=== PATIENT | female | born 1995 | race Caucasian/White ===

== ENCOUNTER 2016-07-13 02:15 | Emergency (ER) | payer BC ==
[2016-07-13 02:27] VITALS: BP 111/77
[2016-07-13] MEDS ORDERED: Sodium Chloride 0.9% 10 ML Syringe FLUSH PRN (02:36)
[2016-07-13] MEDS ORDERED: Famotidine 20 MG/2 ML SDV IVPUSH ONE (02:36)
[2016-07-13] MEDS ORDERED: Ondansetron 4 MG/2 ML SDV IVPUSH ONE (02:36)
[2016-07-13] MEDS ORDERED: Sodium Chloride 0.9% 1,000 ML IV SCH (02:45)
--- NOTE | 2016-07-13 03:56 | EDM.PDOC ---
ED HPI GI/ABDOMINAL - General Chief Complaint: Gastrointestinal Problem Stated Complaint: VOMITING BLOOD Time Seen by Provider: 07/13/16 02:35 Source of Information: Reports: Patient, RN notes reviewed - History of Present Illness INITIAL COMMENTS - FREE TEXT/NARRATIVE: 20-year-old female vomited blood twice this floor person about one hour ago just a few minutes apart. She had been drinking alcohol quite heavily this last evening about 1-1/2 bottles of wine per her report. She was drinking some type of white wine. She then became ill about one hour ago felt like she needed to vomit, went to the bathroom and did vomit and with that there was a small amount of blood associated with the vomitus. When she vomited a second time once again there was a small amount of blood with that. She continues to feel very mildly nauseated. She's had no abdominal chest or other discomfort. She has not been having recent abdominal discomfort or heartburn. No history of peptic ulcer disease. No other known medical problems. - Related Data Allergies/ADRs: Allergies Allergy/AdvReac Type Severity Reaction Status Date / Time No Known Allergies Allergy Verified 07/13/16 02:27 Past Medical History Neurological History: Reports: Migraines Psychiatric History: Reports: Anxiety, Depression Social & Family History - Tobacco Use Smoking Status *Q: Current Every Day Smoker Years of Tobacco use: 5 Packs/Tins Daily: 0.5 Used Tobacco, but Quit: No Second Hand Smoke Exposure: Yes - Caffeine Use Caffeine Use: Reports: Soda - Recreational Drug Use Recreational Drug Use: No ED ROS GENERAL - Review of Systems Review Of Systems: See Below Constitutional: Reports: no symptoms HEENT: Denies: Throat pain Respiratory: Denies: shortness of breath Cardiovascular: Denies: Chest pain GI/Abdominal: Reports: Hematemesis, Nausea, Vomiting. Denies: Abdominal pain Musculoskeletal: Reports: no symptoms Skin: Reports: no symptoms Neurological: Reports: dizziness (mild). Denies: trouble speaking, difficulty walking ED EXAM, GI/ABD - Physical Exam Exam: See Below General Appearance: alert, no apparent distress Eyes: bilateral: pale conjunctiva (there is mild conjunctival injection bilaterally) Nose: normal inspection, other (no blood or other drainage) Throat/Mouth: Normal inspection, Normal oropharynx, Other (no intraoral lesions visible, no blood) Head: atraumatic. No: facial swelling Neck: supple, full range of motion Respiratory/Chest: lungs clear, normal breath sounds Cardiovascular: tachycardia GI/Abdominal: soft, non tender. No: guarding, rebound Extremities: normal inspection, normal range of motion Neurological: alert, oriented, no motor/sensory deficits Skin Exam: Warm, Dry, Normal color, No rash Course - Vital Signs Last Recorded V/S: Last Vital Signs Temp 97.1 F 07/13/16 02:22 Pulse 105 H 07/13/16 02:22 Resp 18 07/13/16 02:22 BP 111/77 07/13/16 02:22 Pulse Ox 100 07/13/16 02:22 - Orders/Labs/Meds Orders: Active Orders 24 hr Category Date Time Status Peripheral IV Care [RC] . DIRECTED Care 07/13/16 02:36 Active Sodium Chloride 0.9% [Normal Saline] 1,000 ml Med 07/13/16 02:45 Active IV ONETIME Sodium Chloride 0.9% [Saline Flush] Med 07/13/16 02:36 Active 10 ml FLUSH ASDIRECTED PRN Peripheral IV Insertion Adult [OM.PC] Stat Oth 07/13/16 02:36 Ordered Medication Orders Sodium Chloride (Normal Saline) 1,000 mls @ 999 mls/hr IV ONETIME VALDO Last Admin: 07/13/16 02:48 Dose: 999 mls/hr Sodium Chloride (Saline Flush) 10 ml FLUSH ASDIRECTED PRN PRN Reason: Keep Vein Open Last Admin: 07/13/16 02:45 Dose: 10 ml Labs: Laboratory Tests 07/13/16 07/13/16 Range/Units 02:45 02:45 WBC 10.28 H (3.98-10.04) K/mm3 RBC 5.07 (3.98-5.22) M/mm3 Hgb 15.6 (11.2-15.7) gm/L Hct 45.1 H (34.1-44.9) % MCV 89.0 (79.4-94.8) fl MCH 30.8 (25.6-32.2) pg MCHC 34.6 (32.2-35.5) g/dl RDW Std Deviation 42.0 (36.4-46.3) fL Plt Count 284 (182-369) K/mm3 MPV 9.7 (9.4-12.3) fl Neut % (Auto) 69.0 (34.0-71.1) % Lymph % (Auto) 24.6 (19.3-51.7) % [place] % (Auto) 4.7 (4.7-12.5) % Eos % (Auto) 0.5 L (0.7-5.8) Baso % (Auto) 0.6 (0.1-1.2) % Neut # 7.10 H (1.56-6.13) K/mm3 Lymph # 2.53 (1.18-3.74) K/mm3 [place] # 0.48 H (0.24-0.36) K/mm3 Eos # 0.05 (0.04-0.36) K/mm3 Baso # 0.06 (0.01-0.08) K/mm3 Sodium 141 (136-145) mEq/L Potassium 3.9 (3.5-5.1) mEq/L Chloride 105 (98-107) mEq/L Carbon Dioxide 24 (21-32) mEq/L Anion Gap 15.9 H (5-15) BUN 9 (7-18) mg/dL Creatinine 0.6 (0.55-1.02) mg/dL Est Cr Clr Drug Dosing 105.64 mL/min Estimated GFR (MDRD) > 60 (>60) mL/min BUN/Creatinine Ratio 15.0 (14-18) Glucose 102 (74-106) mg/dL Calcium 8.3 L (8.5-10.1) mg/dL Total Bilirubin 0.2 (0.2-1.0) mg/dL AST 17 (15-37) U/L ALT 24 (14-59) U/L Alkaline Phosphatase 77 (46-116) U/L Total Protein 7.6 (6.4-8.2) g/dl Albumin 4.1 (3.4-5.0) g/dl Globulin 3.5 gm/dL Albumin/Globulin Ratio 1.2 (1-2) Ethyl Alcohol 0.22 (0.00) gm% Meds: Medications Generic Name Dose Route Start Last Admin Trade Name Freq PRN Reason Stop Dose Admin Sodium Chloride 1,000 mls @ 999 mls/hr 07/13/16 02:45 07/13/16 02:48 Normal Saline IV 999 mls/hr ONETIME VALDO Administration Sodium Chloride 10 ml 07/13/16 02:36 07/13/16 02:45 Saline Flush FLUSH 10 ml ASDIRECTED PRN Administration Keep Vein Open Discontinued Medications Generic Name Dose Route Start Last Admin Trade Name Isaacq PRN Reason Stop Dose Admin Famotidine 20 mg 07/13/16 02:36 07/13/16 02:52 Pepcid IVPUSH 07/13/16 02:37 20 mg ONETIME ONE Administration Ondansetron HCl 4 mg 07/13/16 02:36 07/13/16 02:49 Zofran IVPUSH 07/13/16 02:37 4 mg ONETIME ONE Administration - Re-Assessments/Exams Free Text/Narrative Re-Assessment/Exam: 07/13/16 04:00. there has been no nausea, vomiting or hematemesis while here in the ED. No chest or abdominal pain. Labs are as documented. Discharge instructions as documented Departure - Departure Time of Disposition: 03:55 Disposition: Home, Self-Care 01 Condition: fair Clinical Impression: Hematemesis Qualifiers: Nausea presence: with nausea Qualified Code(s): K92.0 - Hematemesis Alcohol intoxication Qualifiers: Complication of substance-induced condition: uncomplicated Qualified Code(s): F10.120 - Alcohol abuse with intoxication, uncomplicated Referrals: PCP,None [Primary Care Provider] - Forms: ED Department Discharge Additional Instructions: rest, drink plenty of water this morning, stick to clear liquids for the next few hours and then careful bland diet as tolerated, avoid further alcohol. Followup clinic as needed, return to ED as needed - My Orders Last 24 Hours: My Active Orders 07/13/16 02:36 Peripheral IV Care [RC] . DIRECTED Sodium Chloride 0.9% [Saline Flush] 10 ml FLUSH ASDIRECTED PRN Peripheral IV Insertion Adult [OM.PC] Stat 07/13/16 02:45 Sodium Chloride 0.9% [Normal Saline] 1,000 ml IV ONETIME - Assessment/Plan Last 24 Hours: My Active Orders 07/13/16 02:36 Peripheral IV Care [RC] . DIRECTED Sodium Chloride 0.9% [Saline Flush] 10 ml FLUSH ASDIRECTED PRN Peripheral IV Insertion Adult [OM.PC] Stat 07/13/16 02:45 Sodium Chloride 0.9% [Normal Saline] 1,000 ml IV ONETIME
== END 2016-07-13 04:11 | disposition home or self-care (01) ==
LOC: JD.ED 02:15
DX: K92.0 Hematemesis (principal); F10.120 Alcohol abuse with intoxication, uncomplicated; F17.200 Nicotine dependence, unspecified, uncomplicated
CPT/HCPCS: 36415; 80053; 85025; 96361; 96374; 96375; 99285; G0480; J2405; J7040; J7050; 99284

== ENCOUNTER 2020-05-10 13:04 | Emergency (ER) | payer SELFPAY ==
[2020-05-10 13:17] VITALS: BP 125/75; PULSE 116
[2020-05-10] MEDS ORDERED: Ketorolac 60 MG/2 ML SDV IM ONE (13:31)
--- NOTE | 2020-05-10 13:35 | EDM.PDOC ---
ED HPI GENERAL MEDICAL PROBLEM - General Chief Complaint: Flank Pain Stated Complaint: R SIDE PAIN Time Seen by Provider: 05/10/20 13:12 Source of Information: Reports: Patient History Limitations: Reports: No Limitations - History of Present Illness INITIAL COMMENTS - FREE TEXT/NARRATIVE: 24-year-old female presents to the emergency department with complaints of right anterior posterior rib pain. Patient states that 2 days ago she fell out of bed and hit her right lateral rib area on the corner of the nightstand. 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 Patient states it is almost unbearable to take a deep breath. Right Chest Pain Score (Numeric/FACES): 10 - Related Data Allergies Allergy/AdvReac Type Severity Reaction Status Date / Time No Known Allergies Allergy Verified 05/10/20 13:15 Home Meds: Home Meds Naproxen 500 mg PO Q12H #10 tablet 05/10/20 [Rx] Past Medical History - Past Health History Medical/Surgical History: Denies Medical/Surgical History Neurological History: Reports: Migraines Psychiatric History: Reports: Anxiety, Depression Social & Family History - Tobacco Use Tobacco Use Status *Q: Never Tobacco User - Caffeine Use Caffeine Use: Reports: Soda ED ROS GENERAL - Review of Systems Review Of Systems: See Below Constitutional: Reports: No Symptoms HEENT: Reports: No Symptoms Respiratory: Reports: No Symptoms Cardiovascular: Reports: No Symptoms Endocrine: Reports: No Symptoms GI/Abdominal: Reports: No Symptoms : Reports: No Symptoms Musculoskeletal: Reports: Back Pain (Right lateral rib pain) Skin: Reports: No Symptoms Neurological: Reports: No Symptoms Psychiatric: Reports: No Symptoms Hematologic/Lymphatic: Reports: No Symptoms Immunologic: Reports: No Symptoms ED EXAM, UPPER BACK/NECK PAIN - Physical Exam Exam: See Below Exam Limited By: No Limitations General Appearance: Alert, WD/WN, Moderate Distress Eye Exam: Bilateral Eye: PERRL Ears Exam: Hearing Grossly Normal Nose Exam: Normal Inspection Throat/Mouth Exam: Normal Voice, No Airway Compromise Head Exam: Atraumatic, Normocephalic Neck Exam: Non-Tender, Full Range of Motion, Normal Alignment, Normal Inspection GI/Abdominal: Normal Bowel Sounds, Soft, Non-Tender, No Distention (Female) Exam: Deferred Rectal (Female) Exam: Deferred Back Exam: Normal Inspection, Full Range of Motion, Other (Right lateral rib pain with coughing, deep breathing, and palpation) Extremities: Normal Inspection, Normal Range of Motion, Non-Tender, No Pedal Edema, Normal Capillary Refill Neurologic: Alert, Normal Mood/Affect, Oriented x 3 Psychiatric: Normal Affect, Anxious Skin Exam: Normal Color, Warm/Dry Lymphatic: No Adenopathy Course - Vital Signs Text/Narrative:: I have ordered a chest x-ray on this patient with rib detail and will also order Toradol for this patient. Last Recorded V/S: Last Vital Signs Temp 98.3 F 05/10/20 13:15 Pulse 116 H 05/10/20 13:15 Resp 16 05/10/20 13:15 BP 125/75 05/10/20 13:15 Pulse Ox 100 05/10/20 13:15 - Orders/Labs/Meds Orders: Active Orders 24 hr Category Date Time Status Chest Abdomen Pelvis w Cont [CT] Stat Exams 05/10/20 14:27 Taken Ribs 3V w Chest Bi [CR] Stat Exams 05/10/20 13:26 Taken Meds: Medications Discontinued Medications Generic Name Dose Route Start Last Admin Trade Name Freq PRN Reason Stop Dose Admin Iopamidol 100 ml 05/10/20 14:30 05/10/20 14:55 Isovue-300 (61%) IVPUSH 05/10/20 14:31 100 ml ONETIME ONE Administration Ketorolac Tromethamine 60 mg 05/10/20 13:31 05/10/20 13:56 Toradol IM 05/10/20 13:32 60 mg ONETIME ONE Administration - Radiology Interpretation Free Text/Narrative:: X-ray of the ribs with PA chest for review radiology report: No acute findings. - Re-Assessments/Exams Free Text/Narrative Re-Assessment/Exam: 05/10/20 14:28 Patient reports that she does have some pain relief from the Toradol, however she is still exquisitely tender to right upper abdomen just below the ribs with palpation or deep breathing. Discussed the option of CT of the chest abdomen and pelvis and the patient is agreeable to this 05/10/20 15:12 CT of the chest abdomen and pelvis radiology impression: 1. There is no evidence of pneumothorax. 2. There are no pleural effusions present. 3. No acute changes. 4. There is fat-containing umbilical hernia. 5. Right adnexal cystic lesion measuring 2.5 cm. 6. There is a diffuse decrease in hepatic parenchymal density, consistent with mild fatty infiltration. 7. Nonspecific thickening of the irby of the ascending and transverse colon may be consistent with colitis. Departure - Departure Time of Disposition: 15:13 Disposition: Home, Self-Care 01 Condition: Good Clinical Impression: Muscle strain - Discharge Information Prescriptions: Naproxen 500 mg PO Q12H #10 tablet Instructions: Flank Pain, Adult, [id number] Referrals: PCP,None [Primary Care Provider] - Forms: ED Department Discharge Additional Instructions: You were seen in the emergency department today with complaints with right rib and back pain after sustaining a fall off a bed and hitting a nightstand. X-ray does not reveal any acute rib fractures. A CT scan was performed and there is no rib fracture seen no it is there any liver lacerations or any acute abdominal trauma. Go home and rest. Take naproxen 500 mg every 12 hours for the next 48 hours. Be sure to take this with food. You can also try ice or heat for comfort. Should your condition worsen or change please return to the emergency department Sepsis Event Note (ED) - Evaluation Sepsis Screening Result: No Definite Risk - Focused Exam Vital Signs: Vital Signs Temp Pulse Resp BP Pulse Ox 05/10/20 13:15 98.3 F 116 H 16 125/75 100 - My Orders Last 24 Hours: My Active Orders 05/10/20 13:26 Ribs 3V w Chest Bi [CR] Stat 05/10/20 14:27 Chest Abdomen Pelvis w Cont [CT] Stat - Assessment/Plan Last 24 Hours: My Active Orders 05/10/20 13:26 Ribs 3V w Chest Bi [CR] Stat 05/10/20 14:27 Chest Abdomen Pelvis w Cont [CT] Stat
[2020-05-10] MEDS ORDERED: Iohexol 350 MG/ML 75 ML Bottle IVPUSH ONE (14:30)
[2020-05-10] MEDS ORDERED: Iopamidol 612 MG/ML 100 ML Bottle IVPUSH ONE (14:30)
--- NOTE | 2020-05-11 10:43 | CT ---
CT chest Technique: Multiple axial sections were obtained from above the lung apices inferiorly through the lung bases. Intravenous contrast was utilized. Reconstructed coronal and sagittal images were obtained. Findings: Mediastinum appears within normal limits. Respiratory motion artifact is noted within the ascending aorta with no aneurysm. No pericardial thickening is seen. No mediastinal mass or adenopathy is seen. Axillary regions are within normal limits. Lung window settings were reviewed. No acute parenchymal process is appreciated. Bone window settings were reviewed which show no acute osseous finding. Impression: 1. Nothing acute seen on CT study of the chest. Diagnostic code #1 I agree with preliminary report from [facility], finalized on 05/08/20, 4:[address] abdomen and pelvis Technique: Multiple axial sections were obtained from above the dome of the diaphragm inferiorly through the pubic symphysis. Intravenous contrast was utilized. No oral contrast has been given. Comparison: Prior CT abdomen and pelvis study of 07/03/10. Findings: Liver shows decreased density which is compatible with fatty infiltration. Spleen appears within normal limits. Small hiatal hernia is noted. Adrenal glands show no nodule. Kidneys show symmetric contrast enhancement without hydronephrosis or mass. Pancreas appears normal. Gallbladder contains no calcified gallstones. Aorta shows no aneurysm. No retroperitoneal adenopathy or mesenteric abnormalities are seen. Small fat-containing umbilical hernia is noted. 2.6 cm cyst is noted within the right ovary most likely physiologic. No pelvic mass or adenopathy is appreciated. Appendix is felt to be visualized and is normal in size. Ascending aorta shows no definite abnormality when allowing for lack of distention. Bone window settings were reviewed which show no acute osseous findings. Impression: 1. Fatty infiltration within the liver. 2. Nothing acute is appreciated. 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
--- NOTE | 2020-05-11 10:44 | CR ---
Chest and bilateral ribs: Frontal view of the chest was obtained as well as oblique views of both ribs. Comparison: No previous study. Findings: Heart size and mediastinum are normal. Lungs are clear with no acute parenchymal change. No discrete rib abnormality is appreciated. Impression: 1. Nothing acute is seen on chest and oblique view of both ribs. 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
== END 2020-05-10 15:34 | disposition home or self-care (01) ==
LOC: JD.ED 13:04
DX: S29.011A Strain of muscle and tendon of front wall of thorax, initial encounter (principal); W06.XXXA Fall from bed, initial encounter
CPT/HCPCS: 71111; 71260; 74177; 96372; 99284; J1885; Q9967; 99283

== ENCOUNTER 2021-01-08 13:37 | Inpatient (IN) | payer MEDICAID ==
--- NOTE | 2021-01-08 13:53 | EDM.PDOC ---
ED HPI GENERAL MEDICAL PROBLEM - General Chief Complaint: Drug or Alcohol Abuse Stated Complaint: UNRESPONSIVE Time Seen by Provider: 01/08/21 13:56 Source of Information: Reports: Other (Brother secondhand through the nurse) History Limitations: Reports: Altered Mental Status - History of Present Illness INITIAL COMMENTS - FREE TEXT/NARRATIVE: 25-year-old female is brought to the ED by her brother from home due to being unresponsive. She apparently gets up and smokes a cigarette almost every hour and she did get up at all last night. She is acting confused and hallucinating it appears primarily visual hallucinations. He knows that she drinks alcohol to excess usually whiskey but he is not sure if anything else. Not sure about any recreational drug use. To his knowledge she has not been diagnosed with cirrhosis of the liver. She will answer 1 word answers to a few questions asked of her. She appears confused and disoriented Onset: Gradual (Atypical for her. And did not apparently awaken at all overnight which is) Onset Date: 01/07/21 Duration: Hour(s):, Getting Worse Location: Reports: Generalized ([facility] to the ED unresponsive) Quality: Reports: Other Severity: Severe Improves with: Reports: None Worsens with: Reports: None Context: Denies: Activity, Exercise, Lifting, Sick Contact, Trauma, Other Associated Symptoms: Reports: Confusion, Loss of Appetite, Malaise, Shortness of Breath Treatments [employer]PERATOR: Reports: Other (see below) (Unknown.) - Related Data Allergies Allergy/AdvReac Type Severity Reaction Status Date / Time No Known Allergies Allergy Verified 01/08/21 14:00 Home Meds: Home Meds . 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 Denies: Fever, Chills HEENT: Reports: No Symptoms Respiratory: Reports: No Symptoms Cardiovascular: Reports: No Symptoms Endocrine: Reports: Fatigue GI/Abdominal: Reports: Abdominal Pain, Nausea : Reports: Other Musculoskeletal: Reports: No Symptoms Skin: Reports: Bruising Neurological: Reports: No Symptoms Psychiatric: Reports: No Symptoms Hematologic/Lymphatic: Reports: No Symptoms Immunologic: Reports: No Symptoms - Physical Exam Exam: See Below Exam Limited By: Altered Mental Status General Appearance: Lethargic, Other (Opens and closes her eyes and will monitor the occasional word. Temperature is 36.7 she feels cool to touch. Heart rate was 136/min in sinus on the monitor respiratory is 18 with O2 sats 100% room air. BP is 94/33.). No: Alert Eye Exam: Bilateral Eye: Normal Inspection (Mild scleral icterus bilaterally. Mild blepharal pallor), PERRL (No gaze palsy pupils are equal and responsive to light and accommodation) Throat/Mouth: Other (Tongue is very dry and coated). No: Normal Oropharynx Head Exam: Atraumatic, Normocephalic, Other Neck: Normal Inspection. No: Lymphadenopathy (L), Lymphadenopathy (R) Respiratory/Chest: No Respiratory Distress, Lungs Clear, Normal Breath Sounds, No Accessory Muscle Use Cardiovascular: Normal Peripheral Pulses, No Edema, No Gallop, No Murmur, Tachycardia (Sinus tachycardia on the monitor at 135/min) GI/Abdominal: Soft, Abnormal Bowel Sounds, Hepatomegaly (Bowel sounds are absent there is palpable 4 fingerbreadths below the right costal margin), Other (Obvious ascites no palpable uterus) Neuro Exam (Abbreviated): Inattentive, Confused, Disoriented, Other (Answers occasionally in a one-word response) DTR: 0: Bicep (R), Bicep (L), Patella (R), Patella (L), Achilles (R), Achilles (L) Back Exam: Normal Inspection, Full Range of Motion. No: CVA Tenderness (L), CVA Tenderness (R) Extremities: Normal Inspection, Normal Range of Motion, Non-Tender, No Pedal Edema Psychiatric: Other (Unable to assess) Skin Exam: Dry, Intact, Cool, Other (Patient is a moreno sallow color to her suggestive of renal insufficiency). No: Normal Color #1 Interpretation EKG Date: 01/08/21 Time: 14:07 Rhythm: Other (Sinus tachycardia) Rate (Beats/Min): 135 [place]: Normal P-Wave: Present (P wave is inverted in V1 V2 unclear etiology consider left atrial hypertrophy) QRS: Other (There are Q waves in leads II, III and aVF less than 25% of the QRS complex and are considered insignificant Q waves are also present in leads V3 to V6 again less than 25% the QRS complex considered insignificant) ST-T: Other (Baseline wanders. Diffuse repolarization abnormality suspect metabolic abnormality) QT: Normal EKG Interpretation Comments: Abnormal ECG Course - Vital Signs Last Recorded V/S: Last Vital Signs Temp 36.7 C 01/08/21 13:56 Pulse 130 H 01/08/21 13:56 Resp 18 01/08/21 13:56 BP 94/33 L 01/08/21 13:56 Pulse Ox 100 01/08/21 13:56 - Orders/Labs/Meds Orders: Active Orders 24 hr Category Date Time Status Admission Status [Patient Status] [ADT] Routine ADT 01/08/21 20:13 Ordered Insert Tineo Catheter [Insert Urinary Catheter] [OM.PC] Care 01/08/21 19:15 Ordered Q24H Insert Tineo Catheter [Insert Urinary Catheter] [OM.PC] Care 01/08/21 19:30 Ordered Q24H Urinary Catheter Assessment [RC] ASDIRECTED Care 01/08/21 19:05 Active Abdomen Pelvis w Cont [CT] Stat Exams 01/08/21 14:53 Taken Chest 1V Frontal [CR] Stat Exams 01/08/21 13:47 Taken Head wo Cont [CT] Stat Exams 01/08/21 14:55 Taken BLOOD CULTURE [MREF] Stat Lab 01/08/21 14:05 Received BLOOD CULTURE [MREF] Stat Lab 01/08/21 14:16 Received CULTURE URINE [MREF] Stat Lab 01/08/21 13:50 Received REFLEX LACTIC ACID YES OR NO [CHEM] Routine Lab 01/08/21 18:46 Received Dextrose 5%-0.9% NaCl [Dextrose 5%-Normal Saline] 1,000 Med 01/08/21 14:00 Active ml IV ASDIRECTED Dextrose 5%-0.9% NaCl [Dextrose 5%-Normal Saline] 1,000 Med 01/08/21 19:15 Active ml IV ASDIRECTED Sodium Chloride 0.9% [Normal Saline] 1,000 ml Med 01/08/21 15:30 Active IV ASDIRECTED Sodium Chloride 0.9% [Normal Saline] 1,000 ml Med 01/08/21 17:45 Active IV ASDIRECTED Sodium Chloride 0.9% [Normal Saline] 1,000 ml Med 01/08/21 19:00 Active IV ASDIRECTED Blood Culture x2 Reflex Set [OM.PC] Stat Oth 01/08/21 13:47 Ordered Medication Orders Dextrose/Sodium Chloride (Dextrose 5%-Normal Saline) 1,000 mls @ 500 mls/hr IV ASDIRECTED VALDO Last Infusion: 01/08/21 14:07 Dose: 500 mls/hr Documented by: Admin: 01/08/21 14:07 Dose: 250 mls/hr Documented by: DARVIN Sodium Chloride (Normal Saline) 1,000 mls @ 999 mls/hr IV ASDIRECTED VALDO Last Admin: 01/08/21 15:40 Dose: 999 mls/hr Documented by: DARVIN Sodium Chloride (Normal Saline) 1,000 mls @ 999 mls/hr IV ASDIRECTED VALDO Last Admin: 01/08/21 17:46 Dose: 999 mls/hr Documented by: DARVIN Sodium Chloride (Normal Saline) 1,000 mls @ 150 mls/hr IV ASDIRECTED VALDO Last Admin: 01/08/21 18:56 Dose: 150 mls/hr Documented by: DARVIN Dextrose/Sodium Chloride (Dextrose 5%-Normal Saline) 1,000 mls @ 999 mls/hr IV ASDIRECTED VALDO Last Admin: 01/08/21 19:18 Dose: 999 mls/hr Documented by: DARVIN Labs: Laboratory Tests 01/08/21 01/08/21 01/08/21 Range/Units 09:14 13:45 13:46 WBC (3.98-10.04) K/mm3 RBC (3.98-5.22) M/mm3 Hgb (11.2-15.7) gm/dl Hct (34.1-44.9) % MCV (79.4-94.8) fl MCH (25.6-32.2) pg MCHC (32.2-35.5) g/dl RDW Std Deviation (36.4-46.3) fL Plt Count (182-369) K/mm3 MPV (9.4-12.3) fl Neut % (Auto) (34.0-71.1) % Lymph % (Auto) (19.3-51.7) % [place] % (Auto) (4.7-12.5) % Eos % (Auto) (0.7-5.8) Baso % (Auto) (0.1-1.2) % Neut # (Auto) (1.56-6.13) K/mm3 Lymph # (Auto) (1.18-3.74) K/mm3 [place] # (Auto) (0.24-0.36) K/mm3 Eos # (Auto) (0.04-0.36) K/mm3 Baso # (Auto) (0.01-0.08) K/mm3 Manual Slide Review PT (9.7-12.0) SECONDS INR APTT (21.7-31.4) SECONDS Puncture Site Lt radial ABG pH 7.47 H (7.35-7.45) ABG pCO2 24.3 L (35.0-45.0) mmHg ABG pO2 78.0 L (80.0-100.0) mmHg ABG HCO3 17.6 L (22.0-26.0) meq/L ABG O2 Saturation 96.1 (96.0-97.0) % ABG Base Excess -4.1 L (-2-2.0) O2 Delivery Device Room air Sodium (136-145) mEq/L Potassium (3.5-5.1) mEq/L Chloride (98-107) mEq/L Carbon Dioxide (21-32) mEq/L Anion Gap (5-15) BUN (7-18) mg/dL Creatinine (0.55-1.02) mg/dL Est Cr Clr Drug Dosing Estimated GFR (MDRD) (>60) mL/min BUN/Creatinine Ratio (14-18) Glucose (70-99) mg/dL POC Glucose 132 H (70-99) mg/dL Lactic Acid (0.4-2.0) mmol/L Calcium (8.5-10.1) mg/dL Magnesium (1.8-2.4) mg/dL Total Bilirubin (0.2-1.0) mg/dL GGT (5-55) U/L AST (15-37) U/L ALT (14-59) U/L Alkaline Phosphatase (46-116) U/L Ammonia (11-32) umol/L Creatine Kinase 149 (26-192) U/L Troponin I (0.00-0.056) ng/mL C-Reactive Protein (<1.0) mg/dL NT-Pro-B Natriuret Pep (0-125) pg/mL Total Protein (6.4-8.2) g/dl Albumin (3.4-5.0) g/dl Globulin gm/dL Albumin/Globulin Ratio (1-2) Lipase (73-393) U/L HCG, Qual (NEGATIVE) Urine Color (Yellow) Urine Appearance (Clear) Urine pH (5.0-8.0) Ur Specific [place] (1.005-1.030) Urine Protein (Negative) Urine Glucose (UA) (Negative) Urine Ketones (Negative) Urine Occult Blood (Negative) Urine Nitrite (Negative) Urine Bilirubin (Negative) Urine Urobilinogen (0.2-1.0) Ur Leukocyte Esterase (Negative) U Hyaline Cast (Auto) (0-5) /lpf Urine RBC (0-5) /hpf Urine WBC (0-5) /hpf Ur Squamous Epith Cells (0-5) /hpf Urine Bacteria (FEW) /hpf Urine Mucus (FEW) /hpf Urine Opiates Screen (HLHFGH=195) Ur Buprenorphine Scrn (CUTOFF=10) Ur Oxycodone Screen (YNS5WE=280) Urine Methadone Screen (FKPZJT=416) Ur Propoxyphene Screen (XSQYGN=361) Ur Barbiturates Screen (VIGHIW=946) Ur Tricyclics Screen (BTEQWU=352) Ur Phencyclidine Scrn (CUTOFF=25) Ur Amphetamine Screen (FZVZQM=149) U Methamphetamines Scrn (PBWJCE=741) U Benzodiazepines Scrn (LCFIKL=673) U Cocaine Metab Screen (XUCYZR=169) U Marijuana (THC) Screen (CUTOFF=50) Ethyl Alcohol (0.00) gm% Ketones (0.0-0.3) mM SARS-CoV-2 RNA (ROZINA) (NEGATIVE) 01/08/21 01/08/21 01/08/21 Range/Units 13:46 13:47 13:50 WBC (3.98-10.04) K/mm3 RBC (3.98-5.22) M/mm3 Hgb (11.2-15.7) gm/dl Hct (34.1-44.9) % MCV (79.4-94.8) fl MCH (25.6-32.2) pg MCHC (32.2-35.5) g/dl RDW Std Deviation (36.4-46.3) fL Plt Count (182-369) K/mm3 MPV (9.4-12.3) fl Neut % (Auto) (34.0-71.1) % Lymph % (Auto) (19.3-51.7) % [place] % (Auto) (4.7-12.5) % Eos % (Auto) (0.7-5.8) Baso % (Auto) (0.1-1.2) % Neut # (Auto) (1.56-6.13) K/mm3 Lymph # (Auto) (1.18-3.74) K/mm3 [place] # (Auto) (0.24-0.36) K/mm3 Eos # (Auto) (0.04-0.36) K/mm3 Baso # (Auto) (0.01-0.08) K/mm3 Manual Slide Review PT 12.3 H (9.7-12.0) SECONDS INR 1.15 APTT 22.6 (21.7-31.4) SECONDS Puncture Site ABG pH (7.35-7.45) ABG pCO2 (35.0-45.0) mmHg ABG pO2 (80.0-100.0) mmHg ABG HCO3 (22.0-26.0) meq/L ABG O2 Saturation (96.0-97.0) % ABG Base Excess (-2-2.0) O2 Delivery Device Sodium (136-145) mEq/L Potassium (3.5-5.1) mEq/L Chloride (98-107) mEq/L Carbon Dioxide (21-32) mEq/L Anion Gap (5-15) BUN (7-18) mg/dL Creatinine (0.55-1.02) mg/dL Est Cr Clr Drug Dosing Estimated GFR (MDRD) (>60) mL/min BUN/Creatinine Ratio (14-18) Glucose (70-99) mg/dL POC Glucose (70-99) mg/dL Lactic Acid (0.4-2.0) mmol/L Calcium (8.5-10.1) mg/dL Magnesium (1.8-2.4) mg/dL Total Bilirubin (0.2-1.0) mg/dL GGT (5-55) U/L AST (15-37) U/L ALT (14-59) U/L Alkaline Phosphatase (46-116) U/L Ammonia (11-32) umol/L Creatine Kinase (26-192) U/L Troponin I (0.00-0.056) ng/mL C-Reactive Protein (<1.0) mg/dL NT-Pro-B Natriuret Pep (0-125) pg/mL Total Protein (6.4-8.2) g/dl Albumin (3.4-5.0) g/dl Globulin gm/dL Albumin/Globulin Ratio (1-2) Lipase (73-393) U/L HCG, Qual (NEGATIVE) Urine Color (Yellow) Urine Appearance (Clear) Urine pH (5.0-8.0) Ur Specific [place] (1.005-1.030) Urine Protein (Negative) Urine Glucose (UA) (Negative) Urine Ketones (Negative) Urine Occult Blood (Negative) Urine Nitrite (Negative) Urine Bilirubin (Negative) Urine Urobilinogen (0.2-1.0) Ur Leukocyte Esterase (Negative) U Hyaline Cast (Auto) (0-5) /lpf Urine RBC (0-5) /hpf Urine WBC (0-5) /hpf Ur Squamous Epith Cells (0-5) /hpf Urine Bacteria (FEW) /hpf Urine Mucus (FEW) /hpf Urine Opiates Screen (PXDTZX=209) Ur Buprenorphine Scrn (CUTOFF=10) Ur Oxycodone Screen (UYH9VT=957) Urine Methadone Screen (QHPTZJ=721) Ur Propoxyphene Screen (TPEYLI=278) Ur Barbiturates Screen (YAYAYF=608) Ur Tricyclics Screen (QECQMJ=251) Ur Phencyclidine Scrn (CUTOFF=25) Ur Amphetamine Screen (ZHPHPM=478) U Methamphetamines Scrn (RADFII=025) U Benzodiazepines Scrn (YKGPEX=276) U Cocaine Metab Screen (SKNMHL=793) U Marijuana (THC) Screen (CUTOFF=50) Ethyl Alcohol (0.00) gm% Ketones 2.46 (0.0-0.3) mM SARS-CoV-2 RNA (ROZINA) Negative (NEGATIVE) 01/08/21 01/08/21 01/08/21 Range/Units 13:50 13:55 14:06 WBC 15.56 H (3.98-10.04) K/mm3 RBC 4.29 (3.98-5.22) M/mm3 Hgb 15.3 (11.2-15.7) gm/dl Hct 44.4 (34.1-44.9) % MCV 103.5 H D (79.4-94.8) fl MCH 35.7 H (25.6-32.2) pg MCHC 34.5 (32.2-35.5) g/dl RDW Std Deviation 55.1 H (36.4-46.3) fL Plt Count 390 H D (182-369) K/mm3 MPV 11.2 (9.4-12.3) fl Neut % (Auto) 77.1 H (34.0-71.1) % Lymph % (Auto) 13.6 L (19.3-51.7) % [place] % (Auto) 7.3 (4.7-12.5) % Eos % (Auto) 0.2 L (0.7-5.8) Baso % (Auto) 0.9 (0.1-1.2) % Neut # (Auto) 11.99 H (1.56-6.13) K/mm3 Lymph # (Auto) 2.12 (1.18-3.74) K/mm3 [place] # (Auto) 1.14 H (0.24-0.36) K/mm3 Eos # (Auto) 0.03 L (0.04-0.36) K/mm3 Baso # (Auto) 0.14 H (0.01-0.08) K/mm3 Manual Slide Review Abnormal smear PT (9.7-12.0) SECONDS INR APTT (21.7-31.4) SECONDS Puncture Site ABG pH (7.35-7.45) ABG pCO2 (35.0-45.0) mmHg ABG pO2 (80.0-100.0) mmHg ABG HCO3 (22.0-26.0) meq/L ABG O2 Saturation (96.0-97.0) % ABG Base Excess (-2-2.0) O2 Delivery Device Sodium (136-145) mEq/L Potassium (3.5-5.1) mEq/L Chloride (98-107) mEq/L Carbon Dioxide (21-32) mEq/L Anion Gap (5-15) BUN (7-18) mg/dL Creatinine (0.55-1.02) mg/dL Est Cr Clr Drug Dosing Estimated GFR (MDRD) (>60) mL/min BUN/Creatinine Ratio (14-18) Glucose (70-99) mg/dL POC Glucose (70-99) mg/dL Lactic Acid (0.4-2.0) mmol/L Calcium (8.5-10.1) mg/dL Magnesium (1.8-2.4) mg/dL Total Bilirubin (0.2-1.0) mg/dL GGT (5-55) U/L AST (15-37) U/L ALT (14-59) U/L Alkaline Phosphatase (46-116) U/L Ammonia (11-32) umol/L Creatine Kinase (26-192) U/L Troponin I (0.00-0.056) ng/mL C-Reactive Protein (<1.0) mg/dL NT-Pro-B Natriuret Pep (0-125) pg/mL Total Protein (6.4-8.2) g/dl Albumin (3.4-5.0) g/dl Globulin gm/dL Albumin/Globulin Ratio (1-2) Lipase (73-393) U/L HCG, Qual (NEGATIVE) Urine Color [place] H (Yellow) Urine Appearance Cloudy H (Clear) Urine pH 5.5 (5.0-8.0) Ur Specific [place] 1.025 (1.005-1.030) Urine Protein 1+ H (Negative) Urine Glucose (UA) Negative (Negative) Urine Ketones 1+ H (Negative) Urine Occult Blood Negative (Negative) Urine Nitrite Negative (Negative) Urine Bilirubin 3+ H (Negative) Urine Urobilinogen >=8.0 H (0.2-1.0) Ur Leukocyte Esterase Negative (Negative) U Hyaline Cast (Auto) 10-20 H (0-5) /lpf Urine RBC 0-5 (0-5) /hpf Urine WBC 5-10 H (0-5) /hpf Ur Squamous Epith Cells 0-5 (0-5) /hpf Urine Bacteria Many H (FEW) /hpf Urine Mucus Few (FEW) /hpf Urine Opiates Screen Negative (XNOEYQ=372) Ur Buprenorphine Scrn Negative (CUTOFF=10) Ur Oxycodone Screen Negative (KYV0NK=271) Urine Methadone Screen Negative (FKMYOD=530) Ur Propoxyphene Screen Negative (TOHTXA=667) Ur Barbiturates Screen Negative (GTQQDW=775) Ur Tricyclics Screen Negative (UJLMDC=090) Ur Phencyclidine Scrn Negative (CUTOFF=25) Ur Amphetamine Screen Negative (DVOIPK=094) U Methamphetamines Scrn Negative (SYSXCY=856) U Benzodiazepines Scrn Negative (EEBLIQ=740) U Cocaine Metab Screen Negative (MJAOAJ=118) U Marijuana (THC) Screen Negative (CUTOFF=50) Ethyl Alcohol (0.00) gm% Ketones (0.0-0.3) mM SARS-CoV-2 RNA (ROZINA) (NEGATIVE) 01/08/21 01/08/21 01/08/21 Range/Units 14:10 14:10 14:10 WBC (3.98-10.04) K/mm3 RBC (3.98-5.22) M/mm3 Hgb (11.2-15.7) gm/dl Hct (34.1-44.9) % MCV (79.4-94.8) fl MCH (25.6-32.2) pg MCHC (32.2-35.5) g/dl RDW Std Deviation (36.4-46.3) fL Plt Count (182-369) K/mm3 MPV (9.4-12.3) fl Neut % (Auto) (34.0-71.1) % Lymph % (Auto) (19.3-51.7) % [place] % (Auto) (4.7-12.5) % Eos % (Auto) (0.7-5.8) Baso % (Auto) (0.1-1.2) % Neut # (Auto) (1.56-6.13) K/mm3 Lymph # (Auto) (1.18-3.74) K/mm3 [place] # (Auto) (0.24-0.36) K/mm3 Eos # (Auto) (0.04-0.36) K/mm3 Baso # (Auto) (0.01-0.08) K/mm3 Manual Slide Review PT (9.7-12.0) SECONDS INR APTT (21.7-31.4) SECONDS Puncture Site ABG pH (7.35-7.45) ABG pCO2 (35.0-45.0) mmHg ABG pO2 (80.0-100.0) mmHg ABG HCO3 (22.0-26.0) meq/L ABG O2 Saturation (96.0-97.0) % ABG Base Excess (-2-2.0) O2 Delivery Device Sodium 136 (136-145) mEq/L Potassium 3.3 L (3.5-5.1) mEq/L Chloride 93 L D (98-107) mEq/L Carbon Dioxide 22 (21-32) mEq/L Anion Gap 24.3 H (5-15) BUN 26 H (7-18) mg/dL Creatinine 1.0 (0.55-1.02) mg/dL Est Cr Clr Drug Dosing TNP Estimated GFR (MDRD) > 60 (>60) mL/min BUN/Creatinine Ratio 26.0 H (14-18) Glucose 139 H (70-99) mg/dL POC Glucose (70-99) mg/dL Lactic Acid (0.4-2.0) mmol/L Calcium 9.0 (8.5-10.1) mg/dL Magnesium 2.4 (1.8-2.4) mg/dL Total Bilirubin 4.9 H (0.2-1.0) mg/dL GGT 494 H (5-55) U/L AST 371 H (15-37) U/L ALT 256 H (14-59) U/L Alkaline Phosphatase 156 H (46-116) U/L Ammonia (11-32) umol/L Creatine Kinase (26-192) U/L Troponin I 0.026 (0.00-0.056) ng/mL C-Reactive Protein 1.9 H* (<1.0) mg/dL NT-Pro-B Natriuret Pep 847 H (0-125) pg/mL Total Protein 6.9 (6.4-8.2) g/dl Albumin 3.1 L (3.4-5.0) g/dl Globulin 3.8 gm/dL Albumin/Globulin Ratio 0.8 L (1-2) Lipase 110 (73-393) U/L HCG, Qual Negative (NEGATIVE) Urine Color (Yellow) Urine Appearance (Clear) Urine pH (5.0-8.0) Ur Specific [place] (1.005-1.030) Urine Protein (Negative) Urine Glucose (UA) (Negative) Urine Ketones (Negative) Urine Occult Blood (Negative) Urine Nitrite (Negative) Urine Bilirubin (Negative) Urine Urobilinogen (0.2-1.0) Ur Leukocyte Esterase (Negative) U Hyaline Cast (Auto) (0-5) /lpf Urine RBC (0-5) /hpf Urine WBC (0-5) /hpf Ur Squamous Epith Cells (0-5) /hpf Urine Bacteria (FEW) /hpf Urine Mucus (FEW) /hpf Urine Opiates Screen (DXPAJC=393) Ur Buprenorphine Scrn (CUTOFF=10) Ur Oxycodone Screen (OSJ1BH=465) Urine Methadone Screen (TIZHFD=232) Ur Propoxyphene Screen (UVDWDL=433) Ur Barbiturates Screen (SEHMGR=485) Ur Tricyclics Screen (MPVJAN=540) Ur Phencyclidine Scrn (CUTOFF=25) Ur Amphetamine Screen (FAZDWA=144) U Methamphetamines Scrn (ZGYICV=690) U Benzodiazepines Scrn (LNXYZD=445) U Cocaine Metab Screen (QHLQEB=803) U Marijuana (THC) Screen (CUTOFF=50) Ethyl Alcohol 0.00 (0.00) gm% Ketones (0.0-0.3) mM SARS-CoV-2 RNA (ROZINA) (NEGATIVE) 01/08/21 01/08/21 01/08/21 Range/Units 14:16 14:16 18:05 WBC (3.98-10.04) K/mm3 RBC (3.98-5.22) M/mm3 Hgb (11.2-15.7) gm/dl Hct (34.1-44.9) % MCV (79.4-94.8) fl MCH (25.6-32.2) pg MCHC (32.2-35.5) g/dl RDW Std Deviation (36.4-46.3) fL Plt Count (182-369) K/mm3 MPV (9.4-12.3) fl Neut % (Auto) (34.0-71.1) % Lymph % (Auto) (19.3-51.7) % [place] % (Auto) (4.7-12.5) % Eos % (Auto) (0.7-5.8) Baso % (Auto) (0.1-1.2) % Neut # (Auto) (1.56-6.13) K/mm3 Lymph # (Auto) (1.18-3.74) K/mm3 [place] # (Auto) (0.24-0.36) K/mm3 Eos # (Auto) (0.04-0.36) K/mm3 Baso # (Auto) (0.01-0.08) K/mm3 Manual Slide Review PT (9.7-12.0) SECONDS INR APTT (21.7-31.4) SECONDS Puncture Site ABG pH (7.35-7.45) ABG pCO2 (35.0-45.0) mmHg ABG pO2 (80.0-100.0) mmHg ABG HCO3 (22.0-26.0) meq/L ABG O2 Saturation (96.0-97.0) % ABG Base Excess (-2-2.0) O2 Delivery Device Sodium (136-145) mEq/L Potassium (3.5-5.1) mEq/L Chloride (98-107) mEq/L Carbon Dioxide (21-32) mEq/L Anion Gap (5-15) BUN (7-18) mg/dL Creatinine (0.55-1.02) mg/dL Est Cr Clr Drug Dosing Estimated GFR (MDRD) (>60) mL/min BUN/Creatinine Ratio (14-18) Glucose (70-99) mg/dL POC Glucose (70-99) mg/dL Lactic Acid 10.7 H* 8.3 H* (0.4-2.0) mmol/L Calcium (8.5-10.1) mg/dL Magnesium (1.8-2.4) mg/dL Total Bilirubin (0.2-1.0) mg/dL GGT (5-55) U/L AST (15-37) U/L ALT (14-59) U/L Alkaline Phosphatase (46-116) U/L Ammonia 15 (11-32) umol/L Creatine Kinase (26-192) U/L Troponin I (0.00-0.056) ng/mL C-Reactive Protein (<1.0) mg/dL NT-Pro-B Natriuret Pep (0-125) pg/mL Total Protein (6.4-8.2) g/dl Albumin (3.4-5.0) g/dl Globulin gm/dL Albumin/Globulin Ratio (1-2) Lipase (73-393) U/L HCG, Qual (NEGATIVE) Urine Color (Yellow) Urine Appearance (Clear) Urine pH (5.0-8.0) Ur Specific [place] (1.005-1.030) Urine Protein (Negative) Urine Glucose (UA) (Negative) Urine Ketones (Negative) Urine Occult Blood (Negative) Urine Nitrite (Negative) Urine Bilirubin (Negative) Urine Urobilinogen (0.2-1.0) Ur Leukocyte Esterase (Negative) U Hyaline Cast (Auto) (0-5) /lpf Urine RBC (0-5) /hpf Urine WBC (0-5) /hpf Ur Squamous Epith Cells (0-5) /hpf Urine Bacteria (FEW) /hpf Urine Mucus (FEW) /hpf Urine Opiates Screen (TZIRIT=464) Ur Buprenorphine Scrn (CUTOFF=10) Ur Oxycodone Screen (DLP9FV=668) Urine Methadone Screen (UMKPBY=124) Ur Propoxyphene Screen (QPFTZV=174) Ur Barbiturates Screen (TVDSTH=657) Ur Tricyclics Screen (NVCTLV=258) Ur Phencyclidine Scrn (CUTOFF=25) Ur Amphetamine Screen (DEJOKL=638) U Methamphetamines Scrn (MDZSEU=866) U Benzodiazepines Scrn (AOZCGK=536) U Cocaine Metab Screen (BTPUEW=091) U Marijuana (THC) Screen (CUTOFF=50) Ethyl Alcohol (0.00) gm% Ketones (0.0-0.3) mM SARS-CoV-2 RNA (ROZINA) (NEGATIVE) 01/08/21 Range/Units 19:05 WBC (3.98-10.04) K/mm3 RBC (3.98-5.22) M/mm3 Hgb (11.2-15.7) gm/dl Hct (34.1-44.9) % MCV (79.4-94.8) fl MCH (25.6-32.2) pg MCHC (32.2-35.5) g/dl RDW Std Deviation (36.4-46.3) fL Plt Count (182-369) K/mm3 MPV (9.4-12.3) fl Neut % (Auto) (34.0-71.1) % Lymph % (Auto) (19.3-51.7) % [place] % (Auto) (4.7-12.5) % Eos % (Auto) (0.7-5.8) Baso % (Auto) (0.1-1.2) % Neut # (Auto) (1.56-6.13) K/mm3 Lymph # (Auto) (1.18-3.74) K/mm3 [place] # (Auto) (0.24-0.36) K/mm3 Eos # (Auto) (0.04-0.36) K/mm3 Baso # (Auto) (0.01-0.08) K/mm3 Manual Slide Review PT (9.7-12.0) SECONDS INR APTT (21.7-31.4) SECONDS Puncture Site ABG pH (7.35-7.45) ABG pCO2 (35.0-45.0) mmHg ABG pO2 (80.0-100.0) mmHg ABG HCO3 (22.0-26.0) meq/L ABG O2 Saturation (96.0-97.0) % ABG Base Excess (-2-2.0) O2 Delivery Device Sodium (136-145) mEq/L Potassium (3.5-5.1) mEq/L Chloride (98-107) mEq/L Carbon Dioxide (21-32) mEq/L Anion Gap (5-15) BUN (7-18) mg/dL Creatinine (0.55-1.02) mg/dL Est Cr Clr Drug Dosing Estimated GFR (MDRD) (>60) mL/min BUN/Creatinine Ratio (14-18) Glucose (70-99) mg/dL POC Glucose 88 (70-99) mg/dL Lactic Acid (0.4-2.0) mmol/L Calcium (8.5-10.1) mg/dL Magnesium (1.8-2.4) mg/dL Total Bilirubin (0.2-1.0) mg/dL GGT (5-55) U/L AST (15-37) U/L ALT (14-59) U/L Alkaline Phosphatase (46-116) U/L Ammonia (11-32) umol/L Creatine Kinase (26-192) U/L Troponin I (0.00-0.056) ng/mL C-Reactive Protein (<1.0) mg/dL NT-Pro-B Natriuret Pep (0-125) pg/mL Total Protein (6.4-8.2) g/dl Albumin (3.4-5.0) g/dl Globulin gm/dL Albumin/Globulin Ratio (1-2) Lipase (73-393) U/L HCG, Qual (NEGATIVE) Urine Color (Yellow) Urine Appearance (Clear) Urine pH (5.0-8.0) Ur Specific [place] (1.005-1.030) Urine Protein (Negative) Urine Glucose (UA) (Negative) Urine Ketones (Negative) Urine Occult Blood (Negative) Urine Nitrite (Negative) Urine Bilirubin (Negative) Urine Urobilinogen (0.2-1.0) Ur Leukocyte Esterase (Negative) U Hyaline Cast (Auto) (0-5) /lpf Urine RBC (0-5) /hpf Urine WBC (0-5) /hpf Ur Squamous Epith Cells (0-5) /hpf Urine Bacteria (FEW) /hpf Urine Mucus (FEW) /hpf Urine Opiates Screen (KNDPIC=941) Ur Buprenorphine Scrn (CUTOFF=10) Ur Oxycodone Screen (KKL7RJ=420) Urine Methadone Screen (TWRLDY=011) Ur Propoxyphene Screen (GITYQU=954) Ur Barbiturates Screen (RJJDDR=562) Ur Tricyclics Screen (BIPIZG=598) Ur Phencyclidine Scrn (CUTOFF=25) Ur Amphetamine Screen (DSSMNV=871) U Methamphetamines Scrn (ZSXVPD=382) U Benzodiazepines Scrn (FUGEZE=884) U Cocaine Metab Screen (KIBQZD=242) U Marijuana (THC) Screen (CUTOFF=50) Ethyl Alcohol (0.00) gm% Ketones (0.0-0.3) mM SARS-CoV-2 RNA (ROZINA) (NEGATIVE) Meds: Medications Generic Name Dose Route Start Last Admin Trade Name Freq PRN Reason Stop Dose Admin Dextrose/Sodium Chloride 1,000 mls @ 500 mls/hr 01/08/21 14:00 01/08/21 14:07 Dextrose 5%-Normal Saline IV 500 mls/hr ASDIRECTED VALDO Infusion Sodium Chloride 1,000 mls @ 999 mls/hr 01/08/21 15:30 01/08/21 15:40 Normal Saline IV 999 mls/hr ASDIRECTED VALDO Administration Sodium Chloride 1,000 mls @ 999 mls/hr 01/08/21 17:45 01/08/21 17:46 Normal Saline IV 999 mls/hr ASDIRECTED VALDO Administration Sodium Chloride 1,000 mls @ 150 mls/hr 01/08/21 19:00 01/08/21 18:56 Normal Saline IV 150 mls/hr ASDIRECTED VALDO Administration Dextrose/Sodium Chloride 1,000 mls @ 999 mls/hr 01/08/21 19:15 01/08/21 19:18 Dextrose 5%-Normal Saline IV 999 mls/hr ASDIRECTED VALDO Administration Discontinued Medications Generic Name Dose Route Start Last Admin Trade Name Bin PRN Reason Stop Dose Admin Potassium Chloride 10 meq/ 100 mls @ 100 mls/hr 01/08/21 15:30 01/08/21 17:33 Premix IV 01/08/21 17:29 100 mls/hr Q1H VALDO Administration Ceftriaxone Sodium 2 gm/ 100 mls @ 200 mls/hr 01/08/21 15:26 01/08/21 15:40 Sodium Chloride IV 01/08/21 15:55 200 mls/hr ONETIME ONE Administration Lorazepam 1 mg 01/08/21 16:39 01/08/21 17:01 Lorazepam 2 Mg/Ml Sdv IV 01/08/21 16:40 1 mg ONETIME ONE Administration Lorazepam 1 mg 01/08/21 18:40 01/08/21 18:52 Lorazepam 2 Mg/Ml Sdv IVPUSH 01/08/21 18:41 1 mg ONETIME ONE Administration Thiamine HCl 100 mg 01/08/21 16:42 01/08/21 17:01 Thiamine 200 Mg/2 Ml Mdv IVPUSH 01/08/21 16:43 100 mg ONETIME ONE Administration - Radiology Interpretation Free Text/Narrative:: 25-year-old female is dropped off in the emergency department by her brother reportedly. Apparently she has become lethargic and unresponsive over the last 24 hours. She usually gets up every hour to small given all night long but has not gotten up all night. She has a history of heavy alcohol use but is never been diagnosed with cirrhosis of liver. Upon initial evaluation in the ED she has a very sallow slightly cyanotic color to her skin. She appears confused and can answer the occasional question with a one-word answer. She prefers to lie with her eyes closed. There is no disconjugate gaze pupils are equal and respond to light with no sign of opioid toxicity. Lungs were clear with O2 sats 100% room air. Heart was sinus tachycardia 135 and her tongue is very dry and. She appears dehydrated. Her liver is palpable 4 fingerbreadths below the right costal margin suspicious for cirrhosis of the liver. No obvious ascites. She has features suggestive of Dietrich syndrome. Plan IV will be D5 normal saline at 500 mils an hour. Labs to be done including serum ammonia lactic acid and ketones. Once I know for sure she is not we will CT her abdomen and pelvis. When chest x-ray will be done with cold coronavirus testing. She appears she will need hospitalization. - Re-Assessments/Exams Free Text/Narrative Re-Assessment/Exam: 01/08/21 14:51 White count is elevated at 15.56 with a left shift of 77.1% neutrophils. Hemoglobin is 15.3 with hematocrit of 44.4. MCV is elevated 103.5. Platelet count is 390,000 PT is 12.3 with an INR elevated at 1.15 PTT is 22.6. ABGs revealed a pH of 7.47 with a PCO2 low at 24.3 and a PO2 low at 78.0 with a bicarb of 17.6 which is low as well. O2 sats were 96.1% on room air. Sodium 136 with a potassium slightly low at 3.3. Chloride is low at 93. Bicarb is 22 with an anion gap of 24.3. BUN is 26 with a creatinine of 1.0 and a GFR greater than 60 BUN/creatinine ratio is elevated at 26.0 compatible with volume depletion. Glucose 139 bedside glucose was 132. Calcium is 9.0 magnesium is 2.4 bilirubin elevated at 4.9 with a GGT elevated at 494 AST elevated at 371 ALT 256. Alkaline phosphatase is elevated at 156. Troponin I is 0.026. C- reactive protein is 1.9. BNP is 847. Total protein is 6.9 albumin fraction is low at 3.1. Lipase is 110 qualitative hCG is negative. Blood alcohol is 0.00 chest x-ray done portably is completely normal with normal mediastinum and cardiac silhouette. Lungs are clear with no infiltrates no pneumothorax no pleural effusion. We will proceed with CT of the abdomen and pelvis as clinically she has an enlarged liver and query small amount of ascites. 01/08/21 15:23 Lactic acid is markedly elevated at 10.7. Urine drug screen obtained from catheterized urine is completely negative. Serum ketones elevated at 2.46. Serum ammonia is 15. Is going to require a lot of IV fluids to reduce her lactic acid. Sitting whether she had a seizure to precipitate the markedly elevated lactic acid. Consideration of sepsis as a cause as well. 01/08/21 15:44 She is more alert and answering questions. She indicates to the nurse that she usually drinks [place] whiskey approximately 750 mils daily. She believes her last drink was greater than 24 hours ago. She states she laid on the floor for about 10 hours before anybody found her. Is unclear if she could have had a seizure from alcohol withdrawal which would have been created the lactic acidosis. 01/08/21 16:41 C-reactive protein is 1.9. Total CPK has not yet been documented. The urine is or dark orange in color with 1+ protein urea 1+ ketones 3+ bilirubin and urobilinogen greater than 8.0 leukocyte esterase -10-20 hyaline casts 0-5 red blood cells 5-10 white blood cells and many bacteria identified. Urine culture will be ordered. Nurses report the patient seems to be hallucinating at this time she pulled out her IV. Repeat IV has been started. Will be given Ativan 1 mg IV and Thiamine 100 mg IV. She has yet to go to CT suite for CT head and abdomen pelvis. 01/08/21 17:20 CT of the brain has been completed. Brain appears normal with no hemorrhage and unremarkable white matter. No mass-effect identified no ventriculomegaly. Visualized sinuses are unremarkable with no air-fluid levels. Mastoid air cells are well aerated. Bones and joints are unremarkable with no acute fractures. Soft tissues are unremarkable. CT of the abdomen and pelvis is also been performed with IV contrast. There is marked enlargement of the liver. There is diffusely decreased hepatic parenchymal densities consistent with severe hepatic steatosis. The gallbladder is normal. There is no evidence of biliary ductal dilatation. The pancreas is normal. The spleen is normal. The adrenal glands are normal. The ureters are normal. Stomach and bowel there is suggestion of very mild colonic wall thickening. There is minimal to no surrounding inflammatory changes however. His questional abnormality involves the entire colon from the cecum to the sigmoid. No specific small bowel abnormality is seen. Note nonspecific nonobstructive intestinal gas pattern present. Appendix is normal. Intraperitoneal space shows a trace of free fluid in the dependent abdomen there is no free intraperitoneal air. The vasculature is normal there is no aortic aneurysm. There is no adenopathy. There is a small amount of intraluminal gas in the bladder suggestive of recent Instrumentation or catheterization. The the uterus is normal. No adnexal masses or other abnormalities identified. Bone and joints show nothing acute. Soft tissues there is no soft tissue abnormality noted. 01/08/21 18:45: She once again appears to be hallucinating. Her CIWA score is 13 we will repeat Ativan 1 mg IV. Going to have a Tineo catheter placed for better monitoring purposes for intake and output since she is incontinent of urine. Blood pressure is currently 112/63 with O2 sats of 97% room air Free Text/Narrative Re-Assessment/Exam: 01/08/21 19:00 I have spoken with Dr. Kimani Apodaca who is currently taking call for hospitalist for the next 12 hours. He will come in and see this young lady with a view to admission to the intensive care unit for alcohol detoxification as this appears to be her major complaint. She had a severe lactic acidosis upon arrival and I am awaiting the lactic acid repeat value. 01/08/21 19:05 Second lactic acid has returned at 8.3 having come down very little. Current IV is normal saline running at 150 mils per hour. I will have a blood sugar rechecked and then plan will be to give her more volume in an effort to improve the lactic acidosis. I had the nurses recheck her blood sugar and it is currently 88. Therefore normal saline drip will be discontinued and be replaced with D5 normal saline at open. Plan will be to recheck CMP and l actic acid in 3 hours time. Departure - Departure Time of Disposition: 20:15 Disposition: Admitted As Inpatient 64 Condition: Serious Clinical Impression: Altered level of consciousness, Neutrophilic leukocytosis, Lactic acidosis, Ketoacidosis, Alcoholism, Hepatic steatosis, Mild congestive heart failure, Volume depletion Alcohol withdrawal syndrome Qualifiers: Complication of substance-induced condition: with delirium Qualified Code(s): F10.231 - Alcohol dependence with withdrawal delirium - Discharge Information *PRESCRIPTION DRUG MONITORING PROGRAM REVIEWED*: Not Applicable *COPY OF PRESCRIPTION DRUG MONITORING REPORT IN PATIENT STEPHEN: Not Applicable Referrals: PCP,None [Primary Care Provider] - Forms: ED Department Discharge Sepsis Event Note (ED) - Focused Exam Vital Signs: Vital Signs Temp Pulse Resp BP Pulse Ox 01/08/21 13:56 36.7 C 130 H 18 94/33 L 100 - My Orders Last 24 Hours: My Active Orders 01/08/21 13:47 Chest 1V Frontal [CR] Stat Blood Culture x2 Reflex Set [OM.PC] Stat 01/08/21 13:50 CULTURE URINE [MREF] Stat 01/08/21 14:00 Dextrose 5%-0.9% NaCl [Dextrose 5%-Normal Saline] 1,000 ml IV ASDIRECTED 01/08/21 14:05 BLOOD CULTURE [MREF] Stat 01/08/21 14:16 BLOOD CULTURE [MREF] Stat 01/08/21 14:53 Abdomen Pelvis w Cont [CT] Stat 01/08/21 14:55 Head wo Cont [CT] Stat 01/08/21 15:30 Sodium Chloride 0.9% [Normal Saline] 1,000 ml IV ASDIRECTED 01/08/21 17:45 Sodium Chloride 0.9% [Normal Saline] 1,000 ml IV ASDIRECTED 01/08/21 18:46 REFLEX LACTIC ACID YES OR NO [CHEM] Routine 01/08/21 19:00 Sodium Chloride 0.9% [Normal Saline] 1,000 ml IV ASDIRECTED 01/08/21 19:05 Urinary Catheter Assessment [RC] ASDIRECTED 01/08/21 19:15 Insert Tineo Catheter [Insert Urinary Catheter] [OM.PC] Q24H Dextrose 5%-0.9% NaCl [Dextrose 5%-Normal Saline] 1,000 ml IV ASDIRECTED 01/08/21 19:30 Insert Tineo Catheter [Insert Urinary Catheter] [OM.PC] Q24H 01/08/21 20:13 Admission Status [Patient Status] [ADT] Routine - Assessment/Plan Last 24 Hours: My Active Orders 01/08/21 13:47 Chest 1V Frontal [CR] Stat Blood Culture x2 Reflex Set [OM.PC] Stat 01/08/21 13:50 CULTURE URINE [MREF] Stat 01/08/21 14:00 Dextrose 5%-0.9% NaCl [Dextrose 5%-Normal Saline] 1,000 ml IV ASDIRECTED 01/08/21 14:05 BLOOD CULTURE [MREF] Stat 01/08/21 14:16 BLOOD CULTURE [MREF] Stat 01/08/21 14:53 Abdomen Pelvis w Cont [CT] Stat 01/08/21 14:55 Head wo Cont [CT] Stat 01/08/21 15:30 Sodium Chloride 0.9% [Normal Saline] 1,000 ml IV ASDIRECTED 01/08/21 17:45 Sodium Chloride 0.9% [Normal Saline] 1,000 ml IV ASDIRECTED 01/08/21 18:46 REFLEX LACTIC ACID YES OR NO [CHEM] Routine 01/08/21 19:00 Sodium Chloride 0.9% [Normal Saline] 1,000 ml IV ASDIRECTED 01/08/21 19:05 Urinary Catheter Assessment [RC] ASDIRECTED 01/08/21 19:15 Insert Tineo Catheter [Insert Urinary Catheter] [OM.PC] Q24H Dextrose 5%-0.9% NaCl [Dextrose 5%-Normal Saline] 1,000 ml IV ASDIRECTED 01/08/21 19:30 Insert Tineo Catheter [Insert Urinary Catheter] [OM.PC] Q24H 01/08/21 20:13 Admission Status [Patient Status] [ADT] Routine
[2021-01-08] MEDS ORDERED: Dextrose 5%-0.9% NaCl 1,000 ML IV SCH ×2 (14:00→19:15)
[2021-01-08] MEDS ORDERED: cefTRIAXone 2 GM in Sodium Chloride 0.9% 100 ML IV ONE (15:26)
[2021-01-08] MEDS ORDERED: Sodium Chloride 0.9% 1,000 ML IV SCH ×3 (15:30→19:00)
[2021-01-08] MEDS: Potassium Chloride 10 MEQ in Premix Bag 1 BAG IV SCH ×4 (16:11→22:55)
[2021-01-08] MEDS ORDERED: LORazepam 2 MG/ML SDV IV ONE (16:39)
[2021-01-08] MEDS ORDERED: Thiamine 200 MG/2 ML MDV IVPUSH ONE (16:42)
[2021-01-08] MEDS ORDERED: LORazepam 2 MG/ML SDV IVPUSH ONE (18:40)
--- NOTE | 2021-01-08 20:04 | PCM.HP.2 ---
H&P History of Present Illness - General Date of Service: 01/08/21 Admit Problem/Dx: etoh abuse /unresponsive. Source of Information: Provider, RN Notes Reviewed History Limitations: Reports: Altered Mental Status, Intoxication, Physical Impairment - History of Present Illness Initial Comments - Free Text/Narative: 25 yeqr old female admitted with altered state of conc. with slurred words and impairment on exam. recently given ativan for hallucinations (visual). able to give hx to e.r . crew earlier. she drinks 500-750 cc whiskey day and has been out and was found by brother because she usually does not sleep that long. usually gets up every hour to smoke and he found her unresposive this am and she figuired she may have been out 10 hours words slurred and affect drunken and unable to walk well by herself even with assistance. etoh level zero however and possible seizure suggested bu lactic acidosis and length of time unresponsive. ct scan of head done and normal . ct scan of abd pelvis done and shows liver enlarged and steatohepatitis,no pancreatitis and no dilation or def. cholestasis. moves all extremities and follows simple commands and hearing and vision appear okay .answers yes no questions and has been incontinant of stoo and bladder and meredith placed for i//o measurement. mild bruises seen on anterior and lateral shins. she was given i.v fluid on impression of acute etoh overdose. seizures/metabolic (liver failure) tb 4.7 and all lfts moderately elevated given 3 litters in e.r. and lactic acid initially 10 decreased only to 8 range. search for possible sepsis and cultures sent for urine and blood. Rocephin started. labs show normal cbc and hgn with normal platelets and macrocytic indices.and some urine output and meredith cath placed. urinalysis pending. hx fragmented and filled in by brother. hx of chronic etohism but last seen this e.r 3 years ago and previous episode of hemoptysis/hematochezia. denies any hx of viral hep or liver or pancreatic issues. no transfusions and no jaundice and is eating. denies any seizures and notes shakes if quits drinking but occasionally does. denies fever chills falls head injuries and or other injuries. denies melana and or brbr. ros very limited and now sleeping again and difficult to get to answer questions. Onset of Symptoms: Reports: Today Duration of Symptoms: Reports: Hour(s): (10) Associated Symptoms: Reports: Confusion, Weakness - Related Data Allergies/Adverse Reactions: Allergies Allergy/AdvReac Type Severity Reaction Status Date / Time No Known Allergies Allergy Verified 01/08/21 14:00 Home Medications: Home Meds . [Unable to Verify Home Med List] 01/08/21 [History] Past Medical History - Past Health History Medical/Surgical History: Denies Medical/Surgical History Neurological History: Reports: Migraines Psychiatric History: Reports: Addiction (Reportedly has an addiction to alcohol with excessive alcohol use according to her brother), Anxiety, Depression Social & Family History - Tobacco Use Tobacco Use Status *Q: Unknown Ever Used Tobacco - Caffeine Use Caffeine Use: Reports: Soda - Alcohol Use Days Per Week of Alcohol Use: 7 Number of Drinks Per Day: 6 Total Drinks Per Week: 42 - Recreational Drug Use Recreational Drug Use: No Recreational Drug Type: Reports: Other (see below) Other Recreational Drug Type: REFUSED TO ANSWER - Living Situation & Occupation Living situation: Reports: Single 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) H&P Review of Systems - Review of Systems: Review Of Systems: Unable To Obtain Reason Not Obtained: sleeping currently General: Reports: No Symptoms HEENT: Reports: No Symptoms Pulmonary: Reports: No Symptoms Cardiovascular: Reports: No Symptoms Gastrointestinal: Reports: No Symptoms Genitourinary: Reports: No Symptoms Musculoskeletal: Reports: No Symptoms Skin: Reports: No Symptoms Psychiatric: Reports: No Symptoms Neurological: Reports: No Symptoms Hematologic/Lymphatic: Reports: No Symptoms Immunologic: Reports: No Symptoms Exam - Exam Exam: See Below Reason Not Obtained: patient drowsy and not responding to questions in e.r. but pr - Vital Signs Vital Signs: Last Vital Signs Temp 36.7 C 01/08/21 13:56 Pulse 130 H 01/08/21 13:56 Resp 18 01/08/21 13:56 BP 94/33 L 01/08/21 13:56 Pulse Ox 100 01/08/21 13:56 Weight: 54.431 kg - Exam General: Alert, Oriented, 4 HEENT: PERRLA, Hearing Intact, Mucosa Moist & [place], Nares Patent, Normal Nasal Septum, Posterior Pharynx Clear, Conjunctiva Clear, EOMI, EACs Clear, TMs Clear Neck: Supple, Trachea Midline, 2 Lungs: Clear to Auscultation, Normal Respiratory Effort Cardiovascular: Regular Rate, Regular Rhythm GI/Abdominal Exam: Normal Bowel Sounds, Soft, Non-Tender, No Organomegaly, No Distention, No Abnormal Bruit, No Mass, Pelvis Stable (Female) Exam: Normal External Exam, Normal Speculum Exam, Normal Bimanual Exam Rectal (Female) Exam: Normal Exam, Normal Rectal Tone Back Exam: Normal Inspection, Full Range of Motion, NT Extremities: Normal Inspection, Normal Range of Motion, Non-Tender, No Pedal Edema, Normal Capillary Refill Skin: Warm, Dry, Intact Neurological: Cranial Nerves Intact, Reflexes Equal Bilateral Neuro Extensive - Mental Status: Alert, Oriented x3, Normal Mood/Affect, Normal Cognition Neuro Extensive - Motor, Sensory, Reflexes: CN II-XII Intact, Normal Gait, Normal Reflexes Psychiatric: Alert, Normal Affect, Normal Mood, Hallucinations, Withdrawal Symptoms - Patient Data Lab Results Last 24 hrs: Laboratory Results - last 24 hr 01/08/21 01/08/21 01/08/21 Range/Units 09:14 13:45 13:46 WBC (3.98-10.04) K/mm3 RBC (3.98-5.22) M/mm3 Hgb (11.2-15.7) gm/dl Hct (34.1-44.9) % MCV (79.4-94.8) fl MCH (25.6-32.2) pg MCHC (32.2-35.5) g/dl RDW Std Deviation (36.4-46.3) fL Plt Count (182-369) K/mm3 MPV (9.4-12.3) fl Neut % (Auto) (34.0-71.1) % Lymph % (Auto) (19.3-51.7) % [place] % (Auto) (4.7-12.5) % Eos % (Auto) (0.7-5.8) Baso % (Auto) (0.1-1.2) % Neut # (Auto) (1.56-6.13) K/mm3 Lymph # (Auto) (1.18-3.74) K/mm3 [place] # (Auto) (0.24-0.36) K/mm3 Eos # (Auto) (0.04-0.36) K/mm3 Baso # (Auto) (0.01-0.08) K/mm3 Manual Slide Review PT (9.7-12.0) SECONDS INR APTT (21.7-31.4) SECONDS Puncture Site Lt radial ABG pH 7.47 H (7.35-7.45) ABG pCO2 24.3 L (35.0-45.0) mmHg ABG pO2 78.0 L (80.0-100.0) mmHg ABG HCO3 17.6 L (22.0-26.0) meq/L ABG O2 Saturation 96.1 (96.0-97.0) % ABG Base Excess -4.1 L (-2-2.0) O2 Delivery Device Room air Sodium (136-145) mEq/L Potassium (3.5-5.1) mEq/L Chloride (98-107) mEq/L Carbon Dioxide (21-32) mEq/L Anion Gap (5-15) BUN (7-18) mg/dL Creatinine (0.55-1.02) mg/dL Est Cr Clr Drug Dosing Estimated GFR (MDRD) (>60) mL/min BUN/Creatinine Ratio (14-18) Glucose (70-99) mg/dL POC Glucose 132 H (70-99) mg/dL Lactic Acid (0.4-2.0) mmol/L Calcium (8.5-10.1) mg/dL Magnesium (1.8-2.4) mg/dL Total Bilirubin (0.2-1.0) mg/dL GGT (5-55) U/L AST (15-37) U/L ALT (14-59) U/L Alkaline Phosphatase (46-116) U/L Ammonia (11-32) umol/L Creatine Kinase 149 (26-192) U/L Troponin I (0.00-0.056) ng/mL C-Reactive Protein (<1.0) mg/dL NT-Pro-B Natriuret Pep (0-125) pg/mL Total Protein (6.4-8.2) g/dl Albumin (3.4-5.0) g/dl Globulin gm/dL Albumin/Globulin Ratio (1-2) Lipase (73-393) U/L HCG, Qual (NEGATIVE) Urine Color (Yellow) Urine Appearance (Clear) Urine pH (5.0-8.0) Ur Specific [place] (1.005-1.030) Urine Protein (Negative) Urine Glucose (UA) (Negative) Urine Ketones (Negative) Urine Occult Blood (Negative) Urine Nitrite (Negative) Urine Bilirubin (Negative) Urine Urobilinogen (0.2-1.0) Ur Leukocyte Esterase (Negative) U Hyaline Cast (Auto) (0-5) /lpf Urine RBC (0-5) /hpf Urine WBC (0-5) /hpf Ur Squamous Epith Cells (0-5) /hpf Urine Bacteria (FEW) /hpf Urine Mucus (FEW) /hpf Urine Opiates Screen (JVMWJJ=377) Ur Buprenorphine Scrn (CUTOFF=10) Ur Oxycodone Screen (FAT3LY=230) Urine Methadone Screen (OMVNYF=171) Ur Propoxyphene Screen (SUHTQP=867) Ur Barbiturates Screen (DGPNQW=757) Ur Tricyclics Screen (PBZTRU=255) Ur Phencyclidine Scrn (CUTOFF=25) Ur Amphetamine Screen (YDGDAV=409) U Methamphetamines Scrn (HBVRJF=854) U Benzodiazepines Scrn (GRISIH=969) U Cocaine Metab Screen (ESTOPL=104) U Marijuana (THC) Screen (CUTOFF=50) Ethyl Alcohol (0.00) gm% Ketones (0.0-0.3) mM SARS-CoV-2 RNA (ROZINA) (NEGATIVE) 01/08/21 01/08/21 01/08/21 Range/Units 13:46 13:47 13:50 WBC (3.98-10.04) K/mm3 RBC (3.98-5.22) M/mm3 Hgb (11.2-15.7) gm/dl Hct (34.1-44.9) % MCV (79.4-94.8) fl MCH (25.6-32.2) pg MCHC (32.2-35.5) g/dl RDW Std Deviation (36.4-46.3) fL Plt Count (182-369) K/mm3 MPV (9.4-12.3) fl Neut % (Auto) (34.0-71.1) % Lymph % (Auto) (19.3-51.7) % [place] % (Auto) (4.7-12.5) % Eos % (Auto) (0.7-5.8) Baso % (Auto) (0.1-1.2) % Neut # (Auto) (1.56-6.13) K/mm3 Lymph # (Auto) (1.18-3.74) K/mm3 [place] # (Auto) (0.24-0.36) K/mm3 Eos # (Auto) (0.04-0.36) K/mm3 Baso # (Auto) (0.01-0.08) K/mm3 Manual Slide Review PT 12.3 H (9.7-12.0) SECONDS INR 1.15 APTT 22.6 (21.7-31.4) SECONDS Puncture Site ABG pH (7.35-7.45) ABG pCO2 (35.0-45.0) mmHg ABG pO2 (80.0-100.0) mmHg ABG HCO3 (22.0-26.0) meq/L ABG O2 Saturation (96.0-97.0) % ABG Base Excess (-2-2.0) O2 Delivery Device Sodium (136-145) mEq/L Potassium (3.5-5.1) mEq/L Chloride (98-107) mEq/L Carbon Dioxide (21-32) mEq/L Anion Gap (5-15) BUN (7-18) mg/dL Creatinine (0.55-1.02) mg/dL Est Cr Clr Drug Dosing Estimated GFR (MDRD) (>60) mL/min BUN/Creatinine Ratio (14-18) Glucose (70-99) mg/dL POC Glucose (70-99) mg/dL Lactic Acid (0.4-2.0) mmol/L Calcium (8.5-10.1) mg/dL Magnesium (1.8-2.4) mg/dL Total Bilirubin (0.2-1.0) mg/dL GGT (5-55) U/L AST (15-37) U/L ALT (14-59) U/L Alkaline Phosphatase (46-116) U/L Ammonia (11-32) umol/L Creatine Kinase (26-192) U/L Troponin I (0.00-0.056) ng/mL C-Reactive Protein (<1.0) mg/dL NT-Pro-B Natriuret Pep (0-125) pg/mL Total Protein (6.4-8.2) g/dl Albumin (3.4-5.0) g/dl Globulin gm/dL Albumin/Globulin Ratio (1-2) Lipase (73-393) U/L HCG, Qual (NEGATIVE) Urine Color (Yellow) Urine Appearance (Clear) Urine pH (5.0-8.0) Ur Specific [place] (1.005-1.030) Urine Protein (Negative) Urine Glucose (UA) (Negative) Urine Ketones (Negative) Urine Occult Blood (Negative) Urine Nitrite (Negative) Urine Bilirubin (Negative) Urine Urobilinogen (0.2-1.0) Ur Leukocyte Esterase (Negative) U Hyaline Cast (Auto) (0-5) /lpf Urine RBC (0-5) /hpf Urine WBC (0-5) /hpf Ur Squamous Epith Cells (0-5) /hpf Urine Bacteria (FEW) /hpf Urine Mucus (FEW) /hpf Urine Opiates Screen (GSORTQ=560) Ur Buprenorphine Scrn (CUTOFF=10) Ur Oxycodone Screen (UNB9BC=951) Urine Methadone Screen (ROPDBH=650) Ur Propoxyphene Screen (NVVPHT=998) Ur Barbiturates Screen (BCOWSO=613) Ur Tricyclics Screen (KOMTIY=368) Ur Phencyclidine Scrn (CUTOFF=25) Ur Amphetamine Screen (GZKHLK=434) U Methamphetamines Scrn (RLKUJD=100) U Benzodiazepines Scrn (TQUIKQ=178) U Cocaine Metab Screen (UVNJVV=584) U Marijuana (THC) Screen (CUTOFF=50) Ethyl Alcohol (0.00) gm% Ketones 2.46 (0.0-0.3) mM SARS-CoV-2 RNA (ROZINA) Negative (NEGATIVE) 01/08/21 01/08/21 01/08/21 Range/Units 13:50 13:55 14:06 WBC 15.56 H (3.98-10.04) K/mm3 RBC 4.29 (3.98-5.22) M/mm3 Hgb 15.3 (11.2-15.7) gm/dl Hct 44.4 (34.1-44.9) % MCV 103.5 H D (79.4-94.8) fl MCH 35.7 H (25.6-32.2) pg MCHC 34.5 (32.2-35.5) g/dl RDW Std Deviation 55.1 H (36.4-46.3) fL Plt Count 390 H D (182-369) K/mm3 MPV 11.2 (9.4-12.3) fl Neut % (Auto) 77.1 H (34.0-71.1) % Lymph % (Auto) 13.6 L (19.3-51.7) % [place] % (Auto) 7.3 (4.7-12.5) % Eos % (Auto) 0.2 L (0.7-5.8) Baso % (Auto) 0.9 (0.1-1.2) % Neut # (Auto) 11.99 H (1.56-6.13) K/mm3 Lymph # (Auto) 2.12 (1.18-3.74) K/mm3 [place] # (Auto) 1.14 H (0.24-0.36) K/mm3 Eos # (Auto) 0.03 L (0.04-0.36) K/mm3 Baso # (Auto) 0.14 H (0.01-0.08) K/mm3 Manual Slide Review Abnormal smear PT (9.7-12.0) SECONDS INR APTT (21.7-31.4) SECONDS Puncture Site ABG pH (7.35-7.45) ABG pCO2 (35.0-45.0) mmHg ABG pO2 (80.0-100.0) mmHg ABG HCO3 (22.0-26.0) meq/L ABG O2 Saturation (96.0-97.0) % ABG Base Excess (-2-2.0) O2 Delivery Device Sodium (136-145) mEq/L Potassium (3.5-5.1) mEq/L Chloride (98-107) mEq/L Carbon Dioxide (21-32) mEq/L Anion Gap (5-15) BUN (7-18) mg/dL Creatinine (0.55-1.02) mg/dL Est Cr Clr Drug Dosing Estimated GFR (MDRD) (>60) mL/min BUN/Creatinine Ratio (14-18) Glucose (70-99) mg/dL POC Glucose (70-99) mg/dL Lactic Acid (0.4-2.0) mmol/L Calcium (8.5-10.1) mg/dL Magnesium (1.8-2.4) mg/dL Total Bilirubin (0.2-1.0) mg/dL GGT (5-55) U/L AST (15-37) U/L ALT (14-59) U/L Alkaline Phosphatase (46-116) U/L Ammonia (11-32) umol/L Creatine Kinase (26-192) U/L Troponin I (0.00-0.056) ng/mL C-Reactive Protein (<1.0) mg/dL NT-Pro-B Natriuret Pep (0-125) pg/mL Total Protein (6.4-8.2) g/dl Albumin (3.4-5.0) g/dl Globulin gm/dL Albumin/Globulin Ratio (1-2) Lipase (73-393) U/L HCG, Qual (NEGATIVE) Urine Color [place] H (Yellow) Urine Appearance Cloudy H (Clear) Urine pH 5.5 (5.0-8.0) Ur Specific [place] 1.025 (1.005-1.030) Urine Protein 1+ H (Negative) Urine Glucose (UA) Negative (Negative) Urine Ketones 1+ H (Negative) Urine Occult Blood Negative (Negative) Urine Nitrite Negative (Negative) Urine Bilirubin 3+ H (Negative) Urine Urobilinogen >=8.0 H (0.2-1.0) Ur Leukocyte Esterase Negative (Negative) U Hyaline Cast (Auto) 10-20 H (0-5) /lpf Urine RBC 0-5 (0-5) /hpf Urine WBC 5-10 H (0-5) /hpf Ur Squamous Epith Cells 0-5 (0-5) /hpf Urine Bacteria Many H (FEW) /hpf Urine Mucus Few (FEW) /hpf Urine Opiates Screen Negative (ZBKRZR=809) Ur Buprenorphine Scrn Negative (CUTOFF=10) Ur Oxycodone Screen Negative (YRL6DX=821) Urine Methadone Screen Negative (TEIJRQ=210) Ur Propoxyphene Screen Negative (YQSZOP=716) Ur Barbiturates Screen Negative (JQDQLK=743) Ur Tricyclics Screen Negative (COPHRF=760) Ur Phencyclidine Scrn Negative (CUTOFF=25) Ur Amphetamine Screen Negative (IMOCJB=870) U Methamphetamines Scrn Negative (LIUUOX=206) U Benzodiazepines Scrn Negative (UMLPKT=457) U Cocaine Metab Screen Negative (WIUVMN=289) U Marijuana (THC) Screen Negative (CUTOFF=50) Ethyl Alcohol (0.00) gm% Ketones (0.0-0.3) mM SARS-CoV-2 RNA (ROZINA) (NEGATIVE) 01/08/21 01/08/21 01/08/21 Range/Units 14:10 14:10 14:10 WBC (3.98-10.04) K/mm3 RBC (3.98-5.22) M/mm3 Hgb (11.2-15.7) gm/dl Hct (34.1-44.9) % MCV (79.4-94.8) fl MCH (25.6-32.2) pg MCHC (32.2-35.5) g/dl RDW Std Deviation (36.4-46.3) fL Plt Count (182-369) K/mm3 MPV (9.4-12.3) fl Neut % (Auto) (34.0-71.1) % Lymph % (Auto) (19.3-51.7) % [place] % (Auto) (4.7-12.5) % Eos % (Auto) (0.7-5.8) Baso % (Auto) (0.1-1.2) % Neut # (Auto) (1.56-6.13) K/mm3 Lymph # (Auto) (1.18-3.74) K/mm3 [place] # (Auto) (0.24-0.36) K/mm3 Eos # (Auto) (0.04-0.36) K/mm3 Baso # (Auto) (0.01-0.08) K/mm3 Manual Slide Review PT (9.7-12.0) SECONDS INR APTT (21.7-31.4) SECONDS Puncture Site ABG pH (7.35-7.45) ABG pCO2 (35.0-45.0) mmHg ABG pO2 (80.0-100.0) mmHg ABG HCO3 (22.0-26.0) meq/L ABG O2 Saturation (96.0-97.0) % ABG Base Excess (-2-2.0) O2 Delivery Device Sodium 136 (136-145) mEq/L Potassium 3.3 L (3.5-5.1) mEq/L Chloride 93 L D (98-107) mEq/L Carbon Dioxide 22 (21-32) mEq/L Anion Gap 24.3 H (5-15) BUN 26 H (7-18) mg/dL Creatinine 1.0 (0.55-1.02) mg/dL Est Cr Clr Drug Dosing TNP Estimated GFR (MDRD) > 60 (>60) mL/min BUN/Creatinine Ratio 26.0 H (14-18) Glucose 139 H (70-99) mg/dL POC Glucose (70-99) mg/dL Lactic Acid (0.4-2.0) mmol/L Calcium 9.0 (8.5-10.1) mg/dL Magnesium 2.4 (1.8-2.4) mg/dL Total Bilirubin 4.9 H (0.2-1.0) mg/dL GGT 494 H (5-55) U/L AST 371 H (15-37) U/L ALT 256 H (14-59) U/L Alkaline Phosphatase 156 H (46-116) U/L Ammonia (11-32) umol/L Creatine Kinase (26-192) U/L Troponin I 0.026 (0.00-0.056) ng/mL C-Reactive Protein 1.9 H* (<1.0) mg/dL NT-Pro-B Natriuret Pep 847 H (0-125) pg/mL Total Protein 6.9 (6.4-8.2) g/dl Albumin 3.1 L (3.4-5.0) g/dl Globulin 3.8 gm/dL Albumin/Globulin Ratio 0.8 L (1-2) Lipase 110 (73-393) U/L HCG, Qual Negative (NEGATIVE) Urine Color (Yellow) Urine Appearance (Clear) Urine pH (5.0-8.0) Ur Specific [place] (1.005-1.030) Urine Protein (Negative) Urine Glucose (UA) (Negative) Urine Ketones (Negative) Urine Occult Blood (Negative) Urine Nitrite (Negative) Urine Bilirubin (Negative) Urine Urobilinogen (0.2-1.0) Ur Leukocyte Esterase (Negative) U Hyaline Cast (Auto) (0-5) /lpf Urine RBC (0-5) /hpf Urine WBC (0-5) /hpf Ur Squamous Epith Cells (0-5) /hpf Urine Bacteria (FEW) /hpf Urine Mucus (FEW) /hpf Urine Opiates Screen (ZWMCHJ=460) Ur Buprenorphine Scrn (CUTOFF=10) Ur Oxycodone Screen (JJO9JC=810) Urine Methadone Screen (IQXQNK=138) Ur Propoxyphene Screen (ITBGKV=047) Ur Barbiturates Screen (JGFCES=265) Ur Tricyclics Screen (ZYPXPP=410) Ur Phencyclidine Scrn (CUTOFF=25) Ur Amphetamine Screen (FFBFHX=705) U Methamphetamines Scrn (JUFQGM=536) U Benzodiazepines Scrn (MWBYIZ=049) U Cocaine Metab Screen (GZDOAV=740) U Marijuana (THC) Screen (CUTOFF=50) Ethyl Alcohol 0.00 (0.00) gm% Ketones (0.0-0.3) mM SARS-CoV-2 RNA (ROZINA) (NEGATIVE) 01/08/21 01/08/21 01/08/21 Range/Units 14:16 14:16 18:05 WBC (3.98-10.04) K/mm3 RBC (3.98-5.22) M/mm3 Hgb (11.2-15.7) gm/dl Hct (34.1-44.9) % MCV (79.4-94.8) fl MCH (25.6-32.2) pg MCHC (32.2-35.5) g/dl RDW Std Deviation (36.4-46.3) fL Plt Count (182-369) K/mm3 MPV (9.4-12.3) fl Neut % (Auto) (34.0-71.1) % Lymph % (Auto) (19.3-51.7) % [place] % (Auto) (4.7-12.5) % Eos % (Auto) (0.7-5.8) Baso % (Auto) (0.1-1.2) % Neut # (Auto) (1.56-6.13) K/mm3 Lymph # (Auto) (1.18-3.74) K/mm3 [place] # (Auto) (0.24-0.36) K/mm3 Eos # (Auto) (0.04-0.36) K/mm3 Baso # (Auto) (0.01-0.08) K/mm3 Manual Slide Review PT (9.7-12.0) SECONDS INR APTT (21.7-31.4) SECONDS Puncture Site ABG pH (7.35-7.45) ABG pCO2 (35.0-45.0) mmHg ABG pO2 (80.0-100.0) mmHg ABG HCO3 (22.0-26.0) meq/L ABG O2 Saturation (96.0-97.0) % ABG Base Excess (-2-2.0) O2 Delivery Device Sodium (136-145) mEq/L Potassium (3.5-5.1) mEq/L Chloride (98-107) mEq/L Carbon Dioxide (21-32) mEq/L Anion Gap (5-15) BUN (7-18) mg/dL Creatinine (0.55-1.02) mg/dL Est Cr Clr Drug Dosing Estimated GFR (MDRD) (>60) mL/min BUN/Creatinine Ratio (14-18) Glucose (70-99) mg/dL POC Glucose (70-99) mg/dL Lactic Acid 10.7 H* 8.3 H* (0.4-2.0) mmol/L Calcium (8.5-10.1) mg/dL Magnesium (1.8-2.4) mg/dL Total Bilirubin (0.2-1.0) mg/dL GGT (5-55) U/L AST (15-37) U/L ALT (14-59) U/L Alkaline Phosphatase (46-116) U/L Ammonia 15 (11-32) umol/L Creatine Kinase (26-192) U/L Troponin I (0.00-0.056) ng/mL C-Reactive Protein (<1.0) mg/dL NT-Pro-B Natriuret Pep (0-125) pg/mL Total Protein (6.4-8.2) g/dl Albumin (3.4-5.0) g/dl Globulin gm/dL Albumin/Globulin Ratio (1-2) Lipase (73-393) U/L HCG, Qual (NEGATIVE) Urine Color (Yellow) Urine Appearance (Clear) Urine pH (5.0-8.0) Ur Specific [place] (1.005-1.030) Urine Protein (Negative) Urine Glucose (UA) (Negative) Urine Ketones (Negative) Urine Occult Blood (Negative) Urine Nitrite (Negative) Urine Bilirubin (Negative) Urine Urobilinogen (0.2-1.0) Ur Leukocyte Esterase (Negative) U Hyaline Cast (Auto) (0-5) /lpf Urine RBC (0-5) /hpf Urine WBC (0-5) /hpf Ur Squamous Epith Cells (0-5) /hpf Urine Bacteria (FEW) /hpf Urine Mucus (FEW) /hpf Urine Opiates Screen (TILFTI=243) Ur Buprenorphine Scrn (CUTOFF=10) Ur Oxycodone Screen (JBG7EJ=802) Urine Methadone Screen (RQLSRV=712) Ur Propoxyphene Screen (SIVHSQ=983) Ur Barbiturates Screen (IFARQD=435) Ur Tricyclics Screen (WXHKPX=663) Ur Phencyclidine Scrn (CUTOFF=25) Ur Amphetamine Screen (PRJHHC=986) U Methamphetamines Scrn (MXEYAC=390) U Benzodiazepines Scrn (JUAVFF=643) U Cocaine Metab Screen (APDAGK=838) U Marijuana (THC) Screen (CUTOFF=50) Ethyl Alcohol (0.00) gm% Ketones (0.0-0.3) mM SARS-CoV-2 RNA (ROZINA) (NEGATIVE) 01/08/21 Range/Units 19:05 WBC (3.98-10.04) K/mm3 RBC (3.98-5.22) M/mm3 Hgb (11.2-15.7) gm/dl Hct (34.1-44.9) % MCV (79.4-94.8) fl MCH (25.6-32.2) pg MCHC (32.2-35.5) g/dl RDW Std Deviation (36.4-46.3) fL Plt Count (182-369) K/mm3 MPV (9.4-12.3) fl Neut % (Auto) (34.0-71.1) % Lymph % (Auto) (19.3-51.7) % [place] % (Auto) (4.7-12.5) % Eos % (Auto) (0.7-5.8) Baso % (Auto) (0.1-1.2) % Neut # (Auto) (1.56-6.13) K/mm3 Lymph # (Auto) (1.18-3.74) K/mm3 [place] # (Auto) (0.24-0.36) K/mm3 Eos # (Auto) (0.04-0.36) K/mm3 Baso # (Auto) (0.01-0.08) K/mm3 Manual Slide Review PT (9.7-12.0) SECONDS INR APTT (21.7-31.4) SECONDS Puncture Site ABG pH (7.35-7.45) ABG pCO2 (35.0-45.0) mmHg ABG pO2 (80.0-100.0) mmHg ABG HCO3 (22.0-26.0) meq/L ABG O2 Saturation (96.0-97.0) % ABG Base Excess (-2-2.0) O2 Delivery Device Sodium (136-145) mEq/L Potassium (3.5-5.1) mEq/L Chloride (98-107) mEq/L Carbon Dioxide (21-32) mEq/L Anion Gap (5-15) BUN (7-18) mg/dL Creatinine (0.55-1.02) mg/dL Est Cr Clr Drug Dosing Estimated GFR (MDRD) (>60) mL/min BUN/Creatinine Ratio (14-18) Glucose (70-99) mg/dL POC Glucose 88 (70-99) mg/dL Lactic Acid (0.4-2.0) mmol/L Calcium (8.5-10.1) mg/dL Magnesium (1.8-2.4) mg/dL Total Bilirubin (0.2-1.0) mg/dL GGT (5-55) U/L AST (15-37) U/L ALT (14-59) U/L Alkaline Phosphatase (46-116) U/L Ammonia (11-32) umol/L Creatine Kinase (26-192) U/L Troponin I (0.00-0.056) ng/mL C-Reactive Protein (<1.0) mg/dL NT-Pro-B Natriuret Pep (0-125) pg/mL Total Protein (6.4-8.2) g/dl Albumin (3.4-5.0) g/dl Globulin gm/dL Albumin/Globulin Ratio (1-2) Lipase (73-393) U/L HCG, Qual (NEGATIVE) Urine Color (Yellow) Urine Appearance (Clear) Urine pH (5.0-8.0) Ur Specific [place] (1.005-1.030) Urine Protein (Negative) Urine Glucose (UA) (Negative) Urine Ketones (Negative) Urine Occult Blood (Negative) Urine Nitrite (Negative) Urine Bilirubin (Negative) Urine Urobilinogen (0.2-1.0) Ur Leukocyte Esterase (Negative) U Hyaline Cast (Auto) (0-5) /lpf Urine RBC (0-5) /hpf Urine WBC (0-5) /hpf Ur Squamous Epith Cells (0-5) /hpf Urine Bacteria (FEW) /hpf Urine Mucus (FEW) /hpf Urine Opiates Screen (ZOIXMZ=542) Ur Buprenorphine Scrn (CUTOFF=10) Ur Oxycodone Screen (AHD4WB=586) Urine Methadone Screen (SJVOFV=495) Ur Propoxyphene Screen (YXPDQL=491) Ur Barbiturates Screen (RGIATN=613) Ur Tricyclics Screen (ZUIYDS=062) Ur Phencyclidine Scrn (CUTOFF=25) Ur Amphetamine Screen (XZXBED=393) U Methamphetamines Scrn (MXCZON=204) U Benzodiazepines Scrn (NGYCPD=248) U Cocaine Metab Screen (ULLNPV=526) U Marijuana (THC) Screen (CUTOFF=50) Ethyl Alcohol (0.00) gm% Ketones (0.0-0.3) mM SARS-CoV-2 RNA (ROZINA) (NEGATIVE) Result Diagrams: 01/08/21 14:06 01/08/21 14:10 #1 Interpretation EKG Date: 01/08/21 Time: 16:00 Rhythm: NSR [place]: Normal P-Wave: Present QRS: Normal ST-T: Normal Sepsis Event Note - Evaluation Sepsis Screening Result: No Definite Risk Possible Source of Sepsis: Unknown - Focused Exam Sepsis Event Note Statement: no signs pneumonia and or peritonitis. abd perferation or skin . Vital Signs: Vital Signs Temp Pulse Resp BP Pulse Ox 01/08/21 13:56 36.7 C 130 H 18 94/33 L 100 - Bedside Monitoring Bedside Ultrasound Performed: No Passive Leg Raise/Fluid Bolus: Negative Date Bedside Monitoring was Performed: 01/08/21 Time Bedside Monitoring was Performed: 20:29 - Problem List (1) Liver disease, alcoholic SNOMED Code(s): 11807036 ICD Code: K70.9 - ALCOHOLIC LIVER DISEASE, UNSPECIFIED Status: Acute Priority: High Current Visit: Yes Onset Date: ~01/08/21 (2) Lactic acid acidosis SNOMED Code(s): 57724661 ICD Code: E87.2 - ACIDOSIS Status: Acute Priority: High Current Visit: Yes Onset Date: ~01/08/21 Problem List Initiated/Reviewed/Updated: Yes Orders Last 24hrs: Active Orders 24 hr Category Date Time Status Insert Meredith Catheter [Insert Urinary Catheter] [OM.PC] Care 01/08/21 19:15 Ordered Q24H Insert Meredith Catheter [Insert Urinary Catheter] [OM.PC] Care 01/08/21 19:30 Ordered Q24H Urinary Catheter Assessment [RC] ASDIRECTED Care 01/08/21 19:05 Active Abdomen Pelvis w Cont [CT] Stat Exams 01/08/21 14:53 Taken Chest 1V Frontal [CR] Stat Exams 01/08/21 13:47 Taken Head wo Cont [CT] Stat Exams 01/08/21 14:55 Taken BLOOD CULTURE [MREF] Stat Lab 01/08/21 14:05 Received BLOOD CULTURE [MREF] Stat Lab 01/08/21 14:16 Received CULTURE URINE [MREF] Stat Lab 01/08/21 13:50 Received REFLEX LACTIC ACID YES OR NO [CHEM] Routine Lab 01/08/21 18:46 Received Dextrose 5%-0.9% NaCl [Dextrose 5%-Normal Saline] 1,000 Med 01/08/21 14:00 Active ml IV ASDIRECTED Dextrose 5%-0.9% NaCl [Dextrose 5%-Normal Saline] 1,000 Med 01/08/21 19:15 Active ml IV ASDIRECTED Sodium Chloride 0.9% [Normal Saline] 1,000 ml Med 01/08/21 15:30 Active IV ASDIRECTED Sodium Chloride 0.9% [Normal Saline] 1,000 ml Med 01/08/21 17:45 Active IV ASDIRECTED Sodium Chloride 0.9% [Normal Saline] 1,000 ml Med 01/08/21 19:00 Active IV ASDIRECTED Blood Culture x2 Reflex Set [OM.PC] Stat Oth 01/08/21 13:47 Ordered Medication Orders Dextrose/Sodium Chloride (Dextrose 5%-Normal Saline) 1,000 mls @ 500 mls/hr IV ASDIRECTED VALDO Last Infusion: 01/08/21 14:07 Dose: 500 mls/hr Documented by: Admin: 01/08/21 14:07 Dose: 250 mls/hr Documented by: DARVIN Sodium Chloride (Normal Saline) 1,000 mls @ 999 mls/hr IV ASDIRECTED [facility] Last Admin: 01/08/21 15:40 Dose: 999 mls/hr Documented by: DARVIN Sodium Chloride (Normal Saline) 1,000 mls @ 999 mls/hr IV ASDIRECTED [facility] Last Admin: 01/08/21 17:46 Dose: 999 mls/hr Documented by: DARVIN Sodium Chloride (Normal Saline) 1,000 mls @ 150 mls/hr IV ASDIRECTED [facility] Last Admin: 01/08/21 18:56 Dose: 150 mls/hr Documented by: DARVIN Dextrose/Sodium Chloride (Dextrose 5%-Normal Saline) 1,000 mls @ 999 mls/hr IV ASDIRECTED [facility] Last Admin: 01/08/21 19:18 Dose: 999 mls/hr Documented by: DARVIN plan: admit to scu/// repeat lactic acid in am and cont i.v hydration as urine output slow despite fluid today. no def atn but suspected. 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 dx of cirrhosis t.b 4.7) and etoh withdrawal. emperic rocephin started sec. to lactic acidosis but may be just r elated to hydration // liver disease or other cause. no signs infection currently emperic culture screen urine and blood. no signs menningitis and or acute hepatic encephalitis on reeval. lfts moderately elavated but lipase normal a nd ct scan no acute pancreatitis. nicotine widthdrawal and patch offerred. covid hx and screen negative. rule out cardiac and or myoglobinemia but no infiltrates seen on xray. responding to ativan/hydration /thiamine but may need additional treatments /supportive care for withdrawal. electrolytes fairly unremarkable. - Mortality Measure Prognosis:: Poor
[2021-01-08] MEDS: Dextrose 5%-0.9% NaCl 1,000 ML IV SCH (21:53)
[2021-01-08] MEDS ORDERED: Potassium Chloride 10 MEQ in Premix Bag 1 BAG IV ONE (22:40)
[2021-01-08] MEDS ORDERED: Ondansetron 4 MG/2 ML SDV IVPUSH PRN (23:04)
[2021-01-08] MEDS ORDERED: Ondansetron 4 MG Tab.DIS PO PRN (23:44)
[2021-01-09] MEDS: Dextrose 5%-0.9% NaCl 1,000 ML IV SCH ×2 (04:38→11:05)
[2021-01-09] MEDS ORDERED: Nicotine 21 MG/24 Hr Patch TRDERM ONE (04:45)
[2021-01-09] MEDS: LORazepam 2 MG/ML SDV IVPUSH PRN ×7 (05:08→23:31)
--- NOTE | 2021-01-09 06:52 | CR ---
Chest: Portable view of the chest was obtained. Comparison: Prior chest x-ray of 05/10/20. Nodular density is seen within the right lung base. This is most likely due to nipple density. Lungs otherwise are clear. Four subacute rib fractures are seen within the seventh, eighth, ninth and tenth ribs which show visualization of the fracture line but also show callus. Heart size and mediastinum are normal. Impression: 1. Four subacute left-sided rib fractures as described above. 2. Nodule within the right lung base most likely representing nipple density. 3. Nothing acute is otherwise seen on frontal chest x-ray. Diagnostic code #2
--- NOTE | 2021-01-09 06:52 | CT ---
Head CT Technique: Multiple axial sections through the brain were obtained. Intravenous contrast was not utilized. Reconstructed coronal and sagittal images were obtained. Comparison: No prior intracranial imaging is available. Findings: Motion artifact is noted on the study. No definite abnormal parenchymal densities are seen. No evidence of intracranial hemorrhage is seen. No midline shift or mass-effect is seen. Bone window settings were reviewed. No discrete abnormality is seen within the visualized mastoid or paranasal sinuses. No definite acute calvarial abnormality is appreciated. Impression: 1. Motion artifact. Within this limitation, nothing acute is otherwise seen on noncontrast head CT. Diagnostic code #2 I agree with preliminary report from [facility], finalized on 01/08/21, 6:15 PM CDT
[2021-01-09] MEDS ORDERED: Magnesium Sulfate/Water 4 GM in Premix Bag 1 BAG IV ONE (07:46)
[2021-01-09] MEDS: Potassium Chloride 10 MEQ in Premix Bag 1 BAG IV SCH ×4 (08:02→11:05)
--- NOTE | 2021-01-09 08:20 | CT ---
CT abdomen and pelvis Technique: Multiple axial sections were obtained from above the dome of the diaphragm inferiorly through the pubic symphysis. Intravenous contrast was utilized. Reconstructed coronal and sagittal images were obtained. Comparison: Prior CT abdomen and pelvis study of 05/10/20. Findings: Visualized lung bases shows nothing acute. Liver is enlarged and shows severe fatty infiltration. Spleen size is normal. Adrenal glands show no nodule. Pancreas shows no abnormality. Gallbladder contains no calcified gallstones. Abdominal aorta shows no aneurysm. No retroperitoneal adenopathy is seen. No mesenteric abnormalities are noted. Colon shows questionable wall thickening. This is not a definite finding but could represent a mild nonspecific colitis. Please correlate with patient's symptoms. Appendix is seen and is normal in size. No significant fluid is seen within the abdomen or pelvis. Bladder shows small areas of air presumably due to recent instrumentation. Bone window settings were reviewed which show no acute osseous abnormality. Impression: 1. Liver is enlarged and shows severe fatty infiltration. Findings have progressed from prior exam. 2. Questionable wall thickening within the colon and difficult to exclude colitis if patient has correlating symptoms. 3. Air within the bladder presumably due to recent instrumentation. 4. No other acute abnormality is identified. Diagnostic code #3 I agree with preliminary report from [facility], finalized on 01/08/21, 6:30 PM CDT, code 1
[2021-01-09] MEDS ORDERED: Albumin 25% 12.5 GM/50 ML BAG IV ONE ×2 (11:03→16:20)
--- NOTE | 2021-01-09 11:03 | PCM.PN ---
- General Info Date of Service: 01/09/21 Admission Dx/Problem (Free Text): etoh abuse /unresponsive. Subjective Update: Patient was given a total of 3 mg this morning secondary to alcohol withdrawal. By the late morning and early afternoon she became more alert and talkative. She is now cooperative and oriented x3. Patient is severe alcoholic and drinks Raymundo Amezcua up to 750 mL daily. She was found on the ground passed out and there was concern about possible seizure activity secondary to her CK level and lactic acid. Lactic acid decreased to 3.6, but even with continued fluids has increased to 5. She is having significant third spacing with poor urine output. She is severely nourished secondary to poor oral intake. Functional Status: Reports: Pain Controlled - Review of Systems General: Reports: Fatigue HEENT: Reports: No Symptoms Pulmonary: Reports: No Symptoms Cardiovascular: Reports: No Symptoms - Patient Data Vitals - Most Recent: Last Vital Signs Temp 98.2 F 01/09/21 08:17 Pulse 109 H 01/09/21 05:00 Resp 20 01/09/21 08:17 BP 106/76 01/09/21 08:01 Pulse Ox 99 01/09/21 08:01 Weight - Most Recent: 117 lb 3.2 oz I&O - Last 24 Hours: Intake & Output 01/08/21 01/09/21 01/09/21 22:59 06:59 14:59 Intake Total 1260 Output Total 250 340 62 Balance -250 920 -62 Lab Results Last 24 Hours: Laboratory Results - last 24 hr 01/08/21 01/08/21 01/08/21 Range/Units 09:14 13:45 13:46 WBC (3.98-10.04) K/mm3 RBC (3.98-5.22) M/mm3 Hgb (11.2-15.7) gm/dl Hct (34.1-44.9) % MCV (79.4-94.8) fl MCH (25.6-32.2) pg MCHC (32.2-35.5) g/dl RDW Std Deviation (36.4-46.3) fL Plt Count (182-369) K/mm3 MPV (9.4-12.3) fl Neut % (Auto) (34.0-71.1) % Lymph % (Auto) (19.3-51.7) % Mora % (Auto) (4.7-12.5) % Eos % (Auto) (0.7-5.8) Baso % (Auto) (0.1-1.2) % Neut # (Auto) (1.56-6.13) K/mm3 Lymph # (Auto) (1.18-3.74) K/mm3 Mora # (Auto) (0.24-0.36) K/mm3 Eos # (Auto) (0.04-0.36) K/mm3 Baso # (Auto) (0.01-0.08) K/mm3 Manual Slide Review PT (9.7-12.0) SECONDS INR APTT (21.7-31.4) SECONDS Puncture Site Lt radial ABG pH 7.47 H (7.35-7.45) ABG pCO2 24.3 L (35.0-45.0) mmHg ABG pO2 78.0 L (80.0-100.0) mmHg ABG HCO3 17.6 L (22.0-26.0) meq/L ABG O2 Saturation 96.1 (96.0-97.0) % ABG Base Excess -4.1 L (-2-2.0) O2 Delivery Device Room air Sodium (136-145) mEq/L Potassium (3.5-5.1) mEq/L Chloride (98-107) mEq/L Carbon Dioxide (21-32) mEq/L Anion Gap (5-15) BUN (7-18) mg/dL Creatinine (0.55-1.02) mg/dL Est Cr Clr Drug Dosing Estimated GFR (MDRD) (>60) mL/min BUN/Creatinine Ratio (14-18) Glucose (70-99) mg/dL POC Glucose 132 H (70-99) mg/dL Lactic Acid (0.4-2.0) mmol/L Calcium (8.5-10.1) mg/dL Phosphorus (2.6-4.7) mg/dL Magnesium (1.8-2.4) mg/dL Total Bilirubin (0.2-1.0) mg/dL GGT (5-55) U/L AST (15-37) U/L ALT (14-59) U/L Alkaline Phosphatase (46-116) U/L Ammonia (11-32) umol/L Creatine Kinase 149 (26-192) U/L Troponin I (0.00-0.056) ng/mL C-Reactive Protein (<1.0) mg/dL NT-Pro-B Natriuret Pep (0-125) pg/mL Total Protein (6.4-8.2) g/dl Albumin (3.4-5.0) g/dl Globulin gm/dL Albumin/Globulin Ratio (1-2) Lipase (73-393) U/L HCG, Qual (NEGATIVE) Urine Color (Yellow) Urine Appearance (Clear) Urine pH (5.0-8.0) Ur Specific [place] (1.005-1.030) Urine Protein (Negative) Urine Glucose (UA) (Negative) Urine Ketones (Negative) Urine Occult Blood (Negative) Urine Nitrite (Negative) Urine Bilirubin (Negative) Urine Urobilinogen (0.2-1.0) Ur Leukocyte Esterase (Negative) U Hyaline Cast (Auto) (0-5) /lpf Urine RBC (0-5) /hpf Urine WBC (0-5) /hpf Ur Squamous Epith Cells (0-5) /hpf Urine Bacteria (FEW) /hpf Urine Mucus (FEW) /hpf Urine Opiates Screen (GZDHHH=930) Ur Buprenorphine Scrn (CUTOFF=10) Ur Oxycodone Screen (LMF8YT=916) Urine Methadone Screen (ZBTIRY=939) Ur Propoxyphene Screen (ZAQGNI=654) Ur Barbiturates Screen (WBQAER=099) Ur Tricyclics Screen (RBQZJU=790) Ur Phencyclidine Scrn (CUTOFF=25) Ur Amphetamine Screen (FGTJRL=065) U Methamphetamines Scrn (GBPYIR=066) U Benzodiazepines Scrn (WMTPEO=021) U Cocaine Metab Screen (QZBCFC=216) U Marijuana (THC) Screen (CUTOFF=50) Ethyl Alcohol (0.00) gm% Ketones (0.0-0.3) mM SARS-CoV-2 RNA (ROZINA) (NEGATIVE) 01/08/21 01/08/21 01/08/21 Range/Units 13:46 13:47 13:50 WBC (3.98-10.04) K/mm3 RBC (3.98-5.22) M/mm3 Hgb (11.2-15.7) gm/dl Hct (34.1-44.9) % MCV (79.4-94.8) fl MCH (25.6-32.2) pg MCHC (32.2-35.5) g/dl RDW Std Deviation (36.4-46.3) fL Plt Count (182-369) K/mm3 MPV (9.4-12.3) fl Neut % (Auto) (34.0-71.1) % Lymph % (Auto) (19.3-51.7) % Mora % (Auto) (4.7-12.5) % Eos % (Auto) (0.7-5.8) Baso % (Auto) (0.1-1.2) % Neut # (Auto) (1.56-6.13) K/mm3 Lymph # (Auto) (1.18-3.74) K/mm3 Mora # (Auto) (0.24-0.36) K/mm3 Eos # (Auto) (0.04-0.36) K/mm3 Baso # (Auto) (0.01-0.08) K/mm3 Manual Slide Review PT 12.3 H (9.7-12.0) SECONDS INR 1.15 APTT 22.6 (21.7-31.4) SECONDS Puncture Site ABG pH (7.35-7.45) ABG pCO2 (35.0-45.0) mmHg ABG pO2 (80.0-100.0) mmHg ABG HCO3 (22.0-26.0) meq/L ABG O2 Saturation (96.0-97.0) % ABG Base Excess (-2-2.0) O2 Delivery Device Sodium (136-145) mEq/L Potassium (3.5-5.1) mEq/L Chloride (98-107) mEq/L Carbon Dioxide (21-32) mEq/L Anion Gap (5-15) BUN (7-18) mg/dL Creatinine (0.55-1.02) mg/dL Est Cr Clr Drug Dosing Estimated GFR (MDRD) (>60) mL/min BUN/Creatinine Ratio (14-18) Glucose (70-99) mg/dL POC Glucose (70-99) mg/dL Lactic Acid (0.4-2.0) mmol/L Calcium (8.5-10.1) mg/dL Phosphorus (2.6-4.7) mg/dL Magnesium (1.8-2.4) mg/dL Total Bilirubin (0.2-1.0) mg/dL GGT (5-55) U/L AST (15-37) U/L ALT (14-59) U/L Alkaline Phosphatase (46-116) U/L Ammonia (11-32) umol/L Creatine Kinase (26-192) U/L Troponin I (0.00-0.056) ng/mL C-Reactive Protein (<1.0) mg/dL NT-Pro-B Natriuret Pep (0-125) pg/mL Total Protein (6.4-8.2) g/dl Albumin (3.4-5.0) g/dl Globulin gm/dL Albumin/Globulin Ratio (1-2) Lipase (73-393) U/L HCG, Qual (NEGATIVE) Urine Color (Yellow) Urine Appearance (Clear) Urine pH (5.0-8.0) Ur Specific [place] (1.005-1.030) Urine Protein (Negative) Urine Glucose (UA) (Negative) Urine Ketones (Negative) Urine Occult Blood (Negative) Urine Nitrite (Negative) Urine Bilirubin (Negative) Urine Urobilinogen (0.2-1.0) Ur Leukocyte Esterase (Negative) U Hyaline Cast (Auto) (0-5) /lpf Urine RBC (0-5) /hpf Urine WBC (0-5) /hpf Ur Squamous Epith Cells (0-5) /hpf Urine Bacteria (FEW) /hpf Urine Mucus (FEW) /hpf Urine Opiates Screen (NADNFZ=881) Ur Buprenorphine Scrn (CUTOFF=10) Ur Oxycodone Screen (SLS4AX=134) Urine Methadone Screen (YYHXDU=780) Ur Propoxyphene Screen (CKWHDS=733) Ur Barbiturates Screen (TZZEVF=698) Ur Tricyclics Screen (SHEMBU=878) Ur Phencyclidine Scrn (CUTOFF=25) Ur Amphetamine Screen (EGUZSM=712) U Methamphetamines Scrn (ETYSZT=314) U Benzodiazepines Scrn (QCRVOW=739) U Cocaine Metab Screen (MAERDJ=402) U Marijuana (THC) Screen (CUTOFF=50) Ethyl Alcohol (0.00) gm% Ketones 2.46 (0.0-0.3) mM SARS-CoV-2 RNA (ROZINA) Negative (NEGATIVE) 01/08/21 01/08/21 01/08/21 Range/Units 13:50 13:55 14:06 WBC 15.56 H (3.98-10.04) K/mm3 RBC 4.29 (3.98-5.22) M/mm3 Hgb 15.3 (11.2-15.7) gm/dl Hct 44.4 (34.1-44.9) % MCV 103.5 H D (79.4-94.8) fl MCH 35.7 H (25.6-32.2) pg MCHC 34.5 (32.2-35.5) g/dl RDW Std Deviation 55.1 H (36.4-46.3) fL Plt Count 390 H D (182-369) K/mm3 MPV 11.2 (9.4-12.3) fl Neut % (Auto) 77.1 H (34.0-71.1) % Lymph % (Auto) 13.6 L (19.3-51.7) % Mora % (Auto) 7.3 (4.7-12.5) % Eos % (Auto) 0.2 L (0.7-5.8) Baso % (Auto) 0.9 (0.1-1.2) % Neut # (Auto) 11.99 H (1.56-6.13) K/mm3 Lymph # (Auto) 2.12 (1.18-3.74) K/mm3 Mora # (Auto) 1.14 H (0.24-0.36) K/mm3 Eos # (Auto) 0.03 L (0.04-0.36) K/mm3 Baso # (Auto) 0.14 H (0.01-0.08) K/mm3 Manual Slide Review Abnormal smear PT (9.7-12.0) SECONDS INR APTT (21.7-31.4) SECONDS Puncture Site ABG pH (7.35-7.45) ABG pCO2 (35.0-45.0) mmHg ABG pO2 (80.0-100.0) mmHg ABG HCO3 (22.0-26.0) meq/L ABG O2 Saturation (96.0-97.0) % ABG Base Excess (-2-2.0) O2 Delivery Device Sodium (136-145) mEq/L Potassium (3.5-5.1) mEq/L Chloride (98-107) mEq/L Carbon Dioxide (21-32) mEq/L Anion Gap (5-15) BUN (7-18) mg/dL Creatinine (0.55-1.02) mg/dL Est Cr Clr Drug Dosing Estimated GFR (MDRD) (>60) mL/min BUN/Creatinine Ratio (14-18) Glucose (70-99) mg/dL POC Glucose (70-99) mg/dL Lactic Acid (0.4-2.0) mmol/L Calcium (8.5-10.1) mg/dL Phosphorus (2.6-4.7) mg/dL Magnesium (1.8-2.4) mg/dL Total Bilirubin (0.2-1.0) mg/dL GGT (5-55) U/L AST (15-37) U/L ALT (14-59) U/L Alkaline Phosphatase (46-116) U/L Ammonia (11-32) umol/L Creatine Kinase (26-192) U/L Troponin I (0.00-0.056) ng/mL C-Reactive Protein (<1.0) mg/dL NT-Pro-B Natriuret Pep (0-125) pg/mL Total Protein (6.4-8.2) g/dl Albumin (3.4-5.0) g/dl Globulin gm/dL Albumin/Globulin Ratio (1-2) Lipase (73-393) U/L HCG, Qual (NEGATIVE) Urine Color [place] H (Yellow) Urine Appearance Cloudy H (Clear) Urine pH 5.5 (5.0-8.0) Ur Specific [place] 1.025 (1.005-1.030) Urine Protein 1+ H (Negative) Urine Glucose (UA) Negative (Negative) Urine Ketones 1+ H (Negative) Urine Occult Blood Negative (Negative) Urine Nitrite Negative (Negative) Urine Bilirubin 3+ H (Negative) Urine Urobilinogen >=8.0 H (0.2-1.0) Ur Leukocyte Esterase Negative (Negative) U Hyaline Cast (Auto) 10-20 H (0-5) /lpf Urine RBC 0-5 (0-5) /hpf Urine WBC 5-10 H (0-5) /hpf Ur Squamous Epith Cells 0-5 (0-5) /hpf Urine Bacteria Many H (FEW) /hpf Urine Mucus Few (FEW) /hpf Urine Opiates Screen Negative (BVUDHN=278) Ur Buprenorphine Scrn Negative (CUTOFF=10) Ur Oxycodone Screen Negative (KYP8IV=001) Urine Methadone Screen Negative (GGSFVD=262) Ur Propoxyphene Screen Negative (TUFTFT=548) Ur Barbiturates Screen Negative (GVZWME=280) Ur Tricyclics Screen Negative (FRPUCQ=927) Ur Phencyclidine Scrn Negative (CUTOFF=25) Ur Amphetamine Screen Negative (YEEYJI=142) U Methamphetamines Scrn Negative (PTMKBE=377) U Benzodiazepines Scrn Negative (EMJXMH=541) U Cocaine Metab Screen Negative (OVWVAW=660) U Marijuana (THC) Screen Negative (CUTOFF=50) Ethyl Alcohol (0.00) gm% Ketones (0.0-0.3) mM SARS-CoV-2 RNA (ROZINA) (NEGATIVE) 01/08/21 01/08/21 01/08/21 Range/Units 14:10 14:10 14:10 WBC (3.98-10.04) K/mm3 RBC (3.98-5.22) M/mm3 Hgb (11.2-15.7) gm/dl Hct (34.1-44.9) % MCV (79.4-94.8) fl MCH (25.6-32.2) pg MCHC (32.2-35.5) g/dl RDW Std Deviation (36.4-46.3) fL Plt Count (182-369) K/mm3 MPV (9.4-12.3) fl Neut % (Auto) (34.0-71.1) % Lymph % (Auto) (19.3-51.7) % Mora % (Auto) (4.7-12.5) % Eos % (Auto) (0.7-5.8) Baso % (Auto) (0.1-1.2) % Neut # (Auto) (1.56-6.13) K/mm3 Lymph # (Auto) (1.18-3.74) K/mm3 [place] # (Auto) (0.24-0.36) K/mm3 Eos # (Auto) (0.04-0.36) K/mm3 Baso # (Auto) (0.01-0.08) K/mm3 Manual Slide Review PT (9.7-12.0) SECONDS INR APTT (21.7-31.4) SECONDS Puncture Site ABG pH (7.35-7.45) ABG pCO2 (35.0-45.0) mmHg ABG pO2 (80.0-100.0) mmHg ABG HCO3 (22.0-26.0) meq/L ABG O2 Saturation (96.0-97.0) % ABG Base Excess (-2-2.0) O2 Delivery Device Sodium 136 (136-145) mEq/L Potassium 3.3 L (3.5-5.1) mEq/L Chloride 93 L D (98-107) mEq/L Carbon Dioxide 22 (21-32) mEq/L Anion Gap 24.3 H (5-15) BUN 26 H (7-18) mg/dL Creatinine 1.0 (0.55-1.02) mg/dL Est Cr Clr Drug Dosing TNP Estimated GFR (MDRD) > 60 (>60) mL/min BUN/Creatinine Ratio 26.0 H (14-18) Glucose 139 H (70-99) mg/dL POC Glucose (70-99) mg/dL Lactic Acid (0.4-2.0) mmol/L Calcium 9.0 (8.5-10.1) mg/dL Phosphorus (2.6-4.7) mg/dL Magnesium 2.4 (1.8-2.4) mg/dL Total Bilirubin 4.9 H (0.2-1.0) mg/dL GGT 494 H (5-55) U/L AST 371 H (15-37) U/L ALT 256 H (14-59) U/L Alkaline Phosphatase 156 H (46-116) U/L Ammonia (11-32) umol/L Creatine Kinase (26-192) U/L Troponin I 0.026 (0.00-0.056) ng/mL C-Reactive Protein 1.9 H* (<1.0) mg/dL NT-Pro-B Natriuret Pep 847 H (0-125) pg/mL Total Protein 6.9 (6.4-8.2) g/dl Albumin 3.1 L (3.4-5.0) g/dl Globulin 3.8 gm/dL Albumin/Globulin Ratio 0.8 L (1-2) Lipase 110 (73-393) U/L HCG, Qual Negative (NEGATIVE) Urine Color (Yellow) Urine Appearance (Clear) Urine pH (5.0-8.0) Ur Specific [place] (1.005-1.030) Urine Protein (Negative) Urine Glucose (UA) (Negative) Urine Ketones (Negative) Urine Occult Blood (Negative) Urine Nitrite (Negative) Urine Bilirubin (Negative) Urine Urobilinogen (0.2-1.0) Ur Leukocyte Esterase (Negative) U Hyaline Cast (Auto) (0-5) /lpf Urine RBC (0-5) /hpf Urine WBC (0-5) /hpf Ur Squamous Epith Cells (0-5) /hpf Urine Bacteria (FEW) /hpf Urine Mucus (FEW) /hpf Urine Opiates Screen (CMHMCK=387) Ur Buprenorphine Scrn (CUTOFF=10) Ur Oxycodone Screen (JCV1TL=326) Urine Methadone Screen (VJWBHP=981) Ur Propoxyphene Screen (IDYVXX=677) Ur Barbiturates Screen (SWHIQE=987) Ur Tricyclics Screen (FUTHZM=186) Ur Phencyclidine Scrn (CUTOFF=25) Ur Amphetamine Screen (EYPXLU=309) U Methamphetamines Scrn (TFDGOO=137) U Benzodiazepines Scrn (MMVMGP=820) U Cocaine Metab Screen (SOWOSD=298) U Marijuana (THC) Screen (CUTOFF=50) Ethyl Alcohol 0.00 (0.00) gm% Ketones (0.0-0.3) mM SARS-CoV-2 RNA (ROZINA) (NEGATIVE) 01/08/21 01/08/21 01/08/21 Range/Units 14:16 14:16 18:05 WBC (3.98-10.04) K/mm3 RBC (3.98-5.22) M/mm3 Hgb (11.2-15.7) gm/dl Hct (34.1-44.9) % MCV (79.4-94.8) fl MCH (25.6-32.2) pg MCHC (32.2-35.5) g/dl RDW Std Deviation (36.4-46.3) fL Plt Count (182-369) K/mm3 MPV (9.4-12.3) fl Neut % (Auto) (34.0-71.1) % Lymph % (Auto) (19.3-51.7) % [place] % (Auto) (4.7-12.5) % Eos % (Auto) (0.7-5.8) Baso % (Auto) (0.1-1.2) % Neut # (Auto) (1.56-6.13) K/mm3 Lymph # (Auto) (1.18-3.74) K/mm3 [place] # (Auto) (0.24-0.36) K/mm3 Eos # (Auto) (0.04-0.36) K/mm3 Baso # (Auto) (0.01-0.08) K/mm3 Manual Slide Review PT (9.7-12.0) SECONDS INR APTT (21.7-31.4) SECONDS Puncture Site ABG pH (7.35-7.45) ABG pCO2 (35.0-45.0) mmHg ABG pO2 (80.0-100.0) mmHg ABG HCO3 (22.0-26.0) meq/L ABG O2 Saturation (96.0-97.0) % ABG Base Excess (-2-2.0) O2 Delivery Device Sodium (136-145) mEq/L Potassium (3.5-5.1) mEq/L Chloride (98-107) mEq/L Carbon Dioxide (21-32) mEq/L Anion Gap (5-15) BUN (7-18) mg/dL Creatinine (0.55-1.02) mg/dL Est Cr Clr Drug Dosing Estimated GFR (MDRD) (>60) mL/min BUN/Creatinine Ratio (14-18) Glucose (70-99) mg/dL POC Glucose (70-99) mg/dL Lactic Acid 10.7 H* 8.3 H* (0.4-2.0) mmol/L Calcium (8.5-10.1) mg/dL Phosphorus (2.6-4.7) mg/dL Magnesium (1.8-2.4) mg/dL Total Bilirubin (0.2-1.0) mg/dL GGT (5-55) U/L AST (15-37) U/L ALT (14-59) U/L Alkaline Phosphatase (46-116) U/L Ammonia 15 (11-32) umol/L Creatine Kinase (26-192) U/L Troponin I (0.00-0.056) ng/mL C-Reactive Protein (<1.0) mg/dL NT-Pro-B Natriuret Pep (0-125) pg/mL Total Protein (6.4-8.2) g/dl Albumin (3.4-5.0) g/dl Globulin gm/dL Albumin/Globulin Ratio (1-2) Lipase (73-393) U/L HCG, Qual (NEGATIVE) Urine Color (Yellow) Urine Appearance (Clear) Urine pH (5.0-8.0) Ur Specific [place] (1.005-1.030) Urine Protein (Negative) Urine Glucose (UA) (Negative) Urine Ketones (Negative) Urine Occult Blood (Negative) Urine Nitrite (Negative) Urine Bilirubin (Negative) Urine Urobilinogen (0.2-1.0) Ur Leukocyte Esterase (Negative) U Hyaline Cast (Auto) (0-5) /lpf Urine RBC (0-5) /hpf Urine WBC (0-5) /hpf Ur Squamous Epith Cells (0-5) /hpf Urine Bacteria (FEW) /hpf Urine Mucus (FEW) /hpf Urine Opiates Screen (EZYXTL=339) Ur Buprenorphine Scrn (CUTOFF=10) Ur Oxycodone Screen (KRF9CY=119) Urine Methadone Screen (UWPTLS=759) Ur Propoxyphene Screen (NEXKKB=155) Ur Barbiturates Screen (WZTWQR=123) Ur Tricyclics Screen (DIEPFJ=391) Ur Phencyclidine Scrn (CUTOFF=25) Ur Amphetamine Screen (AVYWMA=240) U Methamphetamines Scrn (XTMZYC=993) U Benzodiazepines Scrn (SXLHZB=325) U Cocaine Metab Screen (KGAGVD=624) U Marijuana (THC) Screen (CUTOFF=50) Ethyl Alcohol (0.00) gm% Ketones (0.0-0.3) mM SARS-CoV-2 RNA (ROZINA) (NEGATIVE) 01/08/21 01/08/21 01/09/21 Range/Units 19:05 21:00 05:30 WBC (3.98-10.04) K/mm3 RBC (3.98-5.22) M/mm3 Hgb (11.2-15.7) gm/dl Hct (34.1-44.9) % MCV (79.4-94.8) fl MCH (25.6-32.2) pg MCHC (32.2-35.5) g/dl RDW Std Deviation (36.4-46.3) fL Plt Count (182-369) K/mm3 MPV (9.4-12.3) fl Neut % (Auto) (34.0-71.1) % Lymph % (Auto) (19.3-51.7) % [place] % (Auto) (4.7-12.5) % Eos % (Auto) (0.7-5.8) Baso % (Auto) (0.1-1.2) % Neut # (Auto) (1.56-6.13) K/mm3 Lymph # (Auto) (1.18-3.74) K/mm3 [place] # (Auto) (0.24-0.36) K/mm3 Eos # (Auto) (0.04-0.36) K/mm3 Baso # (Auto) (0.01-0.08) K/mm3 Manual Slide Review PT (9.7-12.0) SECONDS INR APTT (21.7-31.4) SECONDS Puncture Site ABG pH (7.35-7.45) ABG pCO2 (35.0-45.0) mmHg ABG pO2 (80.0-100.0) mmHg ABG HCO3 (22.0-26.0) meq/L ABG O2 Saturation (96.0-97.0) % ABG Base Excess (-2-2.0) O2 Delivery Device Sodium (136-145) mEq/L Potassium (3.5-5.1) mEq/L Chloride (98-107) mEq/L Carbon Dioxide (21-32) mEq/L Anion Gap (5-15) BUN (7-18) mg/dL Creatinine (0.55-1.02) mg/dL Est Cr Clr Drug Dosing Estimated GFR (MDRD) (>60) mL/min BUN/Creatinine Ratio (14-18) Glucose (70-99) mg/dL POC Glucose 88 (70-99) mg/dL Lactic Acid 6.3 H* 3.4 H* (0.4-2.0) mmol/L Calcium (8.5-10.1) mg/dL Phosphorus (2.6-4.7) mg/dL Magnesium (1.8-2.4) mg/dL Total Bilirubin (0.2-1.0) mg/dL GGT (5-55) U/L AST (15-37) U/L ALT (14-59) U/L Alkaline Phosphatase (46-116) U/L Ammonia (11-32) umol/L Creatine Kinase (26-192) U/L Troponin I (0.00-0.056) ng/mL C-Reactive Protein (<1.0) mg/dL NT-Pro-B Natriuret Pep (0-125) pg/mL Total Protein (6.4-8.2) g/dl Albumin (3.4-5.0) g/dl Globulin gm/dL Albumin/Globulin Ratio (1-2) Lipase (73-393) U/L HCG, Qual (NEGATIVE) Urine Color (Yellow) Urine Appearance (Clear) Urine pH (5.0-8.0) Ur Specific [place] (1.005-1.030) Urine Protein (Negative) Urine Glucose (UA) (Negative) Urine Ketones (Negative) Urine Occult Blood (Negative) Urine Nitrite (Negative) Urine Bilirubin (Negative) Urine Urobilinogen (0.2-1.0) Ur Leukocyte Esterase (Negative) U Hyaline Cast (Auto) (0-5) /lpf Urine RBC (0-5) /hpf Urine WBC (0-5) /hpf Ur Squamous Epith Cells (0-5) /hpf Urine Bacteria (FEW) /hpf Urine Mucus (FEW) /hpf Urine Opiates Screen (DZWSSE=728) Ur Buprenorphine Scrn (CUTOFF=10) Ur Oxycodone Screen (CEY8NT=308) Urine Methadone Screen (RFFKZK=222) Ur Propoxyphene Screen (AWHDVU=444) Ur Barbiturates Screen (PVHULJ=677) Ur Tricyclics Screen (QTDJZQ=061) Ur Phencyclidine Scrn (CUTOFF=25) Ur Amphetamine Screen (HOPPXG=741) U Methamphetamines Scrn (UUBLPF=984) U Benzodiazepines Scrn (BJIVNQ=406) U Cocaine Metab Screen (QJANVH=015) U Marijuana (THC) Screen (CUTOFF=50) Ethyl Alcohol (0.00) gm% Ketones (0.0-0.3) mM SARS-CoV-2 RNA (ROZINA) (NEGATIVE) 01/09/21 01/09/21 01/09/21 Range/Units 05:30 05:30 08:27 WBC 8.92 (3.98-10.04) K/mm3 RBC 2.78 L (3.98-5.22) M/mm3 Hgb 9.8 L D (11.2-15.7) gm/dl Hct 29.4 L (34.1-44.9) % MCV 105.8 H (79.4-94.8) fl MCH 35.3 H (25.6-32.2) pg MCHC 33.3 (32.2-35.5) g/dl RDW Std Deviation 55.7 H (36.4-46.3) fL Plt Count 283 D (182-369) K/mm3 MPV 10.4 (9.4-12.3) fl Neut % (Auto) 68.3 (34.0-71.1) % Lymph % (Auto) 20.9 (19.3-51.7) % [place] % (Auto) 8.3 (4.7-12.5) % Eos % (Auto) 1.5 (0.7-5.8) Baso % (Auto) 0.7 (0.1-1.2) % Neut # (Auto) 6.10 (1.56-6.13) K/mm3 Lymph # (Auto) 1.86 (1.18-3.74) K/mm3 [place] # (Auto) 0.74 H (0.24-0.36) K/mm3 Eos # (Auto) 0.13 (0.04-0.36) K/mm3 Baso # (Auto) 0.06 (0.01-0.08) K/mm3 Manual Slide Review PT (9.7-12.0) SECONDS INR APTT (21.7-31.4) SECONDS Puncture Site ABG pH (7.35-7.45) ABG pCO2 (35.0-45.0) mmHg ABG pO2 (80.0-100.0) mmHg ABG HCO3 (22.0-26.0) meq/L ABG O2 Saturation (96.0-97.0) % ABG Base Excess (-2-2.0) O2 Delivery Device Sodium 141 (136-145) mEq/L Potassium 2.9 L (3.5-5.1) mEq/L Chloride 107 D (98-107) mEq/L Carbon Dioxide 23 (21-32) mEq/L Anion Gap 13.9 (5-15) BUN 12 (7-18) mg/dL Creatinine 0.6 (0.55-1.02) mg/dL Est Cr Clr Drug Dosing 111.39 Estimated GFR (MDRD) > 60 (>60) mL/min BUN/Creatinine Ratio 20.0 H (14-18) Glucose 97 (70-99) mg/dL POC Glucose (70-99) mg/dL Lactic Acid 3.8 H* (0.4-2.0) mmol/L Calcium 6.9 L D (8.5-10.1) mg/dL Phosphorus (2.6-4.7) mg/dL Magnesium 1.6 L (1.8-2.4) mg/dL Total Bilirubin (0.2-1.0) mg/dL GGT (5-55) U/L AST (15-37) U/L ALT (14-59) U/L Alkaline Phosphatase (46-116) U/L Ammonia (11-32) umol/L Creatine Kinase (26-192) U/L Troponin I (0.00-0.056) ng/mL C-Reactive Protein (<1.0) mg/dL NT-Pro-B Natriuret Pep (0-125) pg/mL Total Protein (6.4-8.2) g/dl Albumin (3.4-5.0) g/dl Globulin gm/dL Albumin/Globulin Ratio (1-2) Lipase (73-393) U/L HCG, Qual (NEGATIVE) Urine Color (Yellow) Urine Appearance (Clear) Urine pH (5.0-8.0) Ur Specific [place] (1.005-1.030) Urine Protein (Negative) Urine Glucose (UA) (Negative) Urine Ketones (Negative) Urine Occult Blood (Negative) Urine Nitrite (Negative) Urine Bilirubin (Negative) Urine Urobilinogen (0.2-1.0) Ur Leukocyte Esterase (Negative) U Hyaline Cast (Auto) (0-5) /lpf Urine RBC (0-5) /hpf Urine WBC (0-5) /hpf Ur Squamous Epith Cells (0-5) /hpf Urine Bacteria (FEW) /hpf Urine Mucus (FEW) /hpf Urine Opiates Screen (OVQLND=567) Ur Buprenorphine Scrn (CUTOFF=10) Ur Oxycodone Screen (HBC2IT=046) Urine Methadone Screen (MRUYFS=704) Ur Propoxyphene Screen (SMYWPB=477) Ur Barbiturates Screen (MSEMJE=717) Ur Tricyclics Screen (CUNOLQ=713) Ur Phencyclidine Scrn (CUTOFF=25) Ur Amphetamine Screen (CBLLQM=528) U Methamphetamines Scrn (QDVFSX=584) U Benzodiazepines Scrn (ZYGUZX=346) U Cocaine Metab Screen (BPQZFO=241) U Marijuana (THC) Screen (CUTOFF=50) Ethyl Alcohol (0.00) gm% Ketones (0.0-0.3) mM SARS-CoV-2 RNA (ROZINA) (NEGATIVE) 01/09/21 01/09/21 Range/Units 09:10 09:10 WBC 8.19 (3.98-10.04) K/mm3 RBC 2.55 L (3.98-5.22) M/mm3 Hgb 9.0 L (11.2-15.7) gm/dl Hct 27.1 L (34.1-44.9) % MCV 106.3 H (79.4-94.8) fl MCH 35.3 H (25.6-32.2) pg MCHC 33.2 (32.2-35.5) g/dl RDW Std Deviation 55.7 H (36.4-46.3) fL Plt Count 271 (182-369) K/mm3 MPV 10.4 (9.4-12.3) fl Neut % (Auto) 65.2 (34.0-71.1) % Lymph % (Auto) 23.9 (19.3-51.7) % [place] % (Auto) 7.8 (4.7-12.5) % Eos % (Auto) 2.0 (0.7-5.8) Baso % (Auto) 0.7 (0.1-1.2) % Neut # (Auto) 5.34 (1.56-6.13) K/mm3 Lymph # (Auto) 1.96 (1.18-3.74) K/mm3 [place] # (Auto) 0.64 H (0.24-0.36) K/mm3 Eos # (Auto) 0.16 (0.04-0.36) K/mm3 Baso # (Auto) 0.06 (0.01-0.08) K/mm3 Manual Slide Review PT (9.7-12.0) SECONDS INR APTT (21.7-31.4) SECONDS Puncture Site ABG pH (7.35-7.45) ABG pCO2 (35.0-45.0) mmHg ABG pO2 (80.0-100.0) mmHg ABG HCO3 (22.0-26.0) meq/L ABG O2 Saturation (96.0-97.0) % ABG Base Excess (-2-2.0) O2 Delivery Device Sodium 141 (136-145) mEq/L Potassium 3.0 L (3.5-5.1) mEq/L Chloride 108 H (98-107) mEq/L Carbon Dioxide 23 (21-32) mEq/L Anion Gap 13.0 (5-15) BUN 11 (7-18) mg/dL Creatinine 0.6 (0.55-1.02) mg/dL Est Cr Clr Drug Dosing 111.39 Estimated GFR (MDRD) > 60 (>60) mL/min BUN/Creatinine Ratio 18.3 H (14-18) Glucose 91 (70-99) mg/dL POC Glucose (70-99) mg/dL Lactic Acid (0.4-2.0) mmol/L Calcium 6.8 L (8.5-10.1) mg/dL Phosphorus 1.4 L (2.6-4.7) mg/dL Magnesium (1.8-2.4) mg/dL Total Bilirubin 2.2 H (0.2-1.0) mg/dL GGT (5-55) U/L AST 283 H (15-37) U/L ALT 150 H (14-59) U/L Alkaline Phosphatase 85 (46-116) U/L Ammonia (11-32) umol/L Creatine Kinase (26-192) U/L Troponin I (0.00-0.056) ng/mL C-Reactive Protein (<1.0) mg/dL NT-Pro-B Natriuret Pep (0-125) pg/mL Total Protein 4.2 L (6.4-8.2) g/dl Albumin 1.8 L (3.4-5.0) g/dl Globulin 2.4 gm/dL Albumin/Globulin Ratio 0.8 L (1-2) Lipase (73-393) U/L HCG, Qual (NEGATIVE) Urine Color (Yellow) Urine Appearance (Clear) Urine pH (5.0-8.0) Ur Specific [place] (1.005-1.030) Urine Protein (Negative) Urine Glucose (UA) (Negative) Urine Ketones (Negative) Urine Occult Blood (Negative) Urine Nitrite (Negative) Urine Bilirubin (Negative) Urine Urobilinogen (0.2-1.0) Ur Leukocyte Esterase (Negative) U Hyaline Cast (Auto) (0-5) /lpf Urine RBC (0-5) /hpf Urine WBC (0-5) /hpf Ur Squamous Epith Cells (0-5) /hpf Urine Bacteria (FEW) /hpf Urine Mucus (FEW) /hpf Urine Opiates Screen (RTBWLX=260) Ur Buprenorphine Scrn (CUTOFF=10) Ur Oxycodone Screen (VRS0VI=147) Urine Methadone Screen (EOMIFO=107) Ur Propoxyphene Screen (RBGWEM=270) Ur Barbiturates Screen (COZPYN=632) Ur Tricyclics Screen (TOGMDD=224) Ur Phencyclidine Scrn (CUTOFF=25) Ur Amphetamine Screen (FNLJAW=351) U Methamphetamines Scrn (LYNUQA=095) U Benzodiazepines Scrn (HXKBNG=162) U Cocaine Metab Screen (AVTOGY=864) U Marijuana (THC) Screen (CUTOFF=50) Ethyl Alcohol (0.00) gm% Ketones (0.0-0.3) mM SARS-CoV-2 RNA (ROZINA) (NEGATIVE) Med Orders - Current: Current Medications Dextrose/Sodium Chloride (Dextrose 5%-Normal Saline) 1,000 mls @ 150 mls/hr IV ASDIRECTED VALDO Last Admin: 01/09/21 04:38 Dose: 150 mls/hr Documented by: Ceftriaxone Sodium 2 gm/ (Sodium Chloride) 100 mls @ 200 mls/hr IV Q24H VALDO Potassium Chloride 10 meq/ (Premix) 100 mls @ 100 mls/hr IV Q1H [facility] Stop: 01/09/21 11:59 Last Admin: 01/09/21 10:04 Dose: 100 mls/hr Documented by: Magnesium Sulfate 4 gm/ Premix 50 mls @ 12.5 mls/hr IV ONETIME ONE Stop: 01/09/21 11:45 Last Admin: 01/09/21 08:01 Dose: 12.5 mls/hr Documented by: Lorazepam (Lorazepam 2 Mg/Ml Sdv) 1 - 3 mg IVPUSH ASDIRECTED PRN; Protocol PRN Reason: Withdrawal Symptoms Last Admin: 01/09/21 05:45 Dose: 2 mg Documented by: Miscellaneous Information (Remove Nicotine Patch) 1 ea TRDERM DAILY [facility] Last Admin: 01/09/21 09:37 Dose: Not Given Documented by: Nicotine (Nicotine 21 Mg/24 Hr Patch) 21 mg TRDERM DAILY [facility] Ondansetron HCl (Ondansetron 4 Mg/2 Ml Sdv) 4 mg IVPUSH Q6HR PRN PRN Reason: Nausea/Vomiting Ondansetron HCl (Ondansetron 4 Mg Tab.Dis) 4 mg PO Q6H PRN PRN Reason: Nausea/Vomiting Discontinued Medications Dextrose/Sodium Chloride (Dextrose 5%-Normal Saline) 1,000 mls @ 500 mls/hr IV ASDIRECTED [facility] Last Infusion: 01/08/21 14:07 Dose: 500 mls/hr Documented by: Sodium Chloride (Normal Saline) 1,000 mls @ 999 mls/hr IV ASDIRECTED [facility] Last Admin: 01/08/21 15:40 Dose: 999 mls/hr Documented by: Potassium Chloride 10 meq/ (Premix) 100 mls @ 100 mls/hr IV Q1H [facility] Stop: 01/08/21 17:29 Last Admin: 01/08/21 17:33 Dose: 100 mls/hr Documented by: Ceftriaxone Sodium 2 gm/ (Sodium Chloride) 100 mls @ 200 mls/hr IV ONETIME ONE Stop: 01/08/21 15:55 Last Admin: 01/08/21 15:40 Dose: 200 mls/hr Documented by: Sodium Chloride (Normal Saline) 1,000 mls @ 999 mls/hr IV ASDIRECTED [facility] Last Admin: 01/08/21 17:46 Dose: 999 mls/hr Documented by: Sodium Chloride (Normal Saline) 1,000 mls @ 150 mls/hr IV ASDIRECTED [facility] Last Admin: 01/08/21 18:56 Dose: 150 mls/hr Documented by: Dextrose/Sodium Chloride (Dextrose 5%-Normal Saline) 1,000 mls @ 999 mls/hr IV ASDIRECTED [facility] Last Admin: 01/08/21 19:18 Dose: 999 mls/hr Documented by: Potassium Chloride 10 meq/ (Premix) 100 mls @ 100 mls/hr IV Q1H [facility] Stop: 01/08/21 23:59 Last Admin: 01/08/21 22:55 Dose: 100 mls/hr Documented by: Lorazepam (Lorazepam 2 Mg/Ml Sdv) 1 mg IV ONETIME ONE Stop: 01/08/21 16:40 Last Admin: 01/08/21 17:01 Dose: 1 mg Documented by: Lorazepam (Lorazepam 2 Mg/Ml Sdv) 1 mg IVPUSH ONETIME ONE Stop: 01/08/21 18:41 Last Admin: 01/08/21 18:52 Dose: 1 mg Documented by: Nicotine (Nicotine 21 Mg/24 Hr Patch) 21 mg TRDERM ONETIME ONE Stop: 01/09/21 04:46 Last Admin: 01/09/21 04:49 Dose: 21 mg Documented by: Thiamine HCl (Thiamine 200 Mg/2 Ml Mdv) 100 mg IVPUSH ONETIME ONE Stop: 01/08/21 16:43 Last Admin: 01/08/21 17:01 Dose: 100 mg Documented by: - Exam Quality Assessment: No: Supplemental Oxygen Urinary Catheter Total Time: 0Days 13Hours General: Alert, Oriented HEENT: Pupils Equal, Mucous Membr. Moist/[place] Neck: Supple Lungs: Clear to Auscultation, Normal Respiratory Effort Cardiovascular: Regular Rhythm, Tachycardia Extremities: Normal Inspection, Normal Range of Motion, Non-Tender, Pedal Edema Skin: Warm, Dry, Intact Physical Findings Comments:: Patient has a swollen, anasarca appearance to her. - Patient Data Lab Results Last 24 hrs: Laboratory Results - last 24 hr 01/08/21 01/08/21 01/08/21 Range/Units 09:14 13:45 13:46 WBC (3.98-10.04) K/mm3 RBC (3.98-5.22) M/mm3 Hgb (11.2-15.7) gm/dl Hct (34.1-44.9) % MCV (79.4-94.8) fl MCH (25.6-32.2) pg MCHC (32.2-35.5) g/dl RDW Std Deviation (36.4-46.3) fL Plt Count (182-369) K/mm3 MPV (9.4-12.3) fl Neut % (Auto) (34.0-71.1) % Lymph % (Auto) (19.3-51.7) % Mora % (Auto) (4.7-12.5) % Eos % (Auto) (0.7-5.8) Baso % (Auto) (0.1-1.2) % Neut # (Auto) (1.56-6.13) K/mm3 Lymph # (Auto) (1.18-3.74) K/mm3 [place] # (Auto) (0.24-0.36) K/mm3 Eos # (Auto) (0.04-0.36) K/mm3 Baso # (Auto) (0.01-0.08) K/mm3 Manual Slide Review PT (9.7-12.0) SECONDS INR APTT (21.7-31.4) SECONDS Puncture Site Lt radial ABG pH 7.47 H (7.35-7.45) ABG pCO2 24.3 L (35.0-45.0) mmHg ABG pO2 78.0 L (80.0-100.0) mmHg ABG HCO3 17.6 L (22.0-26.0) meq/L ABG O2 Saturation 96.1 (96.0-97.0) % ABG Base Excess -4.1 L (-2-2.0) O2 Delivery Device Room air Sodium (136-145) mEq/L Potassium (3.5-5.1) mEq/L Chloride (98-107) mEq/L Carbon Dioxide (21-32) mEq/L Anion Gap (5-15) BUN (7-18) mg/dL Creatinine (0.55-1.02) mg/dL Est Cr Clr Drug Dosing Estimated GFR (MDRD) (>60) mL/min BUN/Creatinine Ratio (14-18) Glucose (70-99) mg/dL POC Glucose 132 H (70-99) mg/dL Lactic Acid (0.4-2.0) mmol/L Calcium (8.5-10.1) mg/dL Phosphorus (2.6-4.7) mg/dL Magnesium (1.8-2.4) mg/dL Total Bilirubin (0.2-1.0) mg/dL GGT (5-55) U/L AST (15-37) U/L ALT (14-59) U/L Alkaline Phosphatase (46-116) U/L Ammonia (11-32) umol/L Creatine Kinase 149 (26-192) U/L Troponin I (0.00-0.056) ng/mL C-Reactive Protein (<1.0) mg/dL NT-Pro-B Natriuret Pep (0-125) pg/mL Total Protein (6.4-8.2) g/dl Albumin (3.4-5.0) g/dl Globulin gm/dL Albumin/Globulin Ratio (1-2) Lipase (73-393) U/L HCG, Qual (NEGATIVE) Urine Color (Yellow) Urine Appearance (Clear) Urine pH (5.0-8.0) Ur Specific [place] (1.005-1.030) Urine Protein (Negative) Urine Glucose (UA) (Negative) Urine Ketones (Negative) Urine Occult Blood (Negative) Urine Nitrite (Negative) Urine Bilirubin (Negative) Urine Urobilinogen (0.2-1.0) Ur Leukocyte Esterase (Negative) U Hyaline Cast (Auto) (0-5) /lpf Urine RBC (0-5) /hpf Urine WBC (0-5) /hpf Ur Squamous Epith Cells (0-5) /hpf Urine Bacteria (FEW) /hpf Urine Mucus (FEW) /hpf Urine Opiates Screen (FGFWBK=001) Ur Buprenorphine Scrn (CUTOFF=10) Ur Oxycodone Screen (EGB5NZ=081) Urine Methadone Screen (RZCUHK=812) Ur Propoxyphene Screen (IIDRJC=134) Ur Barbiturates Screen (OKAJSM=939) Ur Tricyclics Screen (JYTXIN=302) Ur Phencyclidine Scrn (CUTOFF=25) Ur Amphetamine Screen (ECQQPD=358) U Methamphetamines Scrn (MJWTUQ=849) U Benzodiazepines Scrn (IGBWCU=955) U Cocaine Metab Screen (NHBBDJ=361) U Marijuana (THC) Screen (CUTOFF=50) Ethyl Alcohol (0.00) gm% Ketones (0.0-0.3) mM SARS-CoV-2 RNA (ROZINA) (NEGATIVE) 01/08/21 01/08/21 01/08/21 Range/Units 13:46 13:47 13:50 WBC (3.98-10.04) K/mm3 RBC (3.98-5.22) M/mm3 Hgb (11.2-15.7) gm/dl Hct (34.1-44.9) % MCV (79.4-94.8) fl MCH (25.6-32.2) pg MCHC (32.2-35.5) g/dl RDW Std Deviation (36.4-46.3) fL Plt Count (182-369) K/mm3 MPV (9.4-12.3) fl Neut % (Auto) (34.0-71.1) % Lymph % (Auto) (19.3-51.7) % Mora % (Auto) (4.7-12.5) % Eos % (Auto) (0.7-5.8) Baso % (Auto) (0.1-1.2) % Neut # (Auto) (1.56-6.13) K/mm3 Lymph # (Auto) (1.18-3.74) K/mm3 [place] # (Auto) (0.24-0.36) K/mm3 Eos # (Auto) (0.04-0.36) K/mm3 Baso # (Auto) (0.01-0.08) K/mm3 Manual Slide Review PT 12.3 H (9.7-12.0) SECONDS INR 1.15 APTT 22.6 (21.7-31.4) SECONDS Puncture Site ABG pH (7.35-7.45) ABG pCO2 (35.0-45.0) mmHg ABG pO2 (80.0-100.0) mmHg ABG HCO3 (22.0-26.0) meq/L ABG O2 Saturation (96.0-97.0) % ABG Base Excess (-2-2.0) O2 Delivery Device Sodium (136-145) mEq/L Potassium (3.5-5.1) mEq/L Chloride (98-107) mEq/L Carbon Dioxide (21-32) mEq/L Anion Gap (5-15) BUN (7-18) mg/dL Creatinine (0.55-1.02) mg/dL Est Cr Clr Drug Dosing Estimated GFR (MDRD) (>60) mL/min BUN/Creatinine Ratio (14-18) Glucose (70-99) mg/dL POC Glucose (70-99) mg/dL Lactic Acid (0.4-2.0) mmol/L Calcium (8.5-10.1) mg/dL Phosphorus (2.6-4.7) mg/dL Magnesium (1.8-2.4) mg/dL Total Bilirubin (0.2-1.0) mg/dL GGT (5-55) U/L AST (15-37) U/L ALT (14-59) U/L Alkaline Phosphatase (46-116) U/L Ammonia (11-32) umol/L Creatine Kinase (26-192) U/L Troponin I (0.00-0.056) ng/mL C-Reactive Protein (<1.0) mg/dL NT-Pro-B Natriuret Pep (0-125) pg/mL Total Protein (6.4-8.2) g/dl Albumin (3.4-5.0) g/dl Globulin gm/dL Albumin/Globulin Ratio (1-2) Lipase (73-393) U/L HCG, Qual (NEGATIVE) Urine Color (Yellow) Urine Appearance (Clear) Urine pH (5.0-8.0) Ur Specific [place] (1.005-1.030) Urine Protein (Negative) Urine Glucose (UA) (Negative) Urine Ketones (Negative) Urine Occult Blood (Negative) Urine Nitrite (Negative) Urine Bilirubin (Negative) Urine Urobilinogen (0.2-1.0) Ur Leukocyte Esterase (Negative) U Hyaline Cast (Auto) (0-5) /lpf Urine RBC (0-5) /hpf Urine WBC (0-5) /hpf Ur Squamous Epith Cells (0-5) /hpf Urine Bacteria (FEW) /hpf Urine Mucus (FEW) /hpf Urine Opiates Screen (KGNVAJ=189) Ur Buprenorphine Scrn (CUTOFF=10) Ur Oxycodone Screen (MYT1TJ=368) Urine Methadone Screen (MIZEJJ=543) Ur Propoxyphene Screen (ZNDRIR=429) Ur Barbiturates Screen (MMPMMZ=707) Ur Tricyclics Screen (YHFEJF=437) Ur Phencyclidine Scrn (CUTOFF=25) Ur Amphetamine Screen (PWEKKJ=687) U Methamphetamines Scrn (QCBJVK=471) U Benzodiazepines Scrn (PVRNHY=834) U Cocaine Metab Screen (MZRGKH=351) U Marijuana (THC) Screen (CUTOFF=50) Ethyl Alcohol (0.00) gm% Ketones 2.46 (0.0-0.3) mM SARS-CoV-2 RNA (ROZINA) Negative (NEGATIVE) 01/08/21 01/08/21 01/08/21 Range/Units 13:50 13:55 14:06 WBC 15.56 H (3.98-10.04) K/mm3 RBC 4.29 (3.98-5.22) M/mm3 Hgb 15.3 (11.2-15.7) gm/dl Hct 44.4 (34.1-44.9) % MCV 103.5 H D (79.4-94.8) fl MCH 35.7 H (25.6-32.2) pg MCHC 34.5 (32.2-35.5) g/dl RDW Std Deviation 55.1 H (36.4-46.3) fL Plt Count 390 H D (182-369) K/mm3 MPV 11.2 (9.4-12.3) fl Neut % (Auto) 77.1 H (34.0-71.1) % Lymph % (Auto) 13.6 L (19.3-51.7) % [place] % (Auto) 7.3 (4.7-12.5) % Eos % (Auto) 0.2 L (0.7-5.8) Baso % (Auto) 0.9 (0.1-1.2) % Neut # (Auto) 11.99 H (1.56-6.13) K/mm3 Lymph # (Auto) 2.12 (1.18-3.74) K/mm3 [place] # (Auto) 1.14 H (0.24-0.36) K/mm3 Eos # (Auto) 0.03 L (0.04-0.36) K/mm3 Baso # (Auto) 0.14 H (0.01-0.08) K/mm3 Manual Slide Review Abnormal smear PT (9.7-12.0) SECONDS INR APTT (21.7-31.4) SECONDS Puncture Site ABG pH (7.35-7.45) ABG pCO2 (35.0-45.0) mmHg ABG pO2 (80.0-100.0) mmHg ABG HCO3 (22.0-26.0) meq/L ABG O2 Saturation (96.0-97.0) % ABG Base Excess (-2-2.0) O2 Delivery Device Sodium (136-145) mEq/L Potassium (3.5-5.1) mEq/L Chloride (98-107) mEq/L Carbon Dioxide (21-32) mEq/L Anion Gap (5-15) BUN (7-18) mg/dL Creatinine (0.55-1.02) mg/dL Est Cr Clr Drug Dosing Estimated GFR (MDRD) (>60) mL/min BUN/Creatinine Ratio (14-18) Glucose (70-99) mg/dL POC Glucose (70-99) mg/dL Lactic Acid (0.4-2.0) mmol/L Calcium (8.5-10.1) mg/dL Phosphorus (2.6-4.7) mg/dL Magnesium (1.8-2.4) mg/dL Total Bilirubin (0.2-1.0) mg/dL GGT (5-55) U/L AST (15-37) U/L ALT (14-59) U/L Alkaline Phosphatase (46-116) U/L Ammonia (11-32) umol/L Creatine Kinase (26-192) U/L Troponin I (0.00-0.056) ng/mL C-Reactive Protein (<1.0) mg/dL NT-Pro-B Natriuret Pep (0-125) pg/mL Total Protein (6.4-8.2) g/dl Albumin (3.4-5.0) g/dl Globulin gm/dL Albumin/Globulin Ratio (1-2) Lipase (73-393) U/L HCG, Qual (NEGATIVE) Urine Color [place] H (Yellow) Urine Appearance Cloudy H (Clear) Urine pH 5.5 (5.0-8.0) Ur Specific [place] 1.025 (1.005-1.030) Urine Protein 1+ H (Negative) Urine Glucose (UA) Negative (Negative) Urine Ketones 1+ H (Negative) Urine Occult Blood Negative (Negative) Urine Nitrite Negative (Negative) Urine Bilirubin 3+ H (Negative) Urine Urobilinogen >=8.0 H (0.2-1.0) Ur Leukocyte Esterase Negative (Negative) U Hyaline Cast (Auto) 10-20 H (0-5) /lpf Urine RBC 0-5 (0-5) /hpf Urine WBC 5-10 H (0-5) /hpf Ur Squamous Epith Cells 0-5 (0-5) /hpf Urine Bacteria Many H (FEW) /hpf Urine Mucus Few (FEW) /hpf Urine Opiates Screen Negative (MORYCV=519) Ur Buprenorphine Scrn Negative (CUTOFF=10) Ur Oxycodone Screen Negative (LSA5GS=587) Urine Methadone Screen Negative (CFFMLZ=196) Ur Propoxyphene Screen Negative (RIMQRU=769) Ur Barbiturates Screen Negative (VDVKBW=550) Ur Tricyclics Screen Negative (TAFCAV=289) Ur Phencyclidine Scrn Negative (CUTOFF=25) Ur Amphetamine Screen Negative (NUNSMV=669) U Methamphetamines Scrn Negative (FGHWYC=815) U Benzodiazepines Scrn Negative (QDIDER=003) U Cocaine Metab Screen Negative (VIABKK=306) U Marijuana (THC) Screen Negative (CUTOFF=50) Ethyl Alcohol (0.00) gm% Ketones (0.0-0.3) mM SARS-CoV-2 RNA (ROZINA) (NEGATIVE) 01/08/21 01/08/21 01/08/21 Range/Units 14:10 14:10 14:10 WBC (3.98-10.04) K/mm3 RBC (3.98-5.22) M/mm3 Hgb (11.2-15.7) gm/dl Hct (34.1-44.9) % MCV (79.4-94.8) fl MCH (25.6-32.2) pg MCHC (32.2-35.5) g/dl RDW Std Deviation (36.4-46.3) fL Plt Count (182-369) K/mm3 MPV (9.4-12.3) fl Neut % (Auto) (34.0-71.1) % Lymph % (Auto) (19.3-51.7) % [place] % (Auto) (4.7-12.5) % Eos % (Auto) (0.7-5.8) Baso % (Auto) (0.1-1.2) % Neut # (Auto) (1.56-6.13) K/mm3 Lymph # (Auto) (1.18-3.74) K/mm3 [place] # (Auto) (0.24-0.36) K/mm3 Eos # (Auto) (0.04-0.36) K/mm3 Baso # (Auto) (0.01-0.08) K/mm3 Manual Slide Review PT (9.7-12.0) SECONDS INR APTT (21.7-31.4) SECONDS Puncture Site ABG pH (7.35-7.45) ABG pCO2 (35.0-45.0) mmHg ABG pO2 (80.0-100.0) mmHg ABG HCO3 (22.0-26.0) meq/L ABG O2 Saturation (96.0-97.0) % ABG Base Excess (-2-2.0) O2 Delivery Device Sodium 136 (136-145) mEq/L Potassium 3.3 L (3.5-5.1) mEq/L Chloride 93 L D (98-107) mEq/L Carbon Dioxide 22 (21-32) mEq/L Anion Gap 24.3 H (5-15) BUN 26 H (7-18) mg/dL Creatinine 1.0 (0.55-1.02) mg/dL Est Cr Clr Drug Dosing TNP Estimated GFR (MDRD) > 60 (>60) mL/min BUN/Creatinine Ratio 26.0 H (14-18) Glucose 139 H (70-99) mg/dL POC Glucose (70-99) mg/dL Lactic Acid (0.4-2.0) mmol/L Calcium 9.0 (8.5-10.1) mg/dL Phosphorus (2.6-4.7) mg/dL Magnesium 2.4 (1.8-2.4) mg/dL Total Bilirubin 4.9 H (0.2-1.0) mg/dL GGT 494 H (5-55) U/L AST 371 H (15-37) U/L ALT 256 H (14-59) U/L Alkaline Phosphatase 156 H (46-116) U/L Ammonia (11-32) umol/L Creatine Kinase (26-192) U/L Troponin I 0.026 (0.00-0.056) ng/mL C-Reactive Protein 1.9 H* (<1.0) mg/dL NT-Pro-B Natriuret Pep 847 H (0-125) pg/mL Total Protein 6.9 (6.4-8.2) g/dl Albumin 3.1 L (3.4-5.0) g/dl Globulin 3.8 gm/dL Albumin/Globulin Ratio 0.8 L (1-2) Lipase 110 (73-393) U/L HCG, Qual Negative (NEGATIVE) Urine Color (Yellow) Urine Appearance (Clear) Urine pH (5.0-8.0) Ur Specific [place] (1.005-1.030) Urine Protein (Negative) Urine Glucose (UA) (Negative) Urine Ketones (Negative) Urine Occult Blood (Negative) Urine Nitrite (Negative) Urine Bilirubin (Negative) Urine Urobilinogen (0.2-1.0) Ur Leukocyte Esterase (Negative) U Hyaline Cast (Auto) (0-5) /lpf Urine RBC (0-5) /hpf Urine WBC (0-5) /hpf Ur Squamous Epith Cells (0-5) /hpf Urine Bacteria (FEW) /hpf Urine Mucus (FEW) /hpf Urine Opiates Screen (BJWDLE=227) Ur Buprenorphine Scrn (CUTOFF=10) Ur Oxycodone Screen (PQW9EF=162) Urine Methadone Screen (MZCTHJ=026) Ur Propoxyphene Screen (SPBWOL=139) Ur Barbiturates Screen (RUYNDI=624) Ur Tricyclics Screen (RJDYCS=857) Ur Phencyclidine Scrn (CUTOFF=25) Ur Amphetamine Screen (CERQUS=234) U Methamphetamines Scrn (UJJWAC=722) U Benzodiazepines Scrn (UEYAKY=727) U Cocaine Metab Screen (LZHXMX=467) U Marijuana (THC) Screen (CUTOFF=50) Ethyl Alcohol 0.00 (0.00) gm% Ketones (0.0-0.3) mM SARS-CoV-2 RNA (ROZINA) (NEGATIVE) 01/08/21 01/08/21 01/08/21 Range/Units 14:16 14:16 18:05 WBC (3.98-10.04) K/mm3 RBC (3.98-5.22) M/mm3 Hgb (11.2-15.7) gm/dl Hct (34.1-44.9) % MCV (79.4-94.8) fl MCH (25.6-32.2) pg MCHC (32.2-35.5) g/dl RDW Std Deviation (36.4-46.3) fL Plt Count (182-369) K/mm3 MPV (9.4-12.3) fl Neut % (Auto) (34.0-71.1) % Lymph % (Auto) (19.3-51.7) % [place] % (Auto) (4.7-12.5) % Eos % (Auto) (0.7-5.8) Baso % (Auto) (0.1-1.2) % Neut # (Auto) (1.56-6.13) K/mm3 Lymph # (Auto) (1.18-3.74) K/mm3 [place] # (Auto) (0.24-0.36) K/mm3 Eos # (Auto) (0.04-0.36) K/mm3 Baso # (Auto) (0.01-0.08) K/mm3 Manual Slide Review PT (9.7-12.0) SECONDS INR APTT (21.7-31.4) SECONDS Puncture Site ABG pH (7.35-7.45) ABG pCO2 (35.0-45.0) mmHg ABG pO2 (80.0-100.0) mmHg ABG HCO3 (22.0-26.0) meq/L ABG O2 Saturation (96.0-97.0) % ABG Base Excess (-2-2.0) O2 Delivery Device Sodium (136-145) mEq/L Potassium (3.5-5.1) mEq/L Chloride (98-107) mEq/L Carbon Dioxide (21-32) mEq/L Anion Gap (5-15) BUN (7-18) mg/dL Creatinine (0.55-1.02) mg/dL Est Cr Clr Drug Dosing Estimated GFR (MDRD) (>60) mL/min BUN/Creatinine Ratio (14-18) Glucose (70-99) mg/dL POC Glucose (70-99) mg/dL Lactic Acid 10.7 H* 8.3 H* (0.4-2.0) mmol/L Calcium (8.5-10.1) mg/dL Phosphorus (2.6-4.7) mg/dL Magnesium (1.8-2.4) mg/dL Total Bilirubin (0.2-1.0) mg/dL GGT (5-55) U/L AST (15-37) U/L ALT (14-59) U/L Alkaline Phosphatase (46-116) U/L Ammonia 15 (11-32) umol/L Creatine Kinase (26-192) U/L Troponin I (0.00-0.056) ng/mL C-Reactive Protein (<1.0) mg/dL NT-Pro-B Natriuret Pep (0-125) pg/mL Total Protein (6.4-8.2) g/dl Albumin (3.4-5.0) g/dl Globulin gm/dL Albumin/Globulin Ratio (1-2) Lipase (73-393) U/L HCG, Qual (NEGATIVE) Urine Color (Yellow) Urine Appearance (Clear) Urine pH (5.0-8.0) Ur Specific [place] (1.005-1.030) Urine Protein (Negative) Urine Glucose (UA) (Negative) Urine Ketones (Negative) Urine Occult Blood (Negative) Urine Nitrite (Negative) Urine Bilirubin (Negative) Urine Urobilinogen (0.2-1.0) Ur Leukocyte Esterase (Negative) U Hyaline Cast (Auto) (0-5) /lpf Urine RBC (0-5) /hpf Urine WBC (0-5) /hpf Ur Squamous Epith Cells (0-5) /hpf Urine Bacteria (FEW) /hpf Urine Mucus (FEW) /hpf Urine Opiates Screen (SSJSTC=639) Ur Buprenorphine Scrn (CUTOFF=10) Ur Oxycodone Screen (YIG2JL=555) Urine Methadone Screen (MDMIHV=374) Ur Propoxyphene Screen (JKNRYK=734) Ur Barbiturates Screen (JDIQMZ=786) Ur Tricyclics Screen (PSDYRM=395) Ur Phencyclidine Scrn (CUTOFF=25) Ur Amphetamine Screen (FEKCIS=931) U Methamphetamines Scrn (BVJMZJ=061) U Benzodiazepines Scrn (YNSGYU=552) U Cocaine Metab Screen (CCTPTQ=333) U Marijuana (THC) Screen (CUTOFF=50) Ethyl Alcohol (0.00) gm% Ketones (0.0-0.3) mM SARS-CoV-2 RNA (ROZINA) (NEGATIVE) 01/08/21 01/08/21 01/09/21 Range/Units 19:05 21:00 05:30 WBC (3.98-10.04) K/mm3 RBC (3.98-5.22) M/mm3 Hgb (11.2-15.7) gm/dl Hct (34.1-44.9) % MCV (79.4-94.8) fl MCH (25.6-32.2) pg MCHC (32.2-35.5) g/dl RDW Std Deviation (36.4-46.3) fL Plt Count (182-369) K/mm3 MPV (9.4-12.3) fl Neut % (Auto) (34.0-71.1) % Lymph % (Auto) (19.3-51.7) % [place] % (Auto) (4.7-12.5) % Eos % (Auto) (0.7-5.8) Baso % (Auto) (0.1-1.2) % Neut # (Auto) (1.56-6.13) K/mm3 Lymph # (Auto) (1.18-3.74) K/mm3 [place]a # (Auto) (0.24-0.36) K/mm3 Eos # (Auto) (0.04-0.36) K/mm3 Baso # (Auto) (0.01-0.08) K/mm3 Manual Slide Review PT (9.7-12.0) SECONDS INR APTT (21.7-31.4) SECONDS Puncture Site ABG pH (7.35-7.45) ABG pCO2 (35.0-45.0) mmHg ABG pO2 (80.0-100.0) mmHg ABG HCO3 (22.0-26.0) meq/L ABG O2 Saturation (96.0-97.0) % ABG Base Excess (-2-2.0) O2 Delivery Device Sodium (136-145) mEq/L Potassium (3.5-5.1) mEq/L Chloride (98-107) mEq/L Carbon Dioxide (21-32) mEq/L Anion Gap (5-15) BUN (7-18) mg/dL Creatinine (0.55-1.02) mg/dL Est Cr Clr Drug Dosing Estimated GFR (MDRD) (>60) mL/min BUN/Creatinine Ratio (14-18) Glucose (70-99) mg/dL POC Glucose 88 (70-99) mg/dL Lactic Acid 6.3 H* 3.4 H* (0.4-2.0) mmol/L Calcium (8.5-10.1) mg/dL Phosphorus (2.6-4.7) mg/dL Magnesium (1.8-2.4) mg/dL Total Bilirubin (0.2-1.0) mg/dL GGT (5-55) U/L AST (15-37) U/L ALT (14-59) U/L Alkaline Phosphatase (46-116) U/L Ammonia (11-32) umol/L Creatine Kinase (26-192) U/L Troponin I (0.00-0.056) ng/mL C-Reactive Protein (<1.0) mg/dL NT-Pro-B Natriuret Pep (0-125) pg/mL Total Protein (6.4-8.2) g/dl Albumin (3.4-5.0) g/dl Globulin gm/dL Albumin/Globulin Ratio (1-2) Lipase (73-393) U/L HCG, Qual (NEGATIVE) Urine Color (Yellow) Urine Appearance (Clear) Urine pH (5.0-8.0) Ur Specific [place] (1.005-1.030) Urine Protein (Negative) Urine Glucose (UA) (Negative) Urine Ketones (Negative) Urine Occult Blood (Negative) Urine Nitrite (Negative) Urine Bilirubin (Negative) Urine Urobilinogen (0.2-1.0) Ur Leukocyte Esterase (Negative) U Hyaline Cast (Auto) (0-5) /lpf Urine RBC (0-5) /hpf Urine WBC (0-5) /hpf Ur Squamous Epith Cells (0-5) /hpf Urine Bacteria (FEW) /hpf Urine Mucus (FEW) /hpf Urine Opiates Screen (DHFPSJ=466) Ur Buprenorphine Scrn (CUTOFF=10) Ur Oxycodone Screen (HGB7HF=675) Urine Methadone Screen (OQVCED=187) Ur Propoxyphene Screen (RATUJV=061) Ur Barbiturates Screen (RDMRYO=312) Ur Tricyclics Screen (RJYREP=176) Ur Phencyclidine Scrn (CUTOFF=25) Ur Amphetamine Screen (KUFBHH=266) U Methamphetamines Scrn (MWVSKJ=600) U Benzodiazepines Scrn (ZCTYVY=456) U Cocaine Metab Screen (OTGQVD=264) U Marijuana (THC) Screen (CUTOFF=50) Ethyl Alcohol (0.00) gm% Ketones (0.0-0.3) mM SARS-CoV-2 RNA (ROZINA) (NEGATIVE) 01/09/21 01/09/21 01/09/21 Range/Units 05:30 05:30 08:27 WBC 8.92 (3.98-10.04) K/mm3 RBC 2.78 L (3.98-5.22) M/mm3 Hgb 9.8 L D (11.2-15.7) gm/dl Hct 29.4 L (34.1-44.9) % MCV 105.8 H (79.4-94.8) fl MCH 35.3 H (25.6-32.2) pg MCHC 33.3 (32.2-35.5) g/dl RDW Std Deviation 55.7 H (36.4-46.3) fL Plt Count 283 D (182-369) K/mm3 MPV 10.4 (9.4-12.3) fl Neut % (Auto) 68.3 (34.0-71.1) % Lymph % (Auto) 20.9 (19.3-51.7) % Mora % (Auto) 8.3 (4.7-12.5) % Eos % (Auto) 1.5 (0.7-5.8) Baso % (Auto) 0.7 (0.1-1.2) % Neut # (Auto) 6.10 (1.56-6.13) K/mm3 Lymph # (Auto) 1.86 (1.18-3.74) K/mm3 Mora # (Auto) 0.74 H (0.24-0.36) K/mm3 Eos # (Auto) 0.13 (0.04-0.36) K/mm3 Baso # (Auto) 0.06 (0.01-0.08) K/mm3 Manual Slide Review PT (9.7-12.0) SECONDS INR APTT (21.7-31.4) SECONDS Puncture Site ABG pH (7.35-7.45) ABG pCO2 (35.0-45.0) mmHg ABG pO2 (80.0-100.0) mmHg ABG HCO3 (22.0-26.0) meq/L ABG O2 Saturation (96.0-97.0) % ABG Base Excess (-2-2.0) O2 Delivery Device Sodium 141 (136-145) mEq/L Potassium 2.9 L (3.5-5.1) mEq/L Chloride 107 D (98-107) mEq/L Carbon Dioxide 23 (21-32) mEq/L Anion Gap 13.9 (5-15) BUN 12 (7-18) mg/dL Creatinine 0.6 (0.55-1.02) mg/dL Est Cr Clr Drug Dosing 111.39 Estimated GFR (MDRD) > 60 (>60) mL/min BUN/Creatinine Ratio 20.0 H (14-18) Glucose 97 (70-99) mg/dL POC Glucose (70-99) mg/dL Lactic Acid 3.8 H* (0.4-2.0) mmol/L Calcium 6.9 L D (8.5-10.1) mg/dL Phosphorus (2.6-4.7) mg/dL Magnesium 1.6 L (1.8-2.4) mg/dL Total Bilirubin (0.2-1.0) mg/dL GGT (5-55) U/L AST (15-37) U/L ALT (14-59) U/L Alkaline Phosphatase (46-116) U/L Ammonia (11-32) umol/L Creatine Kinase (26-192) U/L Troponin I (0.00-0.056) ng/mL C-Reactive Protein (<1.0) mg/dL NT-Pro-B Natriuret Pep (0-125) pg/mL Total Protein (6.4-8.2) g/dl Albumin (3.4-5.0) g/dl Globulin gm/dL Albumin/Globulin Ratio (1-2) Lipase (73-393) U/L HCG, Qual (NEGATIVE) Urine Color (Yellow) Urine Appearance (Clear) Urine pH (5.0-8.0) Ur Specific [place] (1.005-1.030) Urine Protein (Negative) Urine Glucose (UA) (Negative) Urine Ketones (Negative) Urine Occult Blood (Negative) Urine Nitrite (Negative) Urine Bilirubin (Negative) Urine Urobilinogen (0.2-1.0) Ur Leukocyte Esterase (Negative) U Hyaline Cast (Auto) (0-5) /lpf Urine RBC (0-5) /hpf Urine WBC (0-5) /hpf Ur Squamous Epith Cells (0-5) /hpf Urine Bacteria (FEW) /hpf Urine Mucus (FEW) /hpf Urine Opiates Screen (AEBCSY=763) Ur Buprenorphine Scrn (CUTOFF=10) Ur Oxycodone Screen (ZBS5RR=385) Urine Methadone Screen (MPLBGE=901) Ur Propoxyphene Screen (LKTGCW=242) Ur Barbiturates Screen (BWGSVY=502) Ur Tricyclics Screen (GUTRUN=617) Ur Phencyclidine Scrn (CUTOFF=25) Ur Amphetamine Screen (PCYFPC=089) U Methamphetamines Scrn (IIVQJS=995) U Benzodiazepines Scrn (EWKSEC=645) U Cocaine Metab Screen (QDBROE=082) U Marijuana (THC) Screen (CUTOFF=50) Ethyl Alcohol (0.00) gm% Ketones (0.0-0.3) mM SARS-CoV-2 RNA (ROZINA) (NEGATIVE) 01/09/21 01/09/21 Range/Units 09:10 09:10 WBC 8.19 (3.98-10.04) K/mm3 RBC 2.55 L (3.98-5.22) M/mm3 Hgb 9.0 L (11.2-15.7) gm/dl Hct 27.1 L (34.1-44.9) % MCV 106.3 H (79.4-94.8) fl MCH 35.3 H (25.6-32.2) pg MCHC 33.2 (32.2-35.5) g/dl RDW Std Deviation 55.7 H (36.4-46.3) fL Plt Count 271 (182-369) K/mm3 MPV 10.4 (9.4-12.3) fl Neut % (Auto) 65.2 (34.0-71.1) % Lymph % (Auto) 23.9 (19.3-51.7) % Mora % (Auto) 7.8 (4.7-12.5) % Eos % (Auto) 2.0 (0.7-5.8) Baso % (Auto) 0.7 (0.1-1.2) % Neut # (Auto) 5.34 (1.56-6.13) K/mm3 Lymph # (Auto) 1.96 (1.18-3.74) K/mm3 [place] # (Auto) 0.64 H (0.24-0.36) K/mm3 Eos # (Auto) 0.16 (0.04-0.36) K/mm3 Baso # (Auto) 0.06 (0.01-0.08) K/mm3 Manual Slide Review PT (9.7-12.0) SECONDS INR APTT (21.7-31.4) SECONDS Puncture Site ABG pH (7.35-7.45) ABG pCO2 (35.0-45.0) mmHg ABG pO2 (80.0-100.0) mmHg ABG HCO3 (22.0-26.0) meq/L ABG O2 Saturation (96.0-97.0) % ABG Base Excess (-2-2.0) O2 Delivery Device Sodium 141 (136-145) mEq/L Potassium 3.0 L (3.5-5.1) mEq/L Chloride 108 H (98-107) mEq/L Carbon Dioxide 23 (21-32) mEq/L Anion Gap 13.0 (5-15) BUN 11 (7-18) mg/dL Creatinine 0.6 (0.55-1.02) mg/dL Est Cr Clr Drug Dosing 111.39 Estimated GFR (MDRD) > 60 (>60) mL/min BUN/Creatinine Ratio 18.3 H (14-18) Glucose 91 (70-99) mg/dL POC Glucose (70-99) mg/dL Lactic Acid (0.4-2.0) mmol/L Calcium 6.8 L (8.5-10.1) mg/dL Phosphorus 1.4 L (2.6-4.7) mg/dL Magnesium (1.8-2.4) mg/dL Total Bilirubin 2.2 H (0.2-1.0) mg/dL GGT (5-55) U/L AST 283 H (15-37) U/L ALT 150 H (14-59) U/L Alkaline Phosphatase 85 (46-116) U/L Ammonia (11-32) umol/L Creatine Kinase (26-192) U/L Troponin I (0.00-0.056) ng/mL C-Reactive Protein (<1.0) mg/dL NT-Pro-B Natriuret Pep (0-125) pg/mL Total Protein 4.2 L (6.4-8.2) g/dl Albumin 1.8 L (3.4-5.0) g/dl Globulin 2.4 gm/dL Albumin/Globulin Ratio 0.8 L (1-2) Lipase (73-393) U/L HCG, Qual (NEGATIVE) Urine Color (Yellow) Urine Appearance (Clear) Urine pH (5.0-8.0) Ur Specific [place] (1.005-1.030) Urine Protein (Negative) Urine Glucose (UA) (Negative) Urine Ketones (Negative) Urine Occult Blood (Negative) Urine Nitrite (Negative) Urine Bilirubin (Negative) Urine Urobilinogen (0.2-1.0) Ur Leukocyte Esterase (Negative) U Hyaline Cast (Auto) (0-5) /lpf Urine RBC (0-5) /hpf Urine WBC (0-5) /hpf Ur Squamous Epith Cells (0-5) /hpf Urine Bacteria (FEW) /hpf Urine Mucus (FEW) /hpf Urine Opiates Screen (PNUQYT=914) Ur Buprenorphine Scrn (CUTOFF=10) Ur Oxycodone Screen (XGO1IT=874) Urine Methadone Screen (MIZOGB=366) Ur Propoxyphene Screen (LOGWKL=106) Ur Barbiturates Screen (YAEQLI=226) Ur Tricyclics Screen (VAQMDV=899) Ur Phencyclidine Scrn (CUTOFF=25) Ur Amphetamine Screen (QUSOQC=684) U Methamphetamines Scrn (HYCFFQ=200) U Benzodiazepines Scrn (SOKRSS=416) U Cocaine Metab Screen (RSLWLY=739) U Marijuana (THC) Screen (CUTOFF=50) Ethyl Alcohol (0.00) gm% Ketones (0.0-0.3) mM SARS-CoV-2 RNA (ROZINA) (NEGATIVE) Result Diagrams: 01/09/21 09:10 01/09/21 09:10 Sepsis Event Note - Evaluation Sepsis Screening Result: Severe Sepsis Risk - Focused Exam Vital Signs: Vital Signs Temp Pulse Resp BP Pulse Ox 01/09/21 08:17 98.2 F 20 01/09/21 08:01 19 106/76 99 01/09/21 08:00 22 H 01/09/21 07:00 19 98 01/09/21 06:00 22 H 01/09/21 05:00 109 H 17 93 L 01/09/21 04:01 114 H 16 100 01/09/21 04:00 97 F 114 H 13 120/88 100 01/09/21 03:59 110 H 16 97 01/09/21 03:00 20 01/09/21 02:00 119 H 20 95 01/09/21 01:00 113 H 21 H 94 L 01/09/21 00:29 118 H 19 111/78 97 01/09/21 00:28 108 H 16 78 L 01/09/21 00:01 112 H 18 99 01/08/21 23:59 114 H 19 96 - Problem List & Annotations (1) Hypoalbuminemia due to protein-calorie malnutrition SNOMED Code(s): 70972853933062 Code(s): E88.09 - OTH DISORDERS OF PLASMA-PROTEIN METABOLISM, NEC; E46 - UNSPECIFIED PROTEIN-CALORIE MALNUTRITION Status: Acute Current Visit: Yes (2) Severe protein-calorie malnutrition (Ascencio: less than 60% of standard weight) SNOMED Code(s): 406325631 Code(s): E43 - UNSPECIFIED SEVERE PROTEIN-CALORIE MALNUTRITION Status: Acute Current Visit: Yes (3) Alcohol withdrawal syndrome SNOMED Code(s): 952411587 Code(s): F10.239 - ALCOHOL DEPENDENCE WITH WITHDRAWAL, UNSPECIFIED Status: Acute Current Visit: Yes (4) Lactic acid acidosis SNOMED Code(s): 79441425 Code(s): E87.2 - ACIDOSIS Status: Resolved Priority: High Current Visit : Yes Onset Date: ~01/08/21 (5) Liver disease, alcoholic SNOMED Code(s): 24557516 Code(s): K70.9 - ALCOHOLIC LIVER DISEASE, UNSPECIFIED Status: Acute Priority: High Current Visit: Yes Onset Date: ~01/08/21 - Problem List Review Problem List Initiated/Reviewed/Updated: Yes - My Orders Last 24 Hours: My Active Orders 01/09/21 07:46 Magnesium Sulfate/Water [Magnesium Sulfate in Water 4 GM/50 ML] 4 gm Premix Bag 1 bag IV ONETIME 01/09/21 08:00 Potassium Chloride [KCl in Water 10 MEQ/100 ML] 10 meq Premix Bag 1 bag IV Q1H - Plan Plan:: 25-year-old female with chronic alcoholism found by brother after not arousing for 10 hours. Altered mental status/metabolic encephalopathy -Secondary to alcohol withdrawal with possible withdrawal seizure -No significant findings suggestive of severe infection, meningitis, sepsis -Significant lethargy secondary to Ativan this morning. -Improvement throughout the day. Alcoholism/alcohol withdrawal syndrome -Patient still has significant tremors and tachycardia from alcohol withdrawal -No Ativan needed throughout the day but her confusion appears to be worsening as the evening comes on. -Continue [facility] protocol -Recommend outpatient treatment for alcoholism Alcoholic liver disease -Improvement in bilirubin overnight to 2.2 -Improvement in liver enzymes -Significant hypoalbuminemia with diffuse anasarca -Given 2 doses of albumin today and encouraged oral intake -Advance diet as tolerated -Protein supplementation -Lactic acidosis likely secondary to liver disease. Lactic acid decreased to 3.6, but rebounded to 5. -Continue to monitor lactic acid, but less frequently. Next lactic acid will be in the morning. -Follow CMP daily or more often Macrocytic anemia -Significant drop in hemoglobin of 6 g with hydration. -Initial hemoglobin of 15 was likely secondary to hemoconcentration from poor oral intake over the last few days per her brother -Supplementation of thiamine, folic acid, and B12 -Encourage oral intake -Stop IV fluids Uncomplicated UTI -Continue Rocephin -Follow CBC -White count is normal Severe protein malnutrition with electrolyte abnormalities -Hypoalbuminemia, hypokalemia, hypomagnesemia, hypophosphatemia -Corrected calcium normal at 8.56 -Supplement and follow -Encourage oral intake VTE prophylaxis with Lovenox CODE STATUS: Full code
[2021-01-09] MEDS ORDERED: Cyanocobalamin (Vitamin B12) 1,000 MCG/ML SDV IM ONE (11:09)
[2021-01-09] MEDS: Thiamine 200 MG/2 ML MDV IVPUSH SCH (11:54)
[2021-01-09] MEDS ORDERED: Potassium Phosphates 15 MMOLE in Sodium Chloride 0.9% 250 ML IV ONE (12:00)
[2021-01-09] MEDS ORDERED: Furosemide 20 MG/2 ML VIAL IVPUSH ONE (16:20)
[2021-01-09] MEDS ORDERED: Potassium Chloride 20 MEQ Tab.ER PO ONE (16:22)
[2021-01-09] MEDS: cefTRIAXone 2 GM in Sodium Chloride 0.9% 100 ML IV SCH (16:39)
[2021-01-09] MEDS: Folic Acid 1 MG Tab PO SCH ×2 (19:37→20:40)
[2021-01-10] MEDS: LORazepam 1 MG Tab PO PRN ×7 (00:58→22:19)
[2021-01-10] MEDS: Nicotine 21 MG/24 Hr Patch TRDERM SCH (08:15)
[2021-01-10] MEDS: Enoxaparin 40 MG/0.4 ML Syringe SUBCUT SCH (08:15)
[2021-01-10] MEDS: Thiamine 200 MG/2 ML MDV IVPUSH SCH (08:15)
[2021-01-10] MEDS: Cyanocobalamin (Vitamin B12) 1,000 MCG Tab PO SCH (08:15)
--- NOTE | 2021-01-10 16:29 | PCM.PN ---
- General Info Date of Service: 01/10/21 Admission Dx/Problem (Free Text): etoh abuse /unresponsive. Subjective Update: Patient is more awake and alert this morning. She continues to have withdrawal and requiring Ativan. Urine output has been good. She has been afebrile. Functional Status: Reports: Pain Controlled - Review of Systems General: Reports: Weakness, Fatigue HEENT: Reports: No Symptoms Pulmonary: Reports: No Symptoms Cardiovascular: Reports: No Symptoms Gastrointestinal: Reports: No Symptoms - Patient Data Vitals - Most Recent: Last Vital Signs Temp 98.1 F 01/10/21 12:00 Pulse 132 H 01/10/21 12:00 Resp 16 01/10/21 12:00 BP 114/85 01/10/21 12:00 Pulse Ox 98 01/10/21 12:00 Weight - Most Recent: 122 lb 8 oz I&O - Last 24 Hours: Intake & Output 01/10/21 01/10/21 01/10/21 06:59 14:59 22:59 Intake Total 300 0 Output Total 925 400 Balance -625 -400 Lab Results Last 24 Hours: Laboratory Results - last 24 hr 01/09/21 01/10/21 01/10/21 Range/Units 18:25 05:20 05:20 WBC 8.49 (3.98-10.04) K/mm3 RBC 2.54 L (3.98-5.22) M/mm3 Hgb 8.9 L (11.2-15.7) gm/dl Hct 27.3 L (34.1-44.9) % MCV 107.5 H (79.4-94.8) fl MCH 35.0 H (25.6-32.2) pg MCHC 32.6 (32.2-35.5) g/dl RDW Std Deviation 56.7 H (36.4-46.3) fL Plt Count 270 (182-369) K/mm3 MPV 10.3 (9.4-12.3) fl Neut % (Auto) 62.5 (34.0-71.1) % Lymph % (Auto) 26.0 (19.3-51.7) % Jewell % (Auto) 7.3 (4.7-12.5) % Eos % (Auto) 1.9 (0.7-5.8) Baso % (Auto) 1.2 (0.1-1.2) % Neut # (Auto) 5.31 (1.56-6.13) K/mm3 Lymph # (Auto) 2.21 (1.18-3.74) K/mm3 Jewell # (Auto) 0.62 H (0.24-0.36) K/mm3 Eos # (Auto) 0.16 (0.04-0.36) K/mm3 Baso # (Auto) 0.10 H (0.01-0.08) K/mm3 Sodium 141 (136-145) mEq/L Potassium 3.6 (3.5-5.1) mEq/L Chloride 107 (98-107) mEq/L Carbon Dioxide 25 (21-32) mEq/L Anion Gap 12.6 (5-15) BUN 5 L (7-18) mg/dL Creatinine 0.6 (0.55-1.02) mg/dL Est Cr Clr Drug Dosing 111.39 mL/min Estimated GFR (MDRD) > 60 (>60) mL/min BUN/Creatinine Ratio 8.3 L (14-18) Glucose 78 (70-99) mg/dL Lactic Acid 4.7 H* (0.4-2.0) mmol/L Calcium 7.8 L (8.5-10.1) mg/dL Total Bilirubin 2.2 H (0.2-1.0) mg/dL AST 445 H (15-37) U/L ALT 242 H (14-59) U/L Alkaline Phosphatase 113 (46-116) U/L Total Protein 4.6 L (6.4-8.2) g/dl Albumin 2.2 L (3.4-5.0) g/dl Globulin 2.4 gm/dL Albumin/Globulin Ratio 0.9 L (1-2) 01/10/21 Range/Units 05:20 WBC (3.98-10.04) K/mm3 RBC (3.98-5.22) M/mm3 Hgb (11.2-15.7) gm/dl Hct (34.1-44.9) % MCV (79.4-94.8) fl MCH (25.6-32.2) pg MCHC (32.2-35.5) g/dl RDW Std Deviation (36.4-46.3) fL Plt Count (182-369) K/mm3 MPV (9.4-12.3) fl Neut % (Auto) (34.0-71.1) % Lymph % (Auto) (19.3-51.7) % Jewell % (Auto) (4.7-12.5) % Eos % (Auto) (0.7-5.8) Baso % (Auto) (0.1-1.2) % Neut # (Auto) (1.56-6.13) K/mm3 Lymph # (Auto) (1.18-3.74) K/mm3 Jewell # (Auto) (0.24-0.36) K/mm3 Eos # (Auto) (0.04-0.36) K/mm3 Baso # (Auto) (0.01-0.08) K/mm3 Sodium (136-145) mEq/L Potassium (3.5-5.1) mEq/L Chloride (98-107) mEq/L Carbon Dioxide (21-32) mEq/L Anion Gap (5-15) BUN (7-18) mg/dL Creatinine (0.55-1.02) mg/dL Est Cr Clr Drug Dosing mL/min Estimated GFR (MDRD) (>60) mL/min BUN/Creatinine Ratio (14-18) Glucose (70-99) mg/dL Lactic Acid 1.9 (0.4-2.0) mmol/L Calcium (8.5-10.1) mg/dL Total Bilirubin (0.2-1.0) mg/dL AST (15-37) U/L ALT (14-59) U/L Alkaline Phosphatase (46-116) U/L Total Protein (6.4-8.2) g/dl Albumin (3.4-5.0) g/dl Globulin gm/dL Albumin/Globulin Ratio (1-2) Dariusz Results Last 24 Hours: Microbiology 01/08/21 14:05 Blood Culture - Preliminary Blood - Venous - Lab Draw 01/08/21 14:16 Blood Culture - Preliminary Blood - Venous 01/08/21 13:50 Urine Culture - Preliminary Urine Escherichia Coli Med Orders - Current: Current Medications Cyanocobalamin (Cyanocobalamin (Vitamin B12) 1,000 Mcg Tab) 1,000 mcg PO DAILY [facility]DO Last Admin: 01/10/21 08:15 Dose: 1,000 mcg Documented by: Enoxaparin Sodium (Enoxaparin 40 Mg/0.4 Ml Syringe) 40 mg SUBCUT DAILY [facility] Last Admin: 01/10/21 08:15 Dose: 40 mg Documented by: Folic Acid (Folic Acid 1 Mg Tab) 1 mg PO BEDTIME [facility] Last Admin: 01/09/21 20:40 Dose: Not Given Documented by: Ceftriaxone Sodium 2 gm/ (Sodium Chloride) 100 mls @ 200 mls/hr IV Q24H [facility] Last Admin: 01/09/21 16:39 Dose: 200 mls/hr Documented by: Lorazepam (Lorazepam 2 Mg/Ml Sdv) 1 - 3 mg IVPUSH ASDIRECTED PRN; Protocol PRN Reason: Withdrawal Symptoms Last Admin: 01/09/21 23:31 Dose: 2 mg Documented by: Lorazepam (Lorazepam 1 Mg Tab) 1 - 3 mg PO ASDIRECTED PRN; Protocol PRN Reason: Withdrawal Symptoms Last Admin: 01/10/21 12:03 Dose: 1 mg Documented by: Miscellaneous Information (Remove Nicotine Patch) 1 ea TRDERM DAILY [facility] Last Admin: 01/10/21 08:16 Dose: 1 ea Documented by: Nicotine (Nicotine 21 Mg/24 Hr Patch) 21 mg TRDERM DAILY [facility] Last Admin: 01/10/21 08:15 Dose: 21 mg Documented by: Ondansetron HCl (Ondansetron 4 Mg/2 Ml Sdv) 4 mg IVPUSH Q6HR PRN PRN Reason: Nausea/Vomiting Last Admin: 01/09/21 16:53 Dose: 4 mg Documented by: Ondansetron HCl (Ondansetron 4 Mg Tab.Dis) 4 mg PO Q6H PRN PRN Reason: Nausea/Vomiting Thiamine HCl (Thiamine 200 Mg/2 Ml Mdv) 100 mg IVPUSH DAILY [facility] Last Admin: 01/10/21 08:15 Dose: 100 mg Documented by: Discontinued Medications Cyanocobalamin (Cyanocobalamin (Vitamin B12) 1,000 Mcg/Ml Sdv) 1,000 mcg IM ONETIME ONE Stop: 01/09/21 11:10 Last Admin: 01/09/21 11:56 Dose: 1,000 mcg Documented by: Furosemide (Furosemide 20 Mg/2 Ml Vial) 20 mg IVPUSH ONETIME ONE Stop: 01/09/21 16:21 Last Admin: 01/09/21 17:12 Dose: 20 mg Documented by: Dextrose/Sodium Chloride (Dextrose 5%-Normal Saline) 1,000 mls @ 500 mls/hr IV ASDIRECTED [facility] Last Infusion: 01/08/21 14:07 Dose: 500 mls/hr Documented by: Sodium Chloride (Normal Saline) 1,000 mls @ 999 mls/hr IV ASDIRECTED [facility]DO Last Admin: 01/08/21 15:40 Dose: 999 mls/hr Documented by: Potassium Chloride 10 meq/ (Premix) 100 mls @ 100 mls/hr IV Q1H [facility] Stop: 01/08/21 17:29 Last Admin: 01/08/21 17:33 Dose: 100 mls/hr Documented by: Ceftriaxone Sodium 2 gm/ (Sodium Chloride) 100 mls @ 200 mls/hr IV ONETIME ONE Stop: 01/08/21 15:55 Last Admin: 01/08/21 15:40 Dose: 200 mls/hr Documented by: Sodium Chloride (Normal Saline) 1,000 mls @ 999 mls/hr IV ASDIRECTED [facility]DO Last Admin: 01/08/21 17:46 Dose: 999 mls/hr Documented by: Sodium Chloride (Normal Saline) 1,000 mls @ 150 mls/hr IV ASDIRECTED [facility]DO Last Admin: 01/08/21 18:56 Dose: 150 mls/hr Documented by: Dextrose/Sodium Chloride (Dextrose 5%-Normal Saline) 1,000 mls @ 999 mls/hr IV ASDIRECTED VALDO Last Admin: 01/08/21 19:18 Dose: 999 mls/hr Documented by: Dextrose/Sodium Chloride (Dextrose 5%-Normal Saline) 1,000 mls @ 150 mls/hr IV ASDIRECTED VALDO Last Admin: 01/09/21 11:05 Dose: 150 mls/hr Documented by: Potassium Chloride 10 meq/ (Premix) 100 mls @ 100 mls/hr IV Q1H [facility] Stop: 01/08/21 23:59 Last Admin: 01/08/21 22:55 Dose: 100 mls/hr Documented by: Potassium Chloride 10 meq/ (Premix) 100 mls @ 100 mls/hr IV Q1H [facility] Stop: 01/09/21 11:59 Last Admin: 01/09/21 11:05 Dose: 100 mls/hr Documented by: Magnesium Sulfate 4 gm/ Premix 50 mls @ 12.5 mls/hr IV ONETIME ONE Stop: 01/09/21 11:45 Last Admin: 01/09/21 08:01 Dose: 12.5 mls/hr Documented by: Albumin Human (Flexbumin 25%) 12.5 gm in 50 mls @ 100 mls/hr IV ONETIME ONE Stop: 01/09/21 11:32 Last Admin: 01/09/21 11:14 Dose: 100 mls/hr Documented by: Potassium Phosphate 15 mmole/ (Sodium Chloride) 255 mls @ 85 mls/hr IV ONETIME ONE Stop: 01/09/21 14:59 Last Admin: 01/09/21 12:13 Dose: 85 mls/hr Documented by: Albumin Human (Flexbumin 25%) 12.5 gm in 50 mls @ 100 mls/hr IV ONETIME ONE Stop: 01/09/21 16:49 Last Admin: 01/09/21 16:40 Dose: 100 mls/hr Documented by: Lorazepam (Lorazepam 2 Mg/Ml Sdv) 1 mg IV ONETIME ONE Stop: 01/08/21 16:40 Last Admin: 01/08/21 17:01 Dose: 1 mg Documented by: Lorazepam (Lorazepam 2 Mg/Ml Sdv) 1 mg IVPUSH ONETIME ONE Stop: 01/08/21 18:41 Last Admin: 01/08/21 18:52 Dose: 1 mg Documented by: Nicotine (Nicotine 21 Mg/24 Hr Patch) 21 mg TRDERM ONETIME ONE Stop: 01/09/21 04:46 Last Admin: 01/09/21 04:49 Dose: 21 mg Documented by: Potassium Chloride (Potassium Chloride 20 Meq Tab.Er) 20 meq PO ONETIME ONE Stop: 01/09/21 16:23 Last Admin: 01/09/21 16:40 Dose: 20 meq Documented by: Thiamine HCl (Thiamine 200 Mg/2 Ml Mdv) 100 mg IVPUSH ONETIME ONE Stop: 01/08/21 16:43 Last Admin: 01/08/21 17:01 Dose: 100 mg Documented by: - Exam Quality Assessment: No: Supplemental Oxygen Urinary Catheter Total Time: 1Days 14Hours General: Sedated HEENT: Pupils Equal, Mucous Membr. Moist/[place] Neck: Supple Lungs: Clear to Auscultation, Normal Respiratory Effort Cardiovascular: Regular Rhythm, Tachycardia GI/Abdominal Exam: Normal Bowel Sounds, Soft, Non-Tender, No Organomegaly, No Di stention Extremities: Normal Inspection, Normal Range of Motion, No Pedal Edema Skin: Warm, Dry, Intact Psy/Mental Status: Alert, Normal Affect, Normal Mood - Patient Data Lab Results Last 24 hrs: Laboratory Results - last 24 hr 01/09/21 01/10/21 01/10/21 Range/Units 18:25 05:20 05:20 WBC 8.49 (3.98-10.04) K/mm3 RBC 2.54 L (3.98-5.22) M/mm3 Hgb 8.9 L (11.2-15.7) gm/dl Hct 27.3 L (34.1-44.9) % MCV 107.5 H (79.4-94.8) fl MCH 35.0 H (25.6-32.2) pg MCHC 32.6 (32.2-35.5) g/dl RDW Std Deviation 56.7 H (36.4-46.3) fL Plt Count 270 (182-369) K/mm3 MPV 10.3 (9.4-12.3) fl Neut % (Auto) 62.5 (34.0-71.1) % Lymph % (Auto) 26.0 (19.3-51.7) % Jewell % (Auto) 7.3 (4.7-12.5) % Eos % (Auto) 1.9 (0.7-5.8) Baso % (Auto) 1.2 (0.1-1.2) % Neut # (Auto) 5.31 (1.56-6.13) K/mm3 Lymph # (Auto) 2.21 (1.18-3.74) K/mm3 Jewell # (Auto) 0.62 H (0.24-0.36) K/mm3 Eos # (Auto) 0.16 (0.04-0.36) K/mm3 Baso # (Auto) 0.10 H (0.01-0.08) K/mm3 Sodium 141 (136-145) mEq/L Potassium 3.6 (3.5-5.1) mEq/L Chloride 107 (98-107) mEq/L Carbon Dioxide 25 (21-32) mEq/L Anion Gap 12.6 (5-15) BUN 5 L (7-18) mg/dL Creatinine 0.6 (0.55-1.02) mg/dL Est Cr Clr Drug Dosing 111.39 mL/min Estimated GFR (MDRD) > 60 (>60) mL/min BUN/Creatinine Ratio 8.3 L (14-18) Glucose 78 (70-99) mg/dL Lactic Acid 4.7 H* (0.4-2.0) mmol/L Calcium 7.8 L (8.5-10.1) mg/dL Total Bilirubin 2.2 H (0.2-1.0) mg/dL AST 445 H (15-37) U/L ALT 242 H (14-59) U/L Alkaline Phosphatase 113 (46-116) U/L Total Protein 4.6 L (6.4-8.2) g/dl Albumin 2.2 L (3.4-5.0) g/dl Globulin 2.4 gm/dL Albumin/Globulin Ratio 0.9 L (1-2) 01/10/21 Range/Units 05:20 WBC (3.98-10.04) K/mm3 RBC (3.98-5.22) M/mm3 Hgb (11.2-15.7) gm/dl Hct (34.1-44.9) % MCV (79.4-94.8) fl MCH (25.6-32.2) pg MCHC (32.2-35.5) g/dl RDW Std Deviation (36.4-46.3) fL Plt Count (182-369) K/mm3 MPV (9.4-12.3) fl Neut % (Auto) (34.0-71.1) % Lymph % (Auto) (19.3-51.7) % Jewell % (Auto) (4.7-12.5) % Eos % (Auto) (0.7-5.8) Baso % (Auto) (0.1-1.2) % Neut # (Auto) (1.56-6.13) K/mm3 Lymph # (Auto) (1.18-3.74) K/mm3 Jewell # (Auto) (0.24-0.36) K/mm3 Eos # (Auto) (0.04-0.36) K/mm3 Baso # (Auto) (0.01-0.08) K/mm3 Sodium (136-145) mEq/L Potassium (3.5-5.1) mEq/L Chloride (98-107) mEq/L Carbon Dioxide (21-32) mEq/L Anion Gap (5-15) BUN (7-18) mg/dL Creatinine (0.55-1.02) mg/dL Est Cr Clr Drug Dosing mL/min Estimated GFR (MDRD) (>60) mL/min BUN/Creatinine Ratio (14-18) Glucose (70-99) mg/dL Lactic Acid 1.9 (0.4-2.0) mmol/L Calcium (8.5-10.1) mg/dL Total Bilirubin (0.2-1.0) mg/dL AST (15-37) U/L ALT (14-59) U/L Alkaline Phosphatase (46-116) U/L Total Protein (6.4-8.2) g/dl Albumin (3.4-5.0) g/dl Globulin gm/dL Albumin/Globulin Ratio (1-2) Result Diagrams: 01/10/21 05:20 01/10/21 05:20 Dariusz Results Last 24 hrs: Microbiology 01/08/21 14:05 Blood Culture - Preliminary Blood - Venous - Lab Draw 01/08/21 14:16 Blood Culture - Preliminary Blood - Venous 01/08/21 13:50 Urine Culture - Preliminary Urine Escherichia Coli Sepsis Event Note - Evaluation Sepsis Screening Result: Possible Sepsis Risk - Focused Exam Vital Signs: Vital Signs Temp Pulse Resp BP Pulse Ox 01/10/21 12:00 98.1 F 132 H 16 114/85 98 01/10/21 08:00 96.9 F 102 H 14 113/80 98 01/10/21 06:23 98 01/10/21 04:30 93 - Problem List & Annotations (1) Hypoalbuminemia due to protein-calorie malnutrition SNOMED Code(s): 20951867728750 Code(s): E88.09 - OTH DISORDERS OF PLASMA-PROTEIN METABOLISM, NEC; E46 - UNSPECIFIED PROTEIN-CALORIE MALNUTRITION Status: Acute Current Visit: Yes (2) Severe protein-calorie malnutrition (Ascencio: less than 60% of standard weight) SNOMED Code(s): 821599585 Code(s): E43 - UNSPECIFIED SEVERE PROTEIN-CALORIE MALNUTRITION Status: Acute Current Visit: Yes (3) Alcohol withdrawal syndrome SNOMED Code(s): 719501412 Code(s): F10.239 - ALCOHOL DEPENDENCE WITH WITHDRAWAL, UNSPECIFIED Status: Acute Current Visit: Yes (4) Lactic acid acidosis SNOMED Code(s): 44470960 Code(s): E87.2 - ACIDOSIS Status: Resolved Priority: High Current Vi sit: Yes Onset Date: ~01/08/21 (5) Liver disease, alcoholic SNOMED Code(s): 05542393 Code(s): K70.9 - ALCOHOLIC LIVER DISEASE, UNSPECIFIED Status: Acute Priority: High Current Visit: Yes Onset Date: ~01/08/21 - Problem List Review Problem List Initiated/Reviewed/Updated: Yes - My Orders Last 24 Hours: My Active Orders 01/09/21 21:00 Folic Acid 1 mg PO BEDTIME 01/10/21 00:31 LORazepam [Ativan] 1 - 3 mg PO ASDIRECTED PRN 01/10/21 09:00 Cyanocobalamin (Vitamin B12) [Vitamin B12] 1,000 mcg PO DAILY Enoxaparin [Lovenox] 40 mg SUBCUT DAILY 01/10/21 Lunch Regular Diet [DIET] - Plan Plan:: 25-year-old female with chronic alcoholism found by brother after not arousing for 10 hours. Altered mental status/metabolic encephalopathy -improved -Secondary to alcohol withdrawal with possible withdrawal seizure -No significant findings suggestive of severe infection, meningitis, sepsis -Continues to require Ativan because of elevated CIWA scores Alcoholism/alcohol withdrawal syndrome -Patient still has significant tremors and tachycardia from alcohol withdrawal -Continues to require Ativan throughout the day -Continue CIWA protocol -Recommend outpatient treatment for alcoholism Alcoholic liver disease -Bilirubin stable at 2.2 -Liver enzymes increased but will likely wax and wane. -Significant hypoalbuminemia with diffuse anasarca. Albumin improved to 2.2. -Advance diet as tolerated -Protein supplementation -Lactic acidosis resolved. -Follow CMP daily or more often Macrocytic anemia -Significant drop in hemoglobin of 6 g with hydration. Stable overnight -Initial hemoglobin of 15 was likely secondary to hemoconcentration from poor oral intake over the last few days per her brother -Supplementation of thiamine, folic acid, and B12 -Encourage oral intake -IV fluids stopped Uncomplicated UTI -due to E. coli -Continue Rocephin -Follow CBC -White count is normal Severe protein malnutrition with electrolyte abnormalities -Supplement and follow as needed -Encourage oral intake VTE prophylaxis with Lovenox CODE STATUS: Full code
[2021-01-10] MEDS: cefTRIAXone 2 GM in Sodium Chloride 0.9% 100 ML IV SCH (16:40)
[2021-01-10] MEDS: Folic Acid 1 MG Tab PO SCH (20:00)
[2021-01-11] MEDS: LORazepam 1 MG Tab PO PRN ×3 (02:33→16:59)
[2021-01-11] MEDS: LORazepam 2 MG/ML SDV IVPUSH PRN (04:59)
[2021-01-11] MEDS: Nicotine 21 MG/24 Hr Patch TRDERM SCH (09:53)
[2021-01-11] MEDS: Enoxaparin 40 MG/0.4 ML Syringe SUBCUT SCH (09:54)
[2021-01-11] MEDS: Cyanocobalamin (Vitamin B12) 1,000 MCG Tab PO SCH (09:55)
[2021-01-11] MEDS: Thiamine 200 MG/2 ML MDV IVPUSH SCH (09:55)
[2021-01-11] MEDS ORDERED: Magnesium Sulfate/Water 4 GM in Premix Bag 1 BAG IV ONE (10:30)
--- NOTE | 2021-01-11 10:40 | PCM.PN ---
- General Info Date of Service: 01/11/21 Admission Dx/Problem (Free Text): etoh abuse /unresponsive. Subjective Update: Patient is much more alert today. She has required much less Ativan over the last 24 hours. Appetite is improving, but still not good. She continues to be very weak and requiring assistance for standing. Functional Status: Reports: Pain Controlled - Review of Systems General: Reports: Fatigue HEENT: Reports: No Symptoms Pulmonary: Reports: No Symptoms Cardiovascular: Reports: No Symptoms Gastrointestinal: Reports: No Symptoms - Patient Data Vitals - Most Recent: Last Vital Signs Temp 98.1 F 01/11/21 08:05 Pulse 96 01/11/21 08:05 Resp 18 01/11/21 08:05 BP 118/80 01/11/21 08:05 Pulse Ox 97 01/11/21 08:05 Weight - Most Recent: 117 lb 3.2 oz I&O - Last 24 Hours: Intake & Output 01/10/21 01/11/21 01/11/21 22:59 06:59 14:59 Intake Total 0 300 Output Total 1401 575 400 Balance -1401 -275 -400 Lab Results Last 24 Hours: Laboratory Results - last 24 hr 01/11/21 01/11/21 01/11/21 Range/Units 09:01 09:01 09:01 WBC 8.25 (3.98-10.04) K/mm3 RBC 2.60 L (3.98-5.22) M/mm3 Hgb 9.0 L (11.2-15.7) gm/dl Hct 28.3 L (34.1-44.9) % MCV 108.8 H (79.4-94.8) fl MCH 34.6 H (25.6-32.2) pg MCHC 31.8 L (32.2-35.5) g/dl RDW Std Deviation 57.9 H (36.4-46.3) fL Plt Count 310 (182-369) K/mm3 MPV 10.8 (9.4-12.3) fl Neut % (Auto) 67.2 (34.0-71.1) % Lymph % (Auto) 21.1 (19.3-51.7) % Robeson % (Auto) 6.9 (4.7-12.5) % Eos % (Auto) 2.2 (0.7-5.8) Baso % (Auto) 1.0 (0.1-1.2) % Neut # (Auto) 5.55 (1.56-6.13) K/mm3 Lymph # (Auto) 1.74 (1.18-3.74) K/mm3 Robeson # (Auto) 0.57 H (0.24-0.36) K/mm3 Eos # (Auto) 0.18 (0.04-0.36) K/mm3 Baso # (Auto) 0.08 (0.01-0.08) K/mm3 Sodium 142 (136-145) mEq/L Potassium 4.2 (3.5-5.1) mEq/L Chloride 109 H (98-107) mEq/L Carbon Dioxide 26 (21-32) mEq/L Anion Gap 11.2 (5-15) BUN 6 L (7-18) mg/dL Creatinine 0.6 (0.55-1.02) mg/dL Est Cr Clr Drug Dosing 111.39 mL/min Estimated GFR (MDRD) > 60 (>60) mL/min BUN/Creatinine Ratio 10.0 L (14-18) Glucose 84 (70-99) mg/dL Calcium 8.5 (8.5-10.1) mg/dL Phosphorus 3.9 (2.6-4.7) mg/dL Magnesium 1.5 L (1.8-2.4) mg/dL Total Bilirubin 2.1 H (0.2-1.0) mg/dL AST 468 H (15-37) U/L ALT 292 H (14-59) U/L Alkaline Phosphatase 135 H (46-116) U/L Total Protein 4.9 L (6.4-8.2) g/dl Albumin 2.3 L (3.4-5.0) g/dl Globulin 2.6 gm/dL Albumin/Globulin Ratio 0.9 L (1-2) Hepatitis C Antibody Negative (NEGATIVE) HIV-1 Ab Rapid Screen Negative (NEGATIVE) Dariusz Results Last 24 Hours: Microbiology 01/08/21 14:05 Blood Culture - Preliminary Blood - Venous - Lab Draw 01/08/21 14:16 Blood Culture - Preliminary Blood - Venous 01/08/21 13:50 Urine Culture - Preliminary Urine Escherichia Coli Med Orders - Current: Current Medications Cyanocobalamin (Cyanocobalamin (Vitamin B12) 1,000 Mcg Tab) 1,000 mcg PO DAILY [facility] Last Admin: 01/11/21 09:55 Dose: 1,000 mcg Documented by: Enoxaparin Sodium (Enoxaparin 40 Mg/0.4 Ml Syringe) 40 mg SUBCUT DAILY [facility] Last Admin: 01/11/21 09:54 Dose: 40 mg Documented by: Folic Acid (Folic Acid 1 Mg Tab) 1 mg PO BEDTIME [facility] Last Admin: 01/10/21 20:00 Dose: 1 mg Documented by: Ceftriaxone Sodium 2 gm/ (Sodium Chloride) 100 mls @ 200 mls/hr IV Q24H [facility] Last Admin: 01/10/21 16:40 Dose: 200 mls/hr Documented by: Magnesium Sulfate 4 gm/ Premix 50 mls @ 12.5 mls/hr IV ONETIME ONE Stop: 01/11/21 14:29 Lorazepam (Lorazepam 2 Mg/Ml Sdv) 1 - 3 mg IVPUSH ASDIRECTED PRN; Protocol PRN Reason: Withdrawal Symptoms Last Admin: 01/11/21 04:59 Dose: 1 mg Documented by: Lorazepam (Lorazepam 1 Mg Tab) 1 - 3 mg PO ASDIRECTED PRN; Protocol PRN Reason: Withdrawal Symptoms Last Admin: 01/11/21 02:33 Dose: 1 mg Documented by: Miscellaneous Information (Remove Nicotine Patch) 1 ea TRDERM DAILY [facility] Last Admin: 01/11/21 09:54 Dose: 1 ea Documented by: Nicotine (Nicotine 21 Mg/24 Hr Patch) 21 mg TRDERM DAILY [facility] Last Admin: 01/11/21 09:53 Dose: 21 mg Documented by: Ondansetron HCl (Ondansetron 4 Mg/2 Ml Sdv) 4 mg IVPUSH Q6HR PRN PRN Reason: Nausea/Vomiting Last Admin: 01/09/21 16:53 Dose: 4 mg Documented by: Ondansetron HCl (Ondansetron 4 Mg Tab.Dis) 4 mg PO Q6H PRN PRN Reason: Nausea/Vomiting Thiamine HCl (Thiamine 200 Mg/2 Ml Mdv) 100 mg IVPUSH DAILY [facility] Last Admin: 01/11/21 09:55 Dose: 100 mg Documented by: Discontinued Medications Cyanocobalamin (Cyanocobalamin (Vitamin B12) 1,000 Mcg/Ml Sdv) 1,000 mcg IM ONETIME ONE Stop: 01/09/21 11:10 Last Admin: 01/09/21 11:56 Dose: 1,000 mcg Documented by: Furosemide (Furosemide 20 Mg/2 Ml Vial) 20 mg IVPUSH ONETIME ONE Stop: 01/09/21 16:21 Last Admin: 01/09/21 17:12 Dose: 20 mg Documented by: Dextrose/Sodium Chloride (Dextrose 5%-Normal Saline) 1,000 mls @ 500 mls/hr IV ASDIRECTED [facility] Last Infusion: 01/08/21 14:07 Dose: 500 mls/hr Documented by: Sodium Chloride (Normal Saline) 1,000 mls @ 999 mls/hr IV ASDIRECTED [facility] Last Admin: 01/08/21 15:40 Dose: 999 mls/hr Documented by: Potassium Chloride 10 meq/ (Premix) 100 mls @ 100 mls/hr IV Q1H [facility] Stop: 01/08/21 17:29 Last Admin: 01/08/21 17:33 Dose: 100 mls/hr Documented by: Ceftriaxone Sodium 2 gm/ (Sodium Chloride) 100 mls @ 200 mls/hr IV ONETIME ONE Stop: 01/08/21 15:55 Last Admin: 01/08/21 15:40 Dose: 200 mls/hr Documented by: Sodium Chloride (Normal Saline) 1,000 mls @ 999 mls/hr IV ASDIRECTED VALDO Last Admin: 01/08/21 17:46 Dose: 999 mls/hr Documented by: Sodium Chloride (Normal Saline) 1,000 mls @ 150 mls/hr IV ASDIRECTED VALDO Last Admin: 01/08/21 18:56 Dose: 150 mls/hr Documented by: Dextrose/Sodium Chloride (Dextrose 5%-Normal Saline) 1,000 mls @ 999 mls/hr IV ASDIRECTED VALDO Last Admin: 01/08/21 19:18 Dose: 999 mls/hr Documented by: Dextrose/Sodium Chloride (Dextrose 5%-Normal Saline) 1,000 mls @ 150 mls/hr IV ASDIRECTED VALDO Last Admin: 01/09/21 11:05 Dose: 150 mls/hr Documented by: Potassium Chloride 10 meq/ (Premix) 100 mls @ 100 mls/hr IV Q1H [facility] Stop: 01/08/21 23:59 Last Admin: 01/08/21 22:55 Dose: 100 mls/hr Documented by: Potassium Chloride 10 meq/ (Premix) 100 mls @ 100 mls/hr IV Q1H [facility] Stop: 01/09/21 11:59 Last Admin: 01/09/21 11:05 Dose: 100 mls/hr Documented by: Magnesium Sulfate 4 gm/ Premix 50 mls @ 12.5 mls/hr IV ONETIME ONE Stop: 01/09/21 11:45 Last Admin: 01/09/21 08:01 Dose: 12.5 mls/hr Documented by: Albumin Human (Flexbumin 25%) 12.5 gm in 50 mls @ 100 mls/hr IV ONETIME ONE Stop: 01/09/21 11:32 Last Admin: 01/09/21 11:14 Dose: 100 mls/hr Documented by: Potassium Phosphate 15 mmole/ (Sodium Chloride) 255 mls @ 85 mls/hr IV ONETIME ONE Stop: 01/09/21 14:59 Last Admin: 01/09/21 12:13 Dose: 85 mls/hr Documented by: Albumin Human (Flexbumin 25%) 12.5 gm in 50 mls @ 100 mls/hr IV ONETIME ONE Stop: 01/09/21 16:49 Last Admin: 01/09/21 16:40 Dose: 100 mls/hr Documented by: Lorazepam (Lorazepam 2 Mg/Ml Sdv) 1 mg IV ONETIME ONE Stop: 01/08/21 16:40 Last Admin: 01/08/21 17:01 Dose: 1 mg Documented by: Lorazepam (Lorazepam 2 Mg/Ml Sdv) 1 mg IVPUSH ONETIME ONE Stop: 01/08/21 18:41 Last Admin: 01/08/21 18:52 Dose: 1 mg Documented by: Nicotine (Nicotine 21 Mg/24 Hr Patch) 21 mg TRDERM ONETIME ONE Stop: 01/09/21 04:46 Last Admin: 01/09/21 04:49 Dose: 21 mg Documented by: Potassium Chloride (Potassium Chloride 20 Meq Tab.Er) 20 meq PO ONETIME ONE Stop: 01/09/21 16:23 Last Admin: 01/09/21 16:40 Dose: 20 meq Documented by: Thiamine HCl (Thiamine 200 Mg/2 Ml Mdv) 100 mg IVPUSH ONETIME ONE Stop: 01/08/21 16:43 Last Admin: 01/08/21 17:01 Dose: 100 mg Documented by: - Exam Quality Assessment: No: Supplemental Oxygen Urinary Catheter Total Time: 1Days 14Hours General: Alert HEENT: Pupils Equal, Mucous Membr. Moist/[place] Neck: Supple Lungs: Clear to Auscultation, Normal Respiratory Effort Cardiovascular: Regular Rate, Regular Rhythm GI/Abdominal Exam: Normal Bowel Sounds, Soft, Non-Tender, No Organomegaly Extremities: Normal Inspection, Normal Range of Motion, Non-Tender, No Pedal Edema Skin: Warm, Dry, Intact Psy/Mental Status: Alert, Normal Affect, Normal Mood - Patient Data Lab Results Last 24 hrs: Laboratory Results - last 24 hr 01/11/21 01/11/21 01/11/21 Range/Units 09:01 09:01 09:01 WBC 8.25 (3.98-10.04) K/mm3 RBC 2.60 L (3.98-5.22) M/mm3 Hgb 9.0 L (11.2-15.7) gm/dl Hct 28.3 L (34.1-44.9) % MCV 108.8 H (79.4-94.8) fl MCH 34.6 H (25.6-32.2) pg MCHC 31.8 L (32.2-35.5) g/dl RDW Std Deviation 57.9 H (36.4-46.3) fL Plt Count 310 (182-369) K/mm3 MPV 10.8 (9.4-12.3) fl Neut % (Auto) 67.2 (34.0-71.1) % Lymph % (Auto) 21.1 (19.3-51.7) % Robeson % (Auto) 6.9 (4.7-12.5) % Eos % (Auto) 2.2 (0.7-5.8) Baso % (Auto) 1.0 (0.1-1.2) % Neut # (Auto) 5.55 (1.56-6.13) K/mm3 Lymph # (Auto) 1.74 (1.18-3.74) K/mm3 Robeson # (Auto) 0.57 H (0.24-0.36) K/mm3 Eos # (Auto) 0.18 (0.04-0.36) K/mm3 Baso # (Auto) 0.08 (0.01-0.08) K/mm3 Sodium 142 (136-145) mEq/L Potassium 4.2 (3.5-5.1) mEq/L Chloride 109 H (98-107) mEq/L Carbon Dioxide 26 (21-32) mEq/L Anion Gap 11.2 (5-15) BUN 6 L (7-18) mg/dL Creatinine 0.6 (0.55-1.02) mg/dL Est Cr Clr Drug Dosing 111.39 mL/min Estimated GFR (MDRD) > 60 (>60) mL/min BUN/Creatinine Ratio 10.0 L (14-18) Glucose 84 (70-99) mg/dL Calcium 8.5 (8.5-10.1) mg/dL Phosphorus 3.9 (2.6-4.7) mg/dL Magnesium 1.5 L (1.8-2.4) mg/dL Total Bilirubin 2.1 H (0.2-1.0) mg/dL AST 468 H (15-37) U/L ALT 292 H (14-59) U/L Alkaline Phosphatase 135 H (46-116) U/L Total Protein 4.9 L (6.4-8.2) g/dl Albumin 2.3 L (3.4-5.0) g/dl Globulin 2.6 gm/dL Albumin/Globulin Ratio 0.9 L (1-2) Hepatitis C Antibody Negative (NEGATIVE) HIV-1 Ab Rapid Screen Negative (NEGATIVE) Result Diagrams: 01/11/21 09:01 01/11/21 09:01 Dariusz Results Last 24 hrs: Microbiology 01/08/21 14:05 Blood Culture - Preliminary Blood - Venous - Lab Draw 01/08/21 14:16 Blood Culture - Preliminary Blood - Venous 01/08/21 13:50 Urine Culture - Preliminary Urine Escherichia Coli Sepsis Event Note - Evaluation Sepsis Screening Result: Possible Sepsis Risk - Focused Exam Vital Signs: Vital Signs Temp Pulse Resp BP Pulse Ox 01/11/21 08:05 98.1 F 96 18 118/80 97 01/11/21 04:00 97.4 F 18 121/94 H 97 01/11/21 00:00 97.5 F 16 118/89 98 - Problem List & Annotations (1) Hypoalbuminemia due to protein-calorie malnutrition SNOMED Code(s): 05428290568799 Code(s): E88.09 - OTH DISORDERS OF PLASMA-PROTEIN METABOLISM, NEC; E46 - UNSPECIFIED PROTEIN-CALORIE MALNUTRITION Status: Acute Current Visit: Yes (2) Severe protein-calorie malnutrition (Ascencio: less than 60% of standard weight) SNOMED Code(s): 304861375 Code(s): E43 - UNSPECIFIED SEVERE PROTEIN-CALORIE MALNUTRITION Status: Acute Current Visit: Yes (3) Alcohol withdrawal syndrome SNOMED Code(s): 480386264 Code(s): F10.239 - ALCOHOL DEPENDENCE WITH WITHDRAWAL, UNSPECIFIED Status: Acute Current Visit: Yes (4) Lactic acid acidosis SNOMED Code(s): 59055689 Code(s): E87.2 - ACIDOSIS Status: Resolved Priority: High Current Visit: Yes Onset Date: ~01/08/21 (5) Liver disease, alcoholic SNOMED Code(s): 32697122 Code(s): K70.9 - ALCOHOLIC LIVER DISEASE, UNSPECIFIED Status: Acute Priority: High Current Visit: Yes Onset Date: ~01/08/21 - Problem List Review Problem List Initiated/Reviewed/Updated: Yes - My Orders Last 24 Hours: My Active Orders 01/10/21 Lunch Regular Diet [DIET] 01/11/21 10:02 Abdomen Ltd [US] Routine 01/11/21 10:30 Magnesium Sulfate/Water [Magnesium Sulfate in Water 4 GM/50 ML] 4 gm Premix Ba g 1 bag IV ONETIME - Plan Plan:: 25-year-old female with chronic alcoholism found by brother after not arousing for 10 hours. Altered mental status/metabolic encephalopathy -improved -Secondary to alcohol withdrawal with possible withdrawal seizure -No significant findings suggestive of severe infection, meningitis, sepsis -Requiring less Ativan likely improving mentation. Alcoholism/alcohol withdrawal syndrome -Patient still has improving tremors and tachycardia from alcohol withdrawal -Continues to require Ativan but less -Continue [facility] protocol -Recommend outpatient treatment for alcoholism Alcoholic liver disease -Bilirubin stable at 2.1 -Liver enzymes increased but will likely wax and wane. -Significant hypoalbuminemia with diffuse anasarca. Albumin 2.3. -Advance diet as tolerated -Protein supplementation -Lactic acidosis resolved. -Follow CMP daily Macrocytic anemia -Significant drop in hemoglobin of 6 g with hydration. Stable for 2 days -Initial hemoglobin of 15 was likely secondary to hemoconcentration from poor oral intake over the last few days per her brother -Supplementation of thiamine, folic acid, and B12 -check iron, tbic, folate -Encourage oral intake -IV fluids stopped Uncomplicated UTI -due to E. coli -Continue Rocephin -Follow CBC -White count is normal Severe protein malnutrition with electrolyte abnormalities -Supplement and follow as needed -Encourage oral intake VTE prophylaxis with Lovenox CODE STATUS: Full code
--- NOTE | 2021-01-11 15:48 | US ---
Limited abdominal ultrasound: Multiple real-time images were obtained of the upper right abdomen. Comparison: Prior CT abdomen and pelvis study of 01/08/21. Findings: Liver is echogenic. Gallbladder is fairly collapsed. Prominent amount of fluid is seen around the gallbladder. Gallbladder wall is thickened which could relate to the degree of poor distention. No biliary duct dilatation is seen. Right kidney shows no hydronephrosis or mass. Right kidney has a length of 11.3 cm. Proximal aorta shows no aneurysm. Pancreas is not completely seen. Visualized portions of the pancreas show no discrete abnormality. Inferior vena cava is patent. Main portal vein shows normal hepatopetal flow. Impression: 1. Fatty infiltration within the liver. 2. Collapsed gallbladder presumably causing gallbladder wall thickening. Prominent amount of fluid is seen around the gallbladder which raises the possibility of diffuse inflammatory change. No definite shadowing cholelithiasis or biliary duct dilatation is seen. Please correlate if patient has any symptoms of acalculous cholecystitis. 3. Other portions of the right upper quadrant abdominal ultrasound are unremarkable. Diagnostic code #3
[2021-01-11] MEDS: Cephalexin 500 MG Cap PO SCH ×2 (16:59→20:42)
[2021-01-11] MEDS: Folic Acid 1 MG Tab PO SCH (20:42)
[2021-01-12] MEDS: Thiamine 100 MG Tab PO SCH (08:58)
[2021-01-12] MEDS: Cephalexin 500 MG Cap PO SCH ×4 (08:58→20:16)
[2021-01-12] MEDS: Nicotine 21 MG/24 Hr Patch TRDERM SCH (08:59)
[2021-01-12] MEDS: Enoxaparin 40 MG/0.4 ML Syringe SUBCUT SCH (08:59)
[2021-01-12] MEDS: Cyanocobalamin (Vitamin B12) 1,000 MCG Tab PO SCH (08:59)
--- NOTE | 2021-01-12 13:02 | PCM.PN ---
- General Info Date of Service: 01/12/21 Admission Dx/Problem (Free Text): etoh abuse /unresponsive. Subjective Update: Patient is much more oriented today. She did know the month, year, where she was, her name, and was generally much more alert. She continues to have difficulty with ambulating. Appetite is improving. - Review of Systems General: Reports: Fatigue HEENT: Reports: No Symptoms Pulmonary: Reports: No Symptoms Cardiovascular: Reports: No Symptoms Gastrointestinal: Reports: No Symptoms Neurological: Reports: Difficulty Walking, Weakness - Patient Data Vitals - Most Recent: Last Vital Signs Temp 97.6 F 01/12/21 08:00 Pulse 110 H 01/12/21 08:00 Resp 16 01/12/21 08:00 BP 114/87 01/12/21 08:00 Pulse Ox 100 01/12/21 08:00 Weight - Most Recent: 115 lb 12.8 oz I&O - Last 24 Hours: Intake & Output 01/11/21 01/12/21 01/12/21 22:59 06:59 14:59 Intake Total 650 300 450 Output Total 750 500 300 Balance -100 -200 150 Lab Results Last 24 Hours: Laboratory Results - last 24 hr 01/12/21 01/12/21 Range/Units 10:31 10:31 WBC 9.49 (3.98-10.04) K/mm3 RBC 2.98 L (3.98-5.22) M/mm3 Hgb 10.5 L D (11.2-15.7) gm/dl Hct 32.9 L (34.1-44.9) % MCV 110.4 H (79.4-94.8) fl MCH 35.2 H (25.6-32.2) pg MCHC 31.9 L (32.2-35.5) g/dl RDW Std Deviation 64.2 H (36.4-46.3) fL Plt Count 350 (182-369) K/mm3 MPV 10.9 (9.4-12.3) fl Neut % (Auto) 70.3 (34.0-71.1) % Lymph % (Auto) 19.7 (19.3-51.7) % [place] % (Auto) 6.2 (4.7-12.5) % Eos % (Auto) 2.2 (0.7-5.8) Baso % (Auto) 0.7 (0.1-1.2) % Neut # (Auto) 6.66 H (1.56-6.13) K/mm3 Lymph # (Auto) 1.87 (1.18-3.74) K/mm3 [place] # (Auto) 0.59 H (0.24-0.36) K/mm3 Eos # (Auto) 0.21 (0.04-0.36) K/mm3 Baso # (Auto) 0.07 (0.01-0.08) K/mm3 Manual Slide Review Abnormal smear Sodium 142 (136-145) mEq/L Potassium 4.7 (3.5-5.1) mEq/L Chloride 107 (98-107) mEq/L Carbon Dioxide 25 (21-32) mEq/L Anion Gap 14.7 (5-15) BUN 8 (7-18) mg/dL Creatinine 0.6 (0.55-1.02) mg/dL Est Cr Clr Drug Dosing 110.42 mL/min Estimated GFR (MDRD) > 60 (>60) mL/min BUN/Creatinine Ratio 13.3 L (14-18) Glucose 98 (70-99) mg/dL Calcium 9.1 (8.5-10.1) mg/dL Phosphorus 4.8 H (2.6-4.7) mg/dL Magnesium 1.9 (1.8-2.4) mg/dL Total Bilirubin 2.1 H (0.2-1.0) mg/dL AST 416 H (15-37) U/L ALT 307 H (14-59) U/L Alkaline Phosphatase 171 H (46-116) U/L Total Protein 5.9 L (6.4-8.2) g/dl Albumin 2.7 L (3.4-5.0) g/dl Globulin 3.2 gm/dL Albumin/Globulin Ratio 0.8 L (1-2) Dariusz Results Last 24 Hours: Microbiology 01/08/21 13:50 Urine Culture - Final Urine Escherichia Coli Med Orders - Current: Current Medications Cephalexin (Cephalexin 500 Mg Cap) 500 mg PO QID VALDO Stop: 01/13/21 17:01 Last Admin: 01/12/21 08:58 Dose: 500 mg Documented by: Cyanocobalamin (Cyanocobalamin (Vitamin B12) 1,000 Mcg Tab) 1,000 mcg PO DAILY [facility] Last Admin: 01/12/21 08:59 Dose: 1,000 mcg Documented by: Enoxaparin Sodium (Enoxaparin 40 Mg/0.4 Ml Syringe) 40 mg SUBCUT DAILY [facility] Last Admin: 01/12/21 08:59 Dose: 40 mg Documented by: Folic Acid (Folic Acid 1 Mg Tab) 1 mg PO BEDTIME [facility] Last Admin: 01/11/21 20:42 Dose: 1 mg Documented by: Lorazepam (Lorazepam 2 Mg/Ml Sdv) 1 - 3 mg IVPUSH ASDIRECTED PRN; Protocol PRN Reason: Withdrawal Symptoms Last Admin: 01/11/21 04:59 Dose: 1 mg Documented by: Lorazepam (Lorazepam 1 Mg Tab) 1 - 3 mg PO ASDIRECTED PRN; Protocol PRN Reason: Withdrawal Symptoms Last Admin: 01/11/21 16:59 Dose: 1 mg Documented by: Miscellaneous Information (Remove Nicotine Patch) 1 ea TRDERM DAILY [facility] Last Admin: 01/12/21 09:01 Dose: 1 ea Documented by: Nicotine (Nicotine 21 Mg/24 Hr Patch) 21 mg TRDERM DAILY [facility] Last Admin: 01/12/21 08:59 Dose: 21 mg Documented by: Ondansetron HCl (Ondansetron 4 Mg/2 Ml Sdv) 4 mg IVPUSH Q6HR PRN PRN Reason: Nausea/Vomiting Last Admin: 01/09/21 16:53 Dose: 4 mg Documented by: Ondansetron HCl (Ondansetron 4 Mg Tab.Dis) 4 mg PO Q6H PRN PRN Reason: Nausea/Vomiting Thiamine HCl (Thiamine 100 Mg Tab) 100 mg PO DAILY [facility] Last Admin: 01/12/21 08:58 Dose: 100 mg Documented by: Discontinued Medications Cyanocobalamin (Cyanocobalamin (Vitamin B12) 1,000 Mcg/Ml Sdv) 1,000 mcg IM ONETIME ONE Stop: 01/09/21 11:10 Last Admin: 01/09/21 11:56 Dose: 1,000 mcg Documented by: Furosemide (Furosemide 20 Mg/2 Ml Vial) 20 mg IVPUSH ONETIME ONE Stop: 01/09/21 16:21 Last Admin: 01/09/21 17:12 Dose: 20 mg Documented by: Dextrose/Sodium Chloride (Dextrose 5%-Normal Saline) 1,000 mls @ 500 mls/hr IV ASDIRECTED [facility] Last Infusion: 01/08/21 14:07 Dose: 500 mls/hr Documented by: Sodium Chloride (Normal Saline) 1,000 mls @ 999 mls/hr IV ASDIRECTED VALDO Last Admin: 01/08/21 15:40 Dose: 999 mls/hr Documented by: Potassium Chloride 10 meq/ (Premix) 100 mls @ 100 mls/hr IV Q1H VALDO Stop: 01/08/21 17:29 Last Admin: 01/08/21 17:33 Dose: 100 mls/hr Documented by: Ceftriaxone Sodium 2 gm/ (Sodium Chloride) 100 mls @ 200 mls/hr IV ONETIME ONE Stop: 01/08/21 15:55 Last Admin: 01/08/21 15:40 Dose: 200 mls/hr Documented by: Sodium Chloride (Normal Saline) 1,000 mls @ 999 mls/hr IV ASDIRECTED [facility] Last Admin: 01/08/21 17:46 Dose: 999 mls/hr Documented by: Sodium Chloride (Normal Saline) 1,000 mls @ 150 mls/hr IV ASDIRECTED [facility] Last Admin: 01/08/21 18:56 Dose: 150 mls/hr Documented by: Dextrose/Sodium Chloride (Dextrose 5%-Normal Saline) 1,000 mls @ 999 mls/hr IV ASDIRECTED [facility] Last Admin: 01/08/21 19:18 Dose: 999 mls/hr Documented by: Dextrose/Sodium Chloride (Dextrose 5%-Normal Saline) 1,000 mls @ 150 mls/hr IV ASDIRECTED [facility] Last Admin: 01/09/21 11:05 Dose: 150 mls/hr Documented by: Potassium Chloride 10 meq/ (Premix) 100 mls @ 100 mls/hr IV Q1H VALDO Stop: 01/08/21 23:59 Last Admin: 01/08/21 22:55 Dose: 100 mls/hr Documented by: Ceftriaxone Sodium 2 gm/ (Sodium Chloride) 100 mls @ 200 mls/hr IV Q24H [facility] Last Admin: 01/10/21 16:40 Dose: 200 mls/hr Documented by: Potassium Chloride 10 meq/ (Premix) 100 mls @ 100 mls/hr IV Q1H VALDO Stop: 01/09/21 11:59 Last Admin: 01/09/21 11:05 Dose: 100 mls/hr Documented by: Magnesium Sulfate 4 gm/ Premix 50 mls @ 12.5 mls/hr IV ONETIME ONE Stop: 01/09/21 11:45 Last Admin: 01/09/21 08:01 Dose: 12.5 mls/hr Documented by: Albumin Human (Flexbumin 25%) 12.5 gm in 50 mls @ 100 mls/hr IV ONETIME ONE Stop: 01/09/21 11:32 Last Admin: 01/09/21 11:14 Dose: 100 mls/hr Documented by: Potassium Phosphate 15 mmole/ (Sodium Chloride) 255 mls @ 85 mls/hr IV ONETIME ONE Stop: 01/09/21 14:59 Last Admin: 01/09/21 12:13 Dose: 85 mls/hr Documented by: Albumin Human (Flexbumin 25%) 12.5 gm in 50 mls @ 100 mls/hr IV ONETIME ONE Stop: 01/09/21 16:49 Last Admin: 01/09/21 16:40 Dose: 100 mls/hr Documented by: Magnesium Sulfate 4 gm/ Premix 50 mls @ 12.5 mls/hr IV ONETIME ONE Stop: 01/11/21 14:29 Last Admin: 01/11/21 12:18 Dose: 12.5 mls/hr Documented by: Lorazepam (Lorazepam 2 Mg/Ml Sdv) 1 mg IV ONETIME ONE Stop: 01/08/21 16:40 Last Admin: 01/08/21 17:01 Dose: 1 mg Documented by: Lorazepam (Lorazepam 2 Mg/Ml Sdv) 1 mg IVPUSH ONETIME ONE Stop: 01/08/21 18:41 Last Admin: 01/08/21 18:52 Dose: 1 mg Documented by: Nicotine (Nicotine 21 Mg/24 Hr Patch) 21 mg TRDERM ONETIME ONE Stop: 01/09/21 04:46 Last Admin: 01/09/21 04:49 Dose: 21 mg Documented by: Potassium Chloride (Potassium Chloride 20 Meq Tab.Er) 20 meq PO ONETIME ONE Stop: 01/09/21 16:23 Last Admin: 01/09/21 16:40 Dose: 20 meq Documented by: Thiamine HCl (Thiamine 200 Mg/2 Ml Mdv) 100 mg IVPUSH ONETIME ONE Stop: 01/08/21 16:43 Last Admin: 01/08/21 17:01 Dose: 100 mg Documented by: Thiamine HCl (Thiamine 200 Mg/2 Ml Mdv) 100 mg IVPUSH DAILY [facility] Last Admin: 01/11/21 09:55 Dose: 100 mg Documented by: - Exam Quality Assessment: No: Supplemental Oxygen Urinary Catheter Total Time: 1Days 14Hours General: Alert HEENT: Pupils Equal, Mucous Membr. Moist/[place] Neck: Supple Lungs: Clear to Auscultation, Normal Respiratory Effort Cardiovascular: Regular Rate, Regular Rhythm GI/Abdominal Exam: Normal Bowel Sounds, Soft, Non-Tender, No Organomegaly, No Distention Extremities: Normal Inspection, Normal Range of Motion, Non-Tender Skin: Warm, Dry, Intact Psy/Mental Status: Alert, Normal Affect, Normal Mood - Patient Data Lab Results Last 24 hrs: Laboratory Results - last 24 hr 01/12/21 01/12/21 Range/Units 10:31 10:31 WBC 9.49 (3.98-10.04) K/mm3 RBC 2.98 L (3.98-5.22) M/mm3 Hgb 10.5 L D (11.2-15.7) gm/dl Hct 32.9 L (34.1-44.9) % MCV 110.4 H (79.4-94.8) fl MCH 35.2 H (25.6-32.2) pg MCHC 31.9 L (32.2-35.5) g/dl RDW Std Deviation 64.2 H (36.4-46.3) fL Plt Count 350 (182-369) K/mm3 MPV 10.9 (9.4-12.3) fl Neut % (Auto) 70.3 (34.0-71.1) % Lymph % (Auto) 19.7 (19.3-51.7) % [place] % (Auto) 6.2 (4.7-12.5) % Eos % (Auto) 2.2 (0.7-5.8) Baso % (Auto) 0.7 (0.1-1.2) % Neut # (Auto) 6.66 H (1.56-6.13) K/mm3 Lymph # (Auto) 1.87 (1.18-3.74) K/mm3 [place] # (Auto) 0.59 H (0.24-0.36) K/mm3 Eos # (Auto) 0.21 (0.04-0.36) K/mm3 Baso # (Auto) 0.07 (0.01-0.08) K/mm3 Manual Slide Review Abnormal smear Sodium 142 (136-145) mEq/L Potassium 4.7 (3.5-5.1) mEq/L Chloride 107 (98-107) mEq/L Carbon Dioxide 25 (21-32) mEq/L Anion Gap 14.7 (5-15) BUN 8 (7-18) mg/dL Creatinine 0.6 (0.55-1.02) mg/dL Est Cr Clr Drug Dosing 110.42 mL/min Estimated GFR (MDRD) > 60 (>60) mL/min BUN/Creatinine Ratio 13.3 L (14-18) Glucose 98 (70-99) mg/dL Calcium 9.1 (8.5-10.1) mg/dL Phosphorus 4.8 H (2.6-4.7) mg/dL Magnesium 1.9 (1.8-2.4) mg/dL Total Bilirubin 2.1 H (0.2-1.0) mg/dL AST 416 H (15-37) U/L ALT 307 H (14-59) U/L Alkaline Phosphatase 171 H (46-116) U/L Total Protein 5.9 L (6.4-8.2) g/dl Albumin 2.7 L (3.4-5.0) g/dl Globulin 3.2 gm/dL Albumin/Globulin Ratio 0.8 L (1-2) Result Diagrams: 01/12/21 10:31 01/12/21 10:31 Dariusz Results Last 24 hrs: Microbiology 01/08/21 13:50 Urine Culture - Final Urine Escherichia Coli Sepsis Event Note - Evaluation Sepsis Screening Result: Possible Sepsis Risk - Focused Exam Vital Signs: Vital Signs Temp Pulse Resp BP Pulse Ox 01/12/21 08:00 97.6 F 110 H 16 114/87 100 01/12/21 06:00 18 95 01/12/21 04:00 97.6 F 17 123/90 94 L 01/12/21 02:00 20 95 - Problem List & Annotations (1) Hypoalbuminemia due to protein-calorie malnutrition SNOMED Code(s): 66837035868323 Code(s): E88.09 - OTH DISORDERS OF PLASMA-PROTEIN METABOLISM, NEC; E46 - UNSPECIFIED PROTEIN-CALORIE MALNUTRITION Status: Acute Current Visit: Yes (2) Severe protein-calorie malnutrition ([place]encio: less than 60% of standard weight) SNOMED Code(s): 009862085 Code(s): E43 - UNSPECIFIED SEVERE PROTEIN-CALORIE MALNUTRITION Status: Acute Current Visit: Yes (3) Alcohol withdrawal syndrome SNOMED Code(s): 142597313 Code(s): F10.239 - ALCOHOL DEPENDENCE WITH WITHDRAWAL, UNSPECIFIED Status: Acute Current Visit: Yes (4) Lactic acid acidosis SNOMED Code(s): 06541280 Code(s): E87.2 - ACIDOSIS Status: Resolved Priority: High Current Visit: Yes Onset Date: ~01/08/21 (5) Liver disease, alcoholic SNOMED Code(s): 15991767 Code(s): K70.9 - ALCOHOLIC LIVER DISEASE, UNSPECIFIED Status: Acute Priority: High Current Visit: Yes Onset Date: ~01/08/21 - Problem List Review Problem List Initiated/Reviewed/Updated: Yes - My Orders Last 24 Hours: My Active Orders 01/11/21 17:00 cephALEXin [Keflex] 500 mg PO QID 01/12/21 09:00 Thiamine [Vitamin B-1] 100 mg PO DAILY 01/12/21 11:56 Admission Status [Patient Status] [ADT] Routine 01/13/21 05:11 CMP [COMPREHENSIVE METABOLIC PN,CMP] [CHEM] AM - Plan Plan:: 25-year-old female with chronic alcoholism found by brother after not arousing for 10 hours. Altered mental status/metabolic encephalopathy -improved -Secondary to alcohol withdrawal with possible withdrawal seizure -No significant findings suggestive of severe infection, meningitis, sepsis -Requiring no Ativan over the last 24 hours Alcoholism/alcohol withdrawal syndrome -Patient still has improving tremors and tachycardia from alcohol withdrawal -Continues to require Ativan but less -Continue CIWA protocol -Recommend outpatient treatment for alcoholism Ataxia -Likely secondary to both toxin metabolites of alcohol and deconditioning. -PT to continue working with her -She is not likely to get opportunity to go to rehab but we will continue to look into that as an opportunity Alcoholic liver disease -Bilirubin stable at 2.1 -Liver enzymes increased -Ultrasound the abdomen showed 1. Fatty infiltration within the liver. 2. Collapsed gallbladder presumably causing gallbladder wall thickening. Prominent amount of fluid is seen around the gallbladder which raises the possibility of diffuse inflammatory change. No definite shadowing cholelithiasis or biliary duct dilatation is seen. Please correlate if patient has any symptoms of a calculus cholecystitis. She does not have any pain in the abdomen or pain or nausea after eating. 3. Other portions of the right upper quadrant abdominal ultrasound are unremarkable. -Significant hypoalbuminemia with diffuse anasarca. Albumin 2.3. -Advance diet as tolerated -Protein supplementation -Follow CMP daily Macrocytic anemia -Significant drop in hemoglobin, but increased by 1.5 g overnight continue to suggest dilution. -Initial hemoglobin of 15 was likely secondary to hemoconcentration from poor oral intake over the last few days per her brother -Supplementation of thiamine, folic acid, and B12 -check iron, tbic, folate -Encourage oral intake -IV fluids stopped Uncomplicated UTI -due to E. coli -Finish 5 days with Keflex. -White count is normal Severe protein malnutrition with electrolyte abnormalities -Supplement and follow as needed -Encourage oral intake VTE prophylaxis with Lovenox CODE STATUS: Full code
[2021-01-12] MEDS: Folic Acid 1 MG Tab PO SCH (20:16)
[2021-01-13] MEDS: Nicotine 21 MG/24 Hr Patch TRDERM SCH (09:41)
[2021-01-13] MEDS: Thiamine 100 MG Tab PO SCH (09:42)
[2021-01-13] MEDS: Enoxaparin 40 MG/0.4 ML Syringe SUBCUT SCH (09:42)
[2021-01-13] MEDS: Cyanocobalamin (Vitamin B12) 1,000 MCG Tab PO SCH (09:42)
[2021-01-13] MEDS: Cephalexin 500 MG Cap PO SCH ×3 (09:42→17:21)
--- NOTE | 2021-01-13 16:50 | PCM.PN ---
- General Info Date of Service: 01/13/21 Admission Dx/Problem (Free Text): etoh abuse /unresponsive. Subjective Update: Cheryl is much more awake and oriented today. She was more talkative and initially refused PT. After discussing the benefits of physical therapy with her and needing to be able to walk better to go home she was much more willing to participate. Functional Status: Reports: Pain Controlled - Review of Systems General: Reports: Fatigue HEENT: Reports: No Symptoms Pulmonary: Reports: No Symptoms Cardiovascular: Reports: No Symptoms - Patient Data Vitals - Most Recent: Last Vital Signs Temp 96.9 F 01/13/21 11:16 Pulse 102 H 01/12/21 15:00 Resp 18 01/13/21 11:16 BP 113/82 01/13/21 11:16 Pulse Ox 100 01/13/21 11:16 Weight - Most Recent: 114 lb 11.2 oz I&O - Last 24 Hours: Intake & Output 01/13/21 01/13/21 01/13/21 06:59 14:59 22:59 Intake Total 780 320 Output Total 700 Balance 80 320 Lab Results Last 24 Hours: Laboratory Results - last 24 hr 01/08/21 01/13/21 Range/Units 13:50 05:20 Sodium 142 (136-145) mEq/L Potassium 5.0 (3.5-5.1) mEq/L Chloride 109 H (98-107) mEq/L Carbon Dioxide 23 (21-32) mEq/L Anion Gap 15.0 (5-15) BUN 12 (7-18) mg/dL Creatinine 0.5 L (0.55-1.02) mg/dL Est Cr Clr Drug Dosing 132.51 mL/min Estimated GFR (MDRD) > 60 (>60) mL/min BUN/Creatinine Ratio 24.0 H (14-18) Glucose 96 (70-99) mg/dL Calcium 8.7 (8.5-10.1) mg/dL Total Bilirubin 1.8 H (0.2-1.0) mg/dL AST 294 H (15-37) U/L ALT 235 H (14-59) U/L Alkaline Phosphatase 138 H (46-116) U/L Total Protein 5.4 L (6.4-8.2) g/dl Albumin 2.4 L (3.4-5.0) g/dl Globulin 3.0 gm/dL Albumin/Globulin Ratio 0.8 L (1-2) Urine Myoglobin <2 (0-13) ng/mL Med Orders - Current: Current Medications Cephalexin (Cephalexin 500 Mg Cap) 500 mg PO QID [facility] Stop: 01/13/21 17:01 Last Admin: 01/13/21 13:12 Dose: 500 mg Documented by: Cyanocobalamin (Cyanocobalamin (Vitamin B12) 1,000 Mcg Tab) 1,000 mcg PO DAILY [facility] Last Admin: 01/13/21 09:42 Dose: 1,000 mcg Documented by: Enoxaparin Sodium (Enoxaparin 40 Mg/0.4 Ml Syringe) 40 mg SUBCUT DAILY [facility] Last Admin: 01/13/21 09:42 Dose: 40 mg Documented by: Folic Acid (Folic Acid 1 Mg Tab) 1 mg PO BEDTIME [facility] Last Admin: 01/12/21 20:16 Dose: 1 mg Documented by: Lorazepam (Lorazepam 2 Mg/Ml Sdv) 1 - 3 mg IVPUSH ASDIRECTED PRN; Protocol PRN Reason: Withdrawal Symptoms Last Admin: 01/11/21 04:59 Dose: 1 mg Documented by: Lorazepam (Lorazepam 1 Mg Tab) 1 - 3 mg PO ASDIRECTED PRN; Protocol PRN Reason: Withdrawal Symptoms Last Admin: 01/11/21 16:59 Dose: 1 mg Documented by: Miscellaneous Information (Remove Nicotine Patch) 1 ea TRDERM DAILY [facility] Last Admin: 01/13/21 09:42 Dose: 1 ea Documented by: Nicotine (Nicotine 21 Mg/24 Hr Patch) 21 mg TRDERM DAILY [facility] Last Admin: 01/13/21 09:41 Dose: 21 mg Documented by: Ondansetron HCl (Ondansetron 4 Mg/2 Ml Sdv) 4 mg IVPUSH Q6HR PRN PRN Reason: Nausea/Vomiting Last Admin: 01/09/21 16:53 Dose: 4 mg Documented by: Ondansetron HCl (Ondansetron 4 Mg Tab.Dis) 4 mg PO Q6H PRN PRN Reason: Nausea/Vomiting Thiamine HCl (Thiamine 100 Mg Tab) 100 mg PO DAILY [facility] Last Admin: 01/13/21 09:42 Dose: 100 mg Documented by: Discontinued Medications Cyanocobalamin (Cyanocobalamin (Vitamin B12) 1,000 Mcg/Ml Sdv) 1,000 mcg IM ONETIME ONE Stop: 01/09/21 11:10 Last Admin: 01/09/21 11:56 Dose: 1,000 mcg Documented by: Furosemide (Furosemide 20 Mg/2 Ml Vial) 20 mg IVPUSH ONETIME ONE Stop: 01/09/21 16:21 Last Admin: 01/09/21 17:12 Dose: 20 mg Documented by: Dextrose/Sodium Chloride (Dextrose 5%-Normal Saline) 1,000 mls @ 500 mls/hr IV ASDIRECTED [facility] Last Infusion: 01/08/21 14:07 Dose: 500 mls/hr Documented by: Sodium Chloride (Normal Saline) 1,000 mls @ 999 mls/hr IV ASDIRECTED [facility] Last Admin: 01/08/21 15:40 Dose: 999 mls/hr Documented by: Potassium Chloride 10 meq/ (Premix) 100 mls @ 100 mls/hr IV Q1H [facility] Stop: 01/08/21 17:29 Last Admin: 01/08/21 17:33 Dose: 100 mls/hr Documented by: Ceftriaxone Sodium 2 gm/ (Sodium Chloride) 100 mls @ 200 mls/hr IV ONETIME ONE Stop: 01/08/21 15:55 Last Admin: 01/08/21 15:40 Dose: 200 mls/hr Documented by: Sodium Chloride (Normal Saline) 1,000 mls @ 999 mls/hr IV ASDIRECTED VALDO Last Admin: 01/08/21 17:46 Dose: 999 mls/hr Documented by: Sodium Chloride (Normal Saline) 1,000 mls @ 150 mls/hr IV ASDIRECTED VALDO Last Admin: 01/08/21 18:56 Dose: 150 mls/hr Documented by: Dextrose/Sodium Chloride (Dextrose 5%-Normal Saline) 1,000 mls @ 999 mls/hr IV ASDIRECTED VALDO Last Admin: 01/08/21 19:18 Dose: 999 mls/hr Documented by: Dextrose/Sodium Chloride (Dextrose 5%-Normal Saline) 1,000 mls @ 150 mls/hr IV ASDIRECTED VALDO Last Admin: 01/09/21 11:05 Dose: 150 mls/hr Documented by: Potassium Chloride 10 meq/ (Premix) 100 mls @ 100 mls/hr IV Q1H [facility] Stop: 01/08/21 23:59 Last Admin: 01/08/21 22:55 Dose: 100 mls/hr Documented by: Ceftriaxone Sodium 2 gm/ (Sodium Chloride) 100 mls @ 200 mls/hr IV Q24H [facility] Last Admin: 01/10/21 16:40 Dose: 200 mls/hr Documented by: Potassium Chloride 10 meq/ (Premix) 100 mls @ 100 mls/hr IV Q1H [facility] Stop: 01/09/21 11:59 Last Admin: 01/09/21 11:05 Dose: 100 mls/hr Documented by: Magnesium Sulfate 4 gm/ Premix 50 mls @ 12.5 mls/hr IV ONETIME ONE Stop: 01/09/21 11:45 Last Admin: 01/09/21 08:01 Dose: 12.5 mls/hr Documented by: Albumin Human (Flexbumin 25%) 12.5 gm in 50 mls @ 100 mls/hr IV ONETIME ONE Stop: 01/09/21 11:32 Last Admin: 01/09/21 11:14 Dose: 100 mls/hr Documented by: Potassium Phosphate 15 mmole/ (Sodium Chloride) 255 mls @ 85 mls/hr IV ONETIME ONE Stop: 01/09/21 14:59 Last Admin: 01/09/21 12:13 Dose: 85 mls/hr Documented by: Albumin Human (Flexbumin 25%) 12.5 gm in 50 mls @ 100 mls/hr IV ONETIME ONE Stop: 01/09/21 16:49 Last Admin: 01/09/21 16:40 Dose: 100 mls/hr Documented by: Magnesium Sulfate 4 gm/ Premix 50 mls @ 12.5 mls/hr IV ONETIME ONE Stop: 01/11/21 14:29 Last Admin: 01/11/21 12:18 Dose: 12.5 mls/hr Documented by: Lorazepam (Lorazepam 2 Mg/Ml Sdv) 1 mg IV ONETIME ONE Stop: 01/08/21 16:40 Last Admin: 01/08/21 17:01 Dose: 1 mg Documented by: Lorazepam (Lorazepam 2 Mg/Ml Sdv) 1 mg IVPUSH ONETIME ONE Stop: 01/08/21 18:41 Last Admin: 01/08/21 18:52 Dose: 1 mg Documented by: Nicotine (Nicotine 21 Mg/24 Hr Patch) 21 mg TRDERM ONETIME ONE Stop: 01/09/21 04:46 Last Admin: 01/09/21 04:49 Dose: 21 mg Documented by: Potassium Chloride (Potassium Chloride 20 Meq Tab.Er) 20 meq PO ONETIME ONE Stop: 01/09/21 16:23 Last Admin: 01/09/21 16:40 Dose: 20 meq Documented by: Thiamine HCl (Thiamine 200 Mg/2 Ml Mdv) 100 mg IVPUSH ONETIME ONE Stop: 01/08/21 16:43 Last Admin: 01/08/21 17:01 Dose: 100 mg Documented by: Thiamine HCl (Thiamine 200 Mg/2 Ml Mdv) 100 mg IVPUSH DAILY [facility] Last Admin: 01/11/21 09:55 Dose: 100 mg Documented by: - Exam Quality Assessment: No: Supplemental Oxygen Urinary Catheter Total Time: 1Days 14Hours General: Alert, Oriented HEENT: Pupils Equal, Mucous Membr. Moist/[place] Neck: Supple Lungs: Clear to Auscultation, Normal Respiratory Effort Cardiovascular: Regular Rate, Regular Rhythm Extremities: Normal Inspection, Normal Range of Motion, Non-Tender, No Pedal Edema Skin: Warm, Dry, Intact - Patient Data Lab Results Last 24 hrs: Laboratory Results - last 24 hr 01/08/21 01/13/21 Range/Units 13:50 05:20 Sodium 142 (136-145) mEq/L Potassium 5.0 (3.5-5.1) mEq/L Chloride 109 H (98-107) mEq/L Carbon Dioxide 23 (21-32) mEq/L Anion Gap 15.0 (5-15) BUN 12 (7-18) mg/dL Creatinine 0.5 L (0.55-1.02) mg/dL Est Cr Clr Drug Dosing 132.51 mL/min Estimated GFR (MDRD) > 60 (>60) mL/min BUN/Creatinine Ratio 24.0 H (14-18) Glucose 96 (70-99) mg/dL Calcium 8.7 (8.5-10.1) mg/dL Total Bilirubin 1.8 H (0.2-1.0) mg/dL AST 294 H (15-37) U/L ALT 235 H (14-59) U/L Alkaline Phosphatase 138 H (46-116) U/L Total Protein 5.4 L (6.4-8.2) g/dl Albumin 2.4 L (3.4-5.0) g/dl Globulin 3.0 gm/dL Albumin/Globulin Ratio 0.8 L (1-2) Urine Myoglobin <2 (0-13) ng/mL Result Diagrams: 01/12/21 10:31 01/13/21 05:20 Sepsis Event Note - Evaluation Sepsis Screening Result: Possible Sepsis Risk - Focused Exam Vital Signs: Vital Signs Temp Resp BP Pulse Ox 01/13/21 11:16 96.9 F 18 113/82 100 - Problem List & Annotations (1) Hypoalbuminemia due to protein-calorie malnutrition SNOMED Code(s): 34392263687399 Code(s): E88.09 - OTH DISORDERS OF PLASMA-PROTEIN METABOLISM, NEC; E46 - UNSPECIFIED PROTEIN-CALORIE MALNUTRITION Status: Acute Current Visit: Yes (2) Severe protein-calorie malnutrition (Ascencio: less than 60% of standard weight) SNOMED Code(s): 983237611 Code(s): E43 - UNSPECIFIED SEVERE PROTEIN-CALORIE MALNUTRITION Status: Acute Current Visit: Yes (3) Alcohol withdrawal syndrome SNOMED Code(s): 308010508 Code(s): F10.239 - ALCOHOL DEPENDENCE WITH WITHDRAWAL, UNSPECIFIED Status: Acute Current Visit: Yes (4) Lactic acid acidosis SNOMED Code(s): 29977601 Code(s): E87.2 - ACIDOSIS Status: Resolved Priority: High Current Visit: Yes Onset Date: ~01/08/21 (5) Liver disease, alcoholic SNOMED Code(s): 89678525 Code(s): K70.9 - ALCOHOLIC LIVER DISEASE, UNSPECIFIED Status: Acute Priority: High Current Visit: Yes Onset Date: ~01/08/21 - Problem List Review Problem List Initiated/Reviewed/Updated: Yes - My Orders Last 24 Hours: My Active Orders 01/14/21 05:11 CMP [COMPREHENSIVE METABOLIC PN,CMP] [CHEM] AM MAGNESIUM [CHEM] AM - Plan Plan:: 25-year-old female with chronic alcoholism found by brother after not arousing for 10 hours. Altered mental status/metabolic encephalopathy -improved -Secondary to alcohol withdrawal with possible withdrawal seizure -No significant findings suggestive of severe infection, meningitis, sepsis -Requiring no Ativan over the last 2 days Alcoholism/alcohol withdrawal syndrome -Patient still has tremors and tachycardia, but improved -Continue [facility] protocol -Recommend outpatient treatment for alcoholism Ataxia-improved -Likely secondary to both toxin metabolites of alcohol and deconditioning. -PT to continue working with her -She is not likely to get opportunity to go to rehab but we will continue to look into that as an opportunity Alcoholic liver disease -Bilirubin improved at 1.8 -Liver enzymes increased -Ultrasound the abdomen showed 1. Fatty infiltration within the liver. 2. Collapsed gallbladder presumably causing gallbladder wall thickening. Prominent amount of fluid is seen around the gallbladder which raises the possibility of diffuse inflammatory change. No definite shadowing cholelithiasis or biliary duct dilatation is seen. Please correlate if patient has any symptoms of a calculus cholecystitis. She does not have any pain in the abdomen or pain or nausea after eating. 3. Other portions of the right upper quadrant abdominal ultrasound are unremarkable. -Significant hypoalbuminemia with diffuse anasarca. Albumin 2.3. -Advance diet as tolerated -Protein supplementation -Follow CMP daily Macrocytic anemia -Significant drop in hemoglobin, but increased by 1.5 g overnight continue to suggest dilution. -Initial hemoglobin of 15 was likely secondary to hemoconcentration from poor oral intake over the last few days per her brother -Supplementation of thiamine, folic acid, and B12 -Encourage oral intake -IV fluids stopped Uncomplicated UTI -due to E. coli -Finish 5 days with Keflex. -White count is normal Severe protein malnutrition with electrolyte abnormalities -Supplement and follow as needed -Encourage oral intake VTE prophylaxis with Lovenox CODE STATUS: Full code
[2021-01-13] MEDS: Folic Acid 1 MG Tab PO SCH (20:37)
[2021-01-14] MEDS: Nicotine 21 MG/24 Hr Patch TRDERM SCH (09:12)
[2021-01-14] MEDS: Thiamine 100 MG Tab PO SCH (09:29)
[2021-01-14] MEDS: Cyanocobalamin (Vitamin B12) 1,000 MCG Tab PO SCH (09:29)
--- NOTE | 2021-01-14 14:07 | PCM.DCSUM1 ---
Discharge Summary - Hospital Course HPI Initial Comments: 25 yeqr old female admitted with altered state of conc. with slurred words and impairment on exam. recently given ativan for hallucinations (visual). able to give hx to e.r . crew earlier. she drinks 500-750 cc whiskey day and has been out and was found by brother because she usually does not sleep that long. usually gets up every hour to smoke and he found her unresposive this am and she figuired she may have been out 10 hours words slurred and affect drunken and unable to walk well by herself even with assistance. etoh level zero however and possible seizure suggested bu lactic acidosis and length of time unresponsive. ct scan of head done and normal . ct scan of abd pelvis done and shows liver enlarged and steatohepatitis,no pancreatitis and no dilation or def. cholestasis. moves all extremities and follows simple commands and hearing and vision appear okay .answers yes no questions and has been incontinant of stoo and bladder and meredith placed for i//o measurement. mild bruises seen on anterior and lateral shins. she was given i.v fluid on impression of acute etoh overdose. seizures/metabolic (liver failure) tb 4.7 and all lfts moderately elevated given 3 litters in e.r. and lactic acid initially 10 decreased only to 8 range. search for possible sepsis and cultures sent for urine and blood. Rocephin started. labs show normal cbc and hgn with normal platelets and macrocytic indices.and some urine output and meredith cath placed. urinalysis pending. hx fragmented and filled in by brother. hx of chronic etohism but last seen this e.r 3 years ago and previous episode of hemoptysis/hematochezia. denies any hx of viral hep or liver or pancreatic issues. no transfusions and no jaundice and is eating. denies any seizures and notes shakes if quits drinking but occasionally does. denies fever chills falls head injuries and or other injuries. denies melana and or brbr. ros very limited and now sleeping again and difficult to get to answer questions. plan: admit to scu/// repeat lactic acid in am and cont i.v hydration as urine output slow despite fluid today. no def atn but suspected. 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 dx of cirrhosis t.b 4.7) and etoh withdrawal. emperic rocephin started sec. to lactic acidosis but may be just related to hydration // liver disease or other cause. no signs infection currently emperic culture screen urine and blood. no signs menningitis and or acute hepatic encephalitis on reeval. lfts moderately elavated but lipase normal a nd ct scan no acute pancreatitis. nicotine widthdrawal and patch offerred. covid hx and screen negative. rule out cardiac and or myoglobinemia but no infiltrates seen on xray. responding to ativan/hydration /thiamine but may need additional treatments /supportive care for withdrawal. electrolytes fairly unremarkable. Diagnosis: Stroke: No - Discharge Data Discharge Date: 01/14/21 Discharge Disposition: Home, Self-Care 01 Condition: Good - Referral to Home Health Primary Care Physician: PCP None - Discharge Diagnosis/Problem(s) (1) Hypoalbuminemia due to protein-calorie malnutrition SNOMED Code(s): 33025315470464 ICD Code: E88.09 - OTH DISORDERS OF PLASMA-PROTEIN METABOLISM, NEC; E46 - UNSPECIFIED PROTEIN-CALORIE MALNUTRITION Status: Acute Current Visit: Yes (2) Severe protein-calorie malnutrition (Ascencio: less than 60% of standard weight) SNOMED Code(s): 606696023 ICD Code: E43 - UNSPECIFIED SEVERE PROTEIN-CALORIE MALNUTRITION Status: Acute Current Visit: Yes (3) Alcohol withdrawal syndrome SNOMED Code(s): 460212734 ICD Code: F10.239 - ALCOHOL DEPENDENCE WITH WITHDRAWAL, UNSPECIFIED Status: Acute Current Visit: Yes (4) Lactic acid acidosis SNOMED Code(s): 55934481 ICD Code: E87.2 - ACIDOSIS Status: Resolved Priority: High Current Visit: Yes Onset Date: ~01/08/21 (5) Liver disease, alcoholic SNOMED Code(s): 59732678 ICD Code: K70.9 - ALCOHOLIC LIVER DISEASE, UNSPECIFIED Status: Acute Priority: High Current Visit: Yes Onset Date: ~01/08/21 - Patient Summary/Data Consults: Consultations 01/11/21 10:43 PT Evaluation and Treatment [CONS] Routine 01/14/21 08:35 Consult to Physician [CONS] Routine Hospital Course: Patient was admitted and we started CIWA protocol. We replaced thiamine, folic acid, and vitamin B12. She has significant alcoholic hepatitis with elevated bilirubin and low albumin. These did improve, but did not normalize before discharge. Patient was completely weaned off of benzodiazepines with in 3 days prior to admission. Patient participated with physical therapy and had improvement in her ambulation but continued to be weak and have gait instability. Please see physical therapy recommendations. Patient was given multiple options for treatment of her alcoholism and she decided on [facility] and was given the information for screening. Ultrasound of the abdomen was performed because of the elevated LFTs which showed fatty infiltration within the liver. No definite shadowing suggesting cholelithiasis or biliary duct dilatation. - Patient Instructions Diet: Regular Diet as Tolerated, No Alcoholic Beverages Driving: Do Not Drive - Discharge Plan *PRESCRIPTION DRUG MONITORING PROGRAM REVIEWED*: Not Applicable *COPY OF PRESCRIPTION DRUG MONITORING REPORT IN PATIENT STEPHEN: Not Applicable Prescriptions/Med Rec: Folic Acid 1 mg PO BEDTIME #30 tablet Nicotine [Habitrol] 21 mg TRDERM DAILY #30 patch Thiamine [Vitamin B-1] 100 mg PO DAILY #30 tablet Cyanocobalamin (Vitamin B12) [Vitamin B12] 1,000 mcg PO DAILY #30 tablet Tobacco Cessation Medication: Prescription Refused Home Medications: Home Meds Cyanocobalamin (Vitamin B12) [Vitamin B12] 1,000 mcg PO DAILY #30 tablet 01/14/21 [Rx] Folic Acid 1 mg PO BEDTIME #30 tablet 01/14/21 [Rx] Nicotine [Habitrol] 21 mg TRDERM DAILY #30 patch 01/14/21 [Rx] Remove Patch 1 ea TRDERM DAILY each 01/14/21 [Rx] Thiamine [Vitamin B-1] 100 mg PO DAILY #30 tablet 01/14/21 [Rx] Patient Handouts: Supporting Someone With an Addiction, Alcohol Abuse and Dependence Information, Adult, Alcohol Intoxication, [id number]-[id number], Steps to Quit Smoking, Sepsis, Self Care, Adult Forms: ED Department Discharge Referrals: Serena Santana MD [Physician] - 01/19/21 8:40 am (Please check in at 8:40 for appt.) - Discharge Summary/Plan Comment DC Time >30 min.: No Total # of Minutes for Discharge Time: 25 - General Info Date of Service: 01/14/21 Admission Dx/Problem (Free Text: etoh abuse /unresponsive. Subjective Update: Patient states she has having no pain. She feels stable on her feet and is able to walk around the unit without the use of a walker. She states she is ready for discharge. She also states she does not want to talk to psychiatry. Functional Status: Reports: Pain Controlled - Review of Systems General: Reports: No Symptoms HEENT: Reports: No Symptoms Pulmonary: Reports: No Symptoms Cardiovascular: Reports: No Symptoms Gastrointestinal: Reports: No Symptoms - Patient Data Vitals - Most Recent: Last Vital Signs Temp 98.4 F 01/14/21 02:47 Pulse 96 01/14/21 02:47 Resp 14 01/14/21 02:47 BP 120/71 01/14/21 02:47 Pulse Ox 100 01/14/21 02:47 Weight - Most Recent: 107 lb 4.8 oz I&O - Last 24 hours: Intake & Output 01/13/21 01/14/21 01/14/21 22:59 06:59 14:59 Intake Total 320 600 Balance 320 600 Lab Results - Last 24 hrs: Laboratory Results - last 24 hr 01/08/21 01/14/21 Range/Units 13:50 06:49 Sodium 136 (136-145) mEq/L Potassium 4.8 (3.5-5.1) mEq/L Chloride 103 (98-107) mEq/L Carbon Dioxide 22 (21-32) mEq/L Anion Gap 15.8 H (5-15) BUN 12 (7-18) mg/dL Creatinine 0.5 L (0.55-1.02) mg/dL Est Cr Clr Drug Dosing 132.51 mL/min Estimated GFR (MDRD) > 60 (>60) mL/min BUN/Creatinine Ratio 24.0 H (14-18) Glucose 90 (70-99) mg/dL Calcium 9.1 (8.5-10.1) mg/dL Magnesium 1.9 (1.8-2.4) mg/dL Total Bilirubin 1.8 H (0.2-1.0) mg/dL AST 281 H (15-37) U/L ALT 224 H (14-59) U/L Alkaline Phosphatase 136 H (46-116) U/L Total Protein 6.0 L (6.4-8.2) g/dl Albumin 2.7 L (3.4-5.0) g/dl Globulin 3.3 gm/dL Albumin/Globulin Ratio 0.8 L (1-2) Urine Myoglobin <2 (0-13) ng/mL RODNEY Results - Last 24 hrs: Microbiology 01/08/21 14:05 Blood Culture - Final Blood - Venous - Lab Draw 01/08/21 14:16 Blood Culture - Final Blood - Venous Med Orders - Current: Current Medications Cyanocobalamin (Cyanocobalamin (Vitamin B12) 1,000 Mcg Tab) 1,000 mcg PO DAILY [facility] Last Admin: 01/14/21 09:29 Dose: 1,000 mcg Documented by: Folic Acid (Folic Acid 1 Mg Tab) 1 mg PO BEDTIME [facility] Last Admin: 01/13/21 20:37 Dose: 1 mg Documented by: Lorazepam (Lorazepam 2 Mg/Ml Sdv) 1 - 3 mg IVPUSH ASDIRECTED PRN; Protocol PRN Reason: Withdrawal Symptoms Last Admin: 01/11/21 04:59 Dose: 1 mg Documented by: Lorazepam (Lorazepam 1 Mg Tab) 1 - 3 mg PO ASDIRECTED PRN; Protocol PRN Reason: Withdrawal Symptoms Last Admin: 01/11/21 16:59 Dose: 1 mg Documented by: Miscellaneous Information (Remove Nicotine Patch) 1 ea TRDERM DAILY [facility] Last Admin: 01/14/21 09:29 Dose: 1 ea Documented by: Nicotine (Nicotine 21 Mg/24 Hr Patch) 21 mg TRDERM DAILY [facility] Last Admin: 01/14/21 09:12 Dose: 21 mg Documented by: Ondansetron HCl (Ondansetron 4 Mg/2 Ml Sdv) 4 mg IVPUSH Q6HR PRN PRN Reason: Nausea/Vomiting Last Admin: 01/09/21 16:53 Dose: 4 mg Documented by: Ondansetron HCl (Ondansetron 4 Mg Tab.Dis) 4 mg PO Q6H PRN PRN Reason: Nausea/Vomiting Thiamine HCl (Thiamine 100 Mg Tab) 100 mg PO DAILY [facility] Last Admin: 01/14/21 09:29 Dose: 100 mg Documented by: Discontinued Medications Cephalexin (Cephalexin 500 Mg Cap) 500 mg PO QID [facility] Stop: 01/13/21 17:01 Last Admin: 01/13/21 17:21 Dose: 500 mg Documented by: Cyanocobalamin (Cyanocobalamin (Vitamin B12) 1,000 Mcg/Ml Sdv) 1,000 mcg IM ONETIME ONE Stop: 01/09/21 11:10 Last Admin: 01/09/21 11:56 Dose: 1,000 mcg Documented by: Enoxaparin Sodium (Enoxaparin 40 Mg/0.4 Ml Syringe) 40 mg SUBCUT DAILY [facility] Last Admin: 01/13/21 09:42 Dose: 40 mg Documented by: Furosemide (Furosemide 20 Mg/2 Ml Vial) 20 mg IVPUSH ONETIME ONE Stop: 01/09/21 16:21 Last Admin: 01/09/21 17:12 Dose: 20 mg Documented by: Dextrose/Sodium Chloride (Dextrose 5%-Normal Saline) 1,000 mls @ 500 mls/hr IV ASDIRECTED [facility] Last Infusion: 01/08/21 14:07 Dose: 500 mls/hr Documented by: Sodium Chloride (Normal Saline) 1,000 mls @ 999 mls/hr IV ASDIRECTED [facility] Last Admin: 01/08/21 15:40 Dose: 999 mls/hr Documented by: Potassium Chloride 10 meq/ (Premix) 100 mls @ 100 mls/hr IV Q1H [facility] Stop: 01/08/21 17:29 Last Admin: 01/08/21 17:33 Dose: 100 mls/hr Documented by: Ceftriaxone Sodium 2 gm/ (Sodium Chloride) 100 mls @ 200 mls/hr IV ONETIME ONE Stop: 01/08/21 15:55 Last Admin: 01/08/21 15:40 Dose: 200 mls/hr Documented by: Sodium Chloride (Normal Saline) 1,000 mls @ 999 mls/hr IV ASDIRECTED [facility] Last Admin: 01/08/21 17:46 Dose: 999 mls/hr Documented by: Sodium Chloride (Normal Saline) 1,000 mls @ 150 mls/hr IV ASDIRECTED [facility] Last Admin: 01/08/21 18:56 Dose: 150 mls/hr Documented by: Dextrose/Sodium Chloride (Dextrose 5%-Normal Saline) 1,000 mls @ 999 mls/hr IV ASDIRECTED [facility] Last Admin: 01/08/21 19:18 Dose: 999 mls/hr Documented by: Dextrose/Sodium Chloride (Dextrose 5%-Normal Saline) 1,000 mls @ 150 mls/hr IV ASDIRECTED [facility] Last Admin: 01/09/21 11:05 Dose: 150 mls/hr Documented by: Potassium Chloride 10 meq/ (Premix) 100 mls @ 100 mls/hr IV Q1H [facility] Stop: 01/08/21 23:59 Last Admin: 01/08/21 22:55 Dose: 100 mls/hr Documented by: Ceftriaxone Sodium 2 gm/ (Sodium Chloride) 100 mls @ 200 mls/hr IV Q24H [facility] Last Admin: 01/10/21 16:40 Dose: 200 mls/hr Documented by: Potassium Chloride 10 meq/ (Premix) 100 mls @ 100 mls/hr IV Q1H [facility] Stop: 01/09/21 11:59 Last Admin: 01/09/21 11:05 Dose: 100 mls/hr Documented by: Magnesium Sulfate 4 gm/ Premix 50 mls @ 12.5 mls/hr IV ONETIME ONE Stop: 01/09/21 11:45 Last Admin: 01/09/21 08:01 Dose: 12.5 mls/hr Documented by: Albumin Human (Flexbumin 25%) 12.5 gm in 50 mls @ 100 mls/hr IV ONETIME ONE Stop: 01/09/21 11:32 Last Admin: 01/09/21 11:14 Dose: 100 mls/hr Documented by: Potassium Phosphate 15 mmole/ (Sodium Chloride) 255 mls @ 85 mls/hr IV ONETIME ONE Stop: 01/09/21 14:59 Last Admin: 01/09/21 12:13 Dose: 85 mls/hr Documented by: Albumin Human (Flexbumin 25%) 12.5 gm in 50 mls @ 100 mls/hr IV ONETIME ONE Stop: 01/09/21 16:49 Last Admin: 01/09/21 16:40 Dose: 100 mls/hr Documented by: Magnesium Sulfate 4 gm/ Premix 50 mls @ 12.5 mls/hr IV ONETIME ONE Stop: 01/11/21 14:29 Last Admin: 01/11/21 12:18 Dose: 12.5 mls/hr Documented by: Lorazepam (Lorazepam 2 Mg/Ml Sdv) 1 mg IV ONETIME ONE Stop: 01/08/21 16:40 Last Admin: 01/08/21 17:01 Dose: 1 mg Documented by: Lorazepam (Lorazepam 2 Mg/Ml Sdv) 1 mg IVPUSH ONETIME ONE Stop: 01/08/21 18:41 Last Admin: 09/04/21 18:52 Dose: 1 mg Documented by: Nicotine (Nicotine 21 Mg/24 Hr Patch) 21 mg TRDERM ONETIME ONE Stop: 01/09/21 04:46 Last Admin: 01/09/21 04:49 Dose: 21 mg Documented by: Potassium Chloride (Potassium Chloride 20 Meq Tab.Er) 20 meq PO ONETIME ONE Stop: 01/09/21 16:23 Last Admin: 01/09/21 16:40 Dose: 20 meq Documented by: Thiamine HCl (Thiamine 200 Mg/2 Ml Mdv) 100 mg IVPUSH ONETIME ONE Stop: 01/08/21 16:43 Last Admin: 01/08/21 17:01 Dose: 100 mg Documented by: Thiamine HCl (Thiamine 200 Mg/2 Ml Mdv) 100 mg IVPUSH DAILY [facility] Last Admin: 01/11/21 09:55 Dose: 100 mg Documented by: - Exam General: Reports: Alert, Oriented HEENT: Reports: Pupils Equal, Mucous Membr. Moist/[place] Neck: Reports: Supple Lungs: Reports: Clear to Auscultation, Normal Respiratory Effort Cardiovascular: Reports: Regular Rate, Regular Rhythm GI/Abdominal Exam: Normal Bowel Sounds, Soft, Non-Tender, No Organomegaly, No Distention
[2021-01-14 16:35] VITALS: BP 110/78; PULSE 101
== END 2021-01-14 15:45 | disposition home or self-care (01) | DRG 896 ==
LOC: JD.ED 13:37 → JD.ICU 20:13 → JD.MS 01-13 19:25 → JD.OB 01-14 03:50
PROVIDERS: ADMIT Pediatrics; ATTEND Pediatrics
DX: F10.231 Alcohol dependence with withdrawal delirium (principal); E43 Unspecified severe protein-calorie malnutrition; G93.41 Metabolic encephalopathy; Z68.1 Body mass index [BMI] 19.9 or less, adult; E87.2 Acidosis; N39.0 Urinary tract infection, site not specified; Z20.822 Contact with and (suspected) exposure to COVID-19; E86.0 Dehydration; K70.9 Alcoholic liver disease, unspecified; K76.0 Fatty (change of) liver, not elsewhere classified; I50.9 Heart failure, unspecified; R56.9 Unspecified convulsions; B96.20 Unspecified Escherichia coli [E. coli] as the cause of diseases classified elsewhere; D53.9 Nutritional anemia, unspecified; R27.0 Ataxia, unspecified; E88.09 Other disorders of plasma-protein metabolism, not elsewhere classified; E87.6 Hypokalemia; E83.42 Hypomagnesemia; E83.39 Other disorders of phosphorus metabolism
CPT/HCPCS: 36415; 36600; 51702; 70450; 70450-26; 71045; 71045-26; 74177; 74177-26; 76705; 76705-26; 80048; 80053; 80306; 80307; 81001; 82009; 82140; 82550; 82803; 82947; 82977; 83605; 83690; 83735; 83874; 83880; 84100; 84484; 84703; 85025; 85610; 85730; 86140; 86803; 87040; 87086; 87088; 87186; 93005; 93010; 96365; 96366; 96367; 96375; 96376; 97110-GP; 97112-GP; 97116-GP; 97162-GP; 99232; 99233; 99238; 99285; 99285-25; A9270-GY; G0433; J0696; J1650; J1940; J2060; J2405; J3411; J3420; J3475; J3480; J3490; J7030; J7042; J7050; P9047; U0002